=== PATIENT | male | born 1940 | race African-American/Black ===

== ENCOUNTER 2017-05-12 12:10 | Inpatient (IN) | payer OTHER ==
--- NOTE | 2017-05-12 13:37 | PDOC ---
History of Present Illness - General History Source: Patient Exam Limitations: No Limitations - History of Present Illness Initial Comments: 05/12/17 14:18 The patient is a 76 year old male,MARGI brown with a significant past medical history of renal failure s/p left sided kidney transplant, triple bypass surgery, HTN, HLD, IDDM, CHF, who presents to the emergency department with hypoglycemia. EMS reports the patient having a finger stick of 31 earlier today with a return of his blood sugar to 247 after dextrose. Per EMS patient did not eat this morning or last night, but had his usual dose of insulin. Patients finger stick was 247 in the ED. He arrives with chief complaints of SOB but patient is a poor historian and can not elaborate on how long he has had SOB. On arrival to ED, O2 sat on RA was 85%, corrected to 96% on 3L. He denies any recent fevers, chills, headache or dizziness. He denies any recent nausea, vomit, diarrhea or constipation. He denies any recent chest pain. He denies any recent dysuria, frequency, urgency or hematuria. Allergies: NKA Past surgical history: See HPI Social History: Nonsmoker. Denies EtOH use and recreational drug use. Primary Care Physician: <Vaibhav Pineda - Last Filed: 05/12/17 14:18> <Ildefonso Maddox - Last Filed: 05/12/17 18:15> - General Chief Complaint: Blood Sugar Problem Stated Complaint: Blood Sugar Problem Time Seen by Provider: 05/12/17 12:35 Past History <Vaibhav Pineda - Last Filed: 05/12/17 14:18> - Past Medical History Diabetes: Yes Disorders: Yes (bph, uti,) HTN: Yes Liver Disease: Yes Suicide Attempt (Hx): No Other medical history: encephalopathy, chronic ulcer rt.foot. - Surgical History Cardiac Surgery: Yes - Psycho/Social/Smoking Cessation Hx Suicidal Ideation: No Smoking History: Former smoker Have you smoked in the past 12 months: No If you are a former smoker, when did you quit?: 12 years Information on smoking cessation initiated: No Hx Alcohol Use: No Drug/Substance Use Hx: No Substance Use Type: None <Ildefonso Maddox - Last Filed: 05/12/17 18:15> - Past Medical History Allergies/Adverse Reactions: Allergies Allergy/AdvReac Type Severity Reaction Status Date / Time No Known Allergies Allergy Verified 03/04/15 23:02 Home Medications: Ambulatory Orders Aspirin [Aspirin EC] 81 mg PO DAILY 03/05/15 Clonidine HCl 0.1 mg PO Q12H 03/05/15 Insulin (Levemir) [Levemir Flexpen -] 12 unit SQ HS 03/05/15 Prednisone [Deltasone -] 5 mg PO DAILY 03/05/15 Tacrolimus 5 mg PO BID 03/05/15 Tamsulosin HCl [Flomax -] 0.4 mg PO HS 03/05/15 Acetaminophen [Pain Relief] 650 mg PO Q6H PRN 05/12/17 Albuterol 0.083% Nebulizer Gisele [Ventolin 0.083% Nebulizer Soln -] 1 amp NEB BID 05/12/17 Atorvastatin Ca [Lipitor] 20 mg PO HS 05/12/17 Bacitracin - [Bacitracin Topical Ointment -] 1 applic TP ASDIR 05/12/17 Carvedilol [Coreg] 25 mg PO Q12H 05/12/17 Clopidogrel Bisulfate [Plavix -] 75 mg PO DAILY 05/12/17 Collagenase Clostridium Hist. [Santyl -] 1 applic TP DAILY 05/12/17 Ferrous Sulfate 325 mg PO DAILY 05/12/17 Glucagon,Human Recombinant [Glucagon Emergency Kit] 1 mg IJ ASDIR 05/12/17 Hydralazine HCl 100 mg PO TID 05/12/17 Insulin Aspart [Novolog] 0 unit SQ AC PRN 05/12/17 Isosorbide Dinitrate [Dilatrate-Sr -] 40 mg PO TID 05/12/17 Lidocaine 1 each TP DAILY 05/12/17 Mirtazapine 15 mg PO HS 05/12/17 Mycophenolate Sodium [Mycophenolic Acid] 360 mg PO BID 05/12/17 Oxycodone HCl 5 mg PO Q6H PRN 05/12/17 Sennosides [Sen-O-Tab] 2 tab PO HS 05/12/17 Sodium Bicarbonate - 650 mg PO TID 05/12/17 Torsemide [Demadex] 60 mg PO BID 05/12/17 Trazodone HCl 50 mg PO HS 05/12/17 Review of Systems - Review of Systems Able to Perform ROS?: Yes Comments:: 05/12/17 14:18 GENERAL/CONSTITUTIONAL: No fever or chills. No weakness. HEAD, EYES, EARS, NOSE AND THROAT: No change in vision. No ear pain or discharge. No sore throat. CARDIOVASCULAR: +shortness of breath. No chest pain RESPIRATORY: No cough, wheezing, or hemoptysis. GASTROINTESTINAL: No nausea, vomiting, diarrhea or constipation. GENITOURINARY: No dysuria, frequency, or change in urination. MUSCULOSKELETAL: No joint or muscle swelling or pain. No neck or back pain. SKIN: No rash NEUROLOGIC: No headache, vertigo, loss of consciousness, or change in strength/ sensation. ENDOCRINE: No increased thirst. No abnormal weight change. HEMATOLOGIC/LYMPHATIC: No anemia, easy bleeding, or history of blood clots. ALLERGIC/IMMUNOLOGIC: No hives or skin allergy. <Vaibhav Pineda - Last Filed: 05/12/17 14:18> *Physical Exam - Vital Signs Last Vital Signs Temp Pulse Resp BP Pulse Ox 98.7 F 66 16 162/107 84 L 05/12/17 12:24 05/12/17 12:24 05/12/17 12:24 05/12/17 12:24 05/12/17 12:24 - Physical Exam Comments: 05/12/17 14:18 GENERAL: Awake, alert, in no acute distress. Disheveled. Has an 02 sat of 84 that is brought up to 96 with 3 L of oxygen. HEAD: No signs of trauma EYES: PERRLA, EOMI, sclera anicteric, conjunctiva clear ENT: Auricles normal inspection, hearing grossly normal, nares patent, oropharynx clear without exudates. Moist mucosa NECK: Normal ROM, supple, no lymphadenopathy, JVD, or masses LUNGS: Breath sounds equal, but diminished at bases bilaterally . No wheezes, and no crackles HEART: Sinus bradycardia. regular. normal S1 and S2, no murmurs, rubs or gallops ABDOMEN: +distended but soft, nontender, normoactive bowel sounds. No guarding, no rebound. No masses EXTREMITIES: Left distal calf anteriorly 5x6 cm circular blister with serosanguinous drainage. On the medial aspect of his right great toe 1 cm punched out that is malodorous but without drainage. Normal range of motion. 2+ distal pulses NEUROLOGICAL: Normal speech, cranial nerves intact, negative pronator drift, 5/ 5 strength in all 4 extremities, normal sensation to light touch in all 4 extremities, normal cerebellar exam, normal gait, normal reflexes and tone SKIN: Warm, Dry, normal turgor, no rashes or lesions noted. <Vaibhav Pineda - Last Filed: 05/12/17 14:18> - Vital Signs Last Vital Signs Temp Pulse Resp BP Pulse Ox 98.7 F 66 16 162/107 84 L 05/12/17 12:24 05/12/17 12:24 05/12/17 12:24 05/12/17 12:24 05/12/17 12:24 <Ildefonso Maddox - Last Filed: 05/12/17 18:15> ED Treatment Course - LABORATORY CBC & Chemistry Diagram: 05/12/17 13:24 05/12/17 11:33 - ADDITIONAL ORDERS Additional order review: Laboratory Results 05/12/17 05/12/17 12:24 11:33 Sodium 139 Potassium 3.8 Chloride 100 Carbon Dioxide 23 Anion Gap 16 BUN 79 H D Creatinine 2.3 H D Creat Clearance w eGFR 27.93 POC Glucometer 269.54671 Random Glucose 160 H D Calcium 9.4 Magnesium 2.4 Total Bilirubin 3.1 H D AST 45 H ALT 29 D Alkaline Phosphatase 205 H Troponin I 0.14 H D Total Protein 6.7 D Albumin 3.3 L D Lipase 48 L 05/12/17 05/12/17 13:24 12:24 RBC 5.08 MCV 78.7 L MCHC 31.6 L RDW 18.3 H D MPV 10.7 D Neutrophils % 91.7 H Lymphocytes % 2.8 L D Monocytes % 5.3 Eosinophils % 0.0 D Basophils % 0.2 POC Glucometer 269.21737 <Vaibhav Pineda - Last Filed: 05/12/17 14:18> - LABORATORY CBC & Chemistry Diagram: 05/12/17 13:24 05/12/17 11:33 - ADDITIONAL ORDERS Additional order review: Laboratory Results 05/12/17 12:24 POC Glucometer [id number] 05/12/17 12:24 POC Glucometer [id number] - RADIOLOGY Radiology Studies Ordered: Category Date Time Status CHEST X-RAY PORTABLE* [RAD] Stat Radiology 05/12/17 13:03 Taken <Ildefonso Maddox - Last Filed: 05/12/17 18:15> Medical Decision Making - Medical Decision Making 05/12/17 13:43 76-year-old male care home resident, history of CHF and multiple medical problems presents with hypoglycemia, shortness of breath and hypoxia. Exam with diminished BS b/l. Concern for PNA +/- CHF exacerbation. Hypoglycemia likely 2/ 2 poor appetite possibly from infection. -labs -concepcion cx -cxr -us -admit 05/12/17 14:48 Chest x-ray with diffuse infiltrates concerning for pneumonia versus CHF. Patient with a white count of 12.5 concerning for healthcare acquired pneumonia. Will cover with Vancomycin, Zosyn, and azithro. Patient's BNP very elevated in the 60,000 range concerning for fluid overload. Patient given 40 of IV Lasix. I spoke with Dr. Patel who is covering for Dr. Guillen and he recommends we admit the patient to the ICU. We will also call pulmonology, infectious disease, and renal. 05/12/17 14:[address] Chambers (pulm) who accepts the patient to the ICU. We are awaiting a call back from ID and renal. 05/12/17 15:[address] Mcfarlane (ID) who will see pt. <Ildefonso Maddox - Last Filed: 05/12/17 18:15> *DC/Admit/Observation/Transfer - Attestations Scribe Attestion: 05/12/17 14:19 Documentation prepared by Vaibhav Pineda, acting as medical records assistant for Ildefonso Maddox MD. <Vaibhav Pineda - Last Filed: 05/12/17 14:18> - Discharge Dispostion Admit: Yes - Attestations Physician Attestion: 05/12/17 14:54 I, Dr. Ildefonso Maddox MD, attest that this document has been prepared under my direction and personally reviewed by me in its entirety. I further attest, that it accurately reflects all work, treatment, procedures and medical decision -making performed by me. <Ildefonso Maddox - Last Filed: 08/21/17 18:15> Diagnosis at time of Disposition: Shortness of breath - Referrals
[2017-05-12 13:44] LABS: BASOPHIL 0.2 % (0-2.0); MCH 24.9 pg (25.7-33.7); MCHC 31.6 g/dl (32.0-35.9); MEAN CELL VOLUME 78.7 fl (80-96); MEAN PLT VOLUME 10.7 fl (7.5-11.1); NEUTROPHILS 91.7 % (42.8-82.8); PLATELET COUNT 83 K/MM3 (134-434); RDW 18.3 % (11.9-15.9); WHITE BLOOD COUNT 12.1 K/mm3 (4.0-10.0)
[2017-05-12 14:07] LABS: ALBUMIN 3.3 g/dl (3.4-5.0); ANION GAP 16 (8-16); BILIRUBIN,TOTAL 3.1 mg/dL (0.2-1.0); CALCIUM 9.4 mg/dL (8.5-10.1); CO2 23 mmol/L (21-32); CREATININE 2.3 mg/dL (0.7-1.3); GLUCOSE,RANDOM 160 mg/dL (74-106); SGPT/ALT 29 U/L (12-78); TOT PROT 6.7 g/dl (6.4-8.2)
[2017-05-12 14:08] LABS: INR 1.76 (0.82-1.09); PROTHROMBIN TIME (PATIENT) 19.6 SEC (9.98-11.88)
[2017-05-12] MEDS ORDERED: AZITHROMYCIN IVPB 500 MG in DEXTROSE 5%-WATER - 250 ML IVPB ONE (14:09)
[2017-05-12 14:10] LABS: ALK PHOS 205 U/L (45-117); TROPONIN I 0.14 ng/ml (0.00-0.05)
[2017-05-12] MEDS ORDERED: VANCOMYCIN 1,250 MG in DEXTROSE 5%-WATER - 250 ML IVPB ONE (14:10)
[2017-05-12] MEDS ORDERED: PIPERACILLIN/TAZOB 4.5 GM 4.5 GM in DEXTROSE 5%-WATER - 100 ML IVPB ONE (14:10)
[2017-05-12 14:12] LABS: MAGNESIUM 2.4 mg/dL (1.8-2.4); SGOT/AST 45 U/L (15-37)
[2017-05-12] MEDS ORDERED: AZITHROMYCIN IVPB 250 ML IVPB ONE (14:19)
[2017-05-12] MEDS ORDERED: PIPERACILLIN/TAZOB 4.5 GM 100 ML IVPB ONE ×2 (14:20→14:22)
[2017-05-12] MEDS ORDERED: FUROSEMIDE 40 MG/4 ML INJECTABLE VIAL IVPUSH ONE (14:43)
[2017-05-12] MEDS ORDERED: FUROSEMIDE 40 MG/4 ML INJECTABLE VIAL ONE (14:50)
[2017-05-12 14:53] LABS: URINE APPEARANCE CLEAR; URINE BILIRUBIN NEGATIVE (NEGATIVE); URINE BLOOD NEGATIVE (NEGATIVE); URINE COLOR YELLOW; URINE GLUCOSE (UA) NEGATIVE (NEGATIVE); URINE KETONE NEGATIVE (NEGATIVE); URINE LEUK ESTERASE NEGATIVE (NEGATIVE); URINE NITRITE NEGATIVE (NEGATIVE); URINE PROTEIN NEGATIVE (NEGATIVE)
--- NOTE | 2017-05-12 16:20 | CONSULT ---
Consultation: REQUESTING PROVIDER: CONSULT REQUEST: ID HISTORY OF PRESENT ILLNESS: Patient is a 76 yo M with a pmh of renal failure s/ p left sided kidney transplant and triple bypass surgery, BIBA from [place] [facility] for hypoglycemia. EMS recorded a finger stick glucose of 31. Patient had SOB upon ED arrival (O2 Sat of 84%) that started yesterday but said he feels better now. He also had urinary urgency and difficulty urinating. He currently has no complaints. He denies chest pain, cough, fever, chills night sweats, nausea and vomiting. PMH: Renal failure s/p left sided kidney transplant triple bypass HTN HLD IDDM CHF Allergies: NKDA Social Hx: non smoker, denies alcohol and drug use REVIEW OF SYSTEMS: CONSTITUTIONAL: Absent: fever, chills, diaphoresis, generalized weakness, malaise, loss of appetite, weight change HEENT: Absent: rhinorrhea, nasal congestion, throat pain, throat swelling, difficulty swallowing, mouth swelling, ear pain, eye pain, visual changes CARDIOVASCULAR: Absent: chest pain, syncope, palpitations, irregular heart rate, lightheadedness , peripheral edema RESPIRATORY: Absent: cough, shortness of breath, dyspnea with exertion, orthopnea, wheezing, stridor, hemoptysis GASTROINTESTINAL: Absent: abdominal pain, abdominal distension, nausea, vomiting, diarrhea, constipation, melena, hematochezia GENITOURINARY: Absent: dysuria, frequency, urgency, hesitancy, hematuria, flank pain, genital pain MUSCULOSKELETAL: Absent: myalgia, arthralgia, joint swelling, back pain, neck pain SKIN: Absent: rash, itching, pallor HEMATOLOGIC/IMMUNOLOGIC: Absent: easy bleeding, easy bruising, lymphadenopathy, frequent infections ENDOCRINE: Absent: unexplained weight gain, unexplained weight loss, heat intolerance, cold intolerance NEUROLOGIC: Absent: headache, focal weakness or paresthesias, dizziness, unsteady gait, seizure, mental status changes, bladder or bowel incontinence PSYCHIATRIC: Absent: anxiety, depression, suicidal or homicidal ideation, hallucinations. PHYSICAL EXAMINATION Vital Signs - 24 hr 05/12/17 15:19 Temperature 97.8 F Pulse Rate [ 55 L Left Apical] Respiratory 16 Rate Blood Pressure 152/82 [Right Arm] O2 Sat by Pulse 96 Oximetry (%) GENERAL: Awake, alert, and fully oriented, in no acute distress. HEAD: Normal with no signs of trauma. EYES: Scleral icterus EARS, NOSE, THROAT: Ears normal, nares patent, oropharynx clear without exudates. Moist mucous membranes. NECK: supple LUNGS: Breath sounds equal, clear to auscultation bilaterally. No wheezes, and no crackles. No accessory muscle use. HEART: sinus bradycardia, normal S1 and S2 without murmur, rub or gallop. ABDOMEN: soft, distended, normoactive bowel sounds, no guarding, no rebound, no masses. EXTREMITIES: 1cm ulcerated punched out lesion on right great toe without drainage, 5x6cm Left padron blister with serosanguinous drainage. ASSESSMENT/PLAN: 1) Hypoglycemia secondary to Sepsis - PNA vs CHF - HCAP vs Opportunistic (immunosuppressive therapy) -Start Antibiotics: Zosyn -Stop Vancomycin (renal failure) -Stop Zithromax (interaction with tacrolimus) -Pending urine and blood cultures Dispo: We will continue to follow the patient. Thank you for this consultative opportunity. Visit type - Emergency Visit Emergency Visit: Yes ED Registration Date: 05/12/17 Care time: The patient presented to the Emergency Department on the above date and was hospitalized for further evaluation of their emergent condition. - New Patient This patient is new to me today: Yes Date on this admission: 05/12/17 - Critical Care Critical Care patient: No
--- NOTE | 2017-05-12 17:17 | EKG ---
Test Reason : Blood Pressure : / mmHG Vent. Rate : 056 BPM Atrial Rate : 375 BPM P-R Int : 224 ms QRS Dur : 110 ms QT Int : 502 ms P-R-T Axes : 070 108 -82 degrees QTc Int : 484 ms LIKELY SINUS BRADYCARDIA WITH PREMATURE VENTRICULAR COMPLEX RIGHTWARD AXIS NONSPECIFIC T WAVE ABNORMALITY PROLONGED QT ABNORMAL ECG WHEN COMPARED WITH ECG OF 07-MAR-2015 08:54, VENTRICULAR ECTOPIES ARE SEEN Confirmed by ANILA NAGY, COLEEN ([id number]) on 05/12/2017 5:17:39 PM Referred By: Confirmed By:COLEEN HIGH MD
--- NOTE | 2017-05-12 17:46 | PN ---
Teaching Attending Note Name of Resident: Sunshine Li ATTENDING PHYSICIAN STATEMENT I saw and evaluated the patient. I reviewed the resident's note and discussed the case with the resident. I agree with the resident's findings and plan as documented. SUBJECTIVE: OBJECTIVE: ASSESSMENT AND PLAN: Bilateral pneumonia v. CHF S/P Renal transplant on immunosuppressive meds CKD DM Bilateral LE ulcers Elevated TBR/AP Passive congestion v. biliary tract disease Continue zosyn/ vanco adjusted for CKD D/C azithromycin (Tacrolimus interaction) CT chest R/O parapneumonic effusion
[2017-05-12] MEDS ORDERED: PIPERACILLIN/TAZOB 2.25 GM 2.25 GM in DEXTROSE 5%-WATER - 50 ML IVPB SCH (18:00)
[2017-05-12 19:07] VITALS: BMI 22.6
[2017-05-12] MEDS ORDERED: oxyCODONE HCL 5 MG TABLET PO PRN (20:34)
[2017-05-12] MEDS ORDERED: ALBUTEROL SO4 2.5/IPRATROPIUM 0.5 INH SOL 3 ML VIAL.NEB. NEB PRN (20:34)
[2017-05-12] MEDS ORDERED: ACETAMINOPHEN 325 MG TABLET (FP) PO PRN (20:34)
--- NOTE | 2017-05-12 21:48 | CONSULT ---
Consult Consult Specialty:: Pulm/CCM Reason for Consultation:: pulmonary edema, ABNER - History of Present Illness Chief Complaint: weakness History of Present Illness: Mr Drew is a 76 year old man with pmhx significant for ESRD s/p left sided kidney transplant (unk baseline Cr,on MMF, Tacro and Pred) , triple bypass surgery, HTN, HLD, IDDM, CHF s/p AICD who receives most of his care at [facility], who today presentes to the emergency department with hypoglycemia. [facility] where he resides apparently called EMS for finger stick of 31 with a return of his blood sugar to 247 after dextrose. Per EMS patient did not eat this morning or last night, but had his usual dose of insulin. It is unclear why he was transported to ED as there was no other acute complaint. Patients finger stick was 247 in the ED. In ED pt was awake, alert, oriented (though poor historian, and has difficulty articulating his medical issues). On exam pt was afebrile, mildly tachypneic, Spo2 88, HR 66, RR 22. He was not distressed. Denies LOC, Fever, Chills, chest pain, GONSALVES, dizziness, falls, N/V/D, dysuria, increased abd girth or medication non compliance. Labs were notable for Wbc 12, Bun/Cr 79/2.3, Hco3 23, Tbili 3.1, AST 45, Alkphos 205. Trop was 0.14. Cxr with pulm edema vs infitrate R > L. Abx and diuretic given. On 2L nc. Dr Patel admited to ICU. - History Source History Provided By: Patient, Medical Record Limitations to Obtaining History: Poor Historian - Past Medical History Cardio/Vascular: Yes: CAD, HTN Renal/: Yes: Renal Failure (S/P renal transplant), Hemodialysis Endocrine: Yes: Diabetes Mellitus - Past Surgical History Past Surgical History: Yes: AV Fistula/Graft (Left), CABG, Kidney Transplant ( Left) - Alcohol/Substance Use Hx Alcohol Use: No History of Substance Use: reports: Marijuana Date of Last Use: 02/20/83 - Smoking History Smoking history: Former smoker Have you smoked in the past 12 months: No If you are a former smoker, when did you quit?: 12 years - Social History Usual Living Arrangement: Skilled Nursing ADL: Independent Occupation: Retired- construction supervisor History of Recent Travel: No Home Medications - Allergies Allergies/Adverse Reactions: Allergies Allergy/AdvReac Type Severity Reaction Status Date / Time No Known Allergies Allergy Verified 03/04/15 23:02 - Home Medications Home Medications: Ambulatory Orders Aspirin [Aspirin EC] 81 mg PO DAILY 03/05/15 Clonidine HCl 0.1 mg PO Q12H 03/05/15 Insulin (Levemir) [Levemir Flexpen -] 12 unit SQ HS 03/05/15 Prednisone [Deltasone -] 5 mg PO DAILY 03/05/15 Tacrolimus 5 mg PO BID 03/05/15 Tamsulosin HCl [Flomax -] 0.4 mg PO HS 03/05/15 Acetaminophen [Pain Relief] 650 mg PO Q6H PRN 05/12/17 Albuterol 0.083% Nebulizer Gisele [Ventolin 0.083% Nebulizer Soln -] 1 amp NEB BID 05/12/17 Atorvastatin Ca [Lipitor] 20 mg PO HS 05/12/17 Bacitracin - [Bacitracin Topical Ointment -] 1 applic TP ASDIR 05/12/17 Carvedilol [Coreg] 25 mg PO Q12H 05/12/17 Clopidogrel Bisulfate [Plavix -] 75 mg PO DAILY 05/12/17 Collagenase Clostridium Hist. [Santyl -] 1 applic TP DAILY 05/12/17 Ferrous Sulfate 325 mg PO DAILY 05/12/17 Glucagon,Human Recombinant [Glucagon Emergency Kit] 1 mg IJ ASDIR 05/12/17 Hydralazine HCl 100 mg PO TID 05/12/17 Insulin Aspart [Novolog] 0 unit SQ AC PRN 05/12/17 Isosorbide Dinitrate [Dilatrate-Sr -] 40 mg PO TID 05/12/17 Lidocaine 1 each TP DAILY 05/12/17 Mirtazapine 15 mg PO HS 05/12/17 Mycophenolate Sodium [Mycophenolic Acid] 360 mg PO BID 05/12/17 Oxycodone HCl 5 mg PO Q6H PRN 05/12/17 Sennosides [Sen-O-Tab] 2 tab PO HS 05/12/17 Sodium Bicarbonate - 650 mg PO TID 05/12/17 Torsemide [Demadex] 60 mg PO BID 05/12/17 Trazodone HCl 50 mg PO HS 05/12/17 Family Disease History - Family Disease History Family History: Denies Review of Systems Findings/Remarks: > Very limited hx - Review of Systems Constitutional: reports: Weakness Eyes: reports: No Symptoms HENT: reports: No Symptoms Neck: reports: No Symptoms Cardiovascular: reports: No Symptoms. denies: Chest Pain, Edema Respiratory: reports: SOB on Exertion Gastrointestinal: reports: Constipation. denies: Abdominal Pain, Bloating Genitourinary: reports: No Symptoms Breasts: reports: No Symptoms Reported Musculoskeletal: reports: No Symptoms Integumentary: reports: Blister (L padron) Endocrine: reports: No Symptoms Hematology/Lymphatic: reports: No Symptoms Psychiatric: reports: No Symptoms Pain Intensity: 0 Physical Exam Vital Signs: Vital Signs Temperature 97.8 F 05/12/17 20:15 Pulse Rate 56 L 05/12/17 20:15 Respiratory Rate 05/12/17 20:15 Blood Pressure 147/78 05/12/17 20:15 O2 Sat by Pulse Oximetry (%) 99 05/12/17 20:15 Constitutional: Yes: Well Nourished, No Distress, Calm Eyes: Yes: Conjunctiva Clear, EOM Intact HENT: Yes: Atraumatic, Normocephalic Neck: Yes: Trachea Midline Cardiovascular: Yes: Pulse Irregular, JVD, Murmur Respiratory: Yes: On Nasal O2, Rales. No: Accessory Muscle Use, Cough Gastrointestinal: Yes: Normal Bowel Sounds, Soft, Distention, Other (Kidney tx RLQ). No: Palpable Mass, Pulsatile Mass, Tenderness ...Rectal Exam: Yes: Deferred Renal/: Yes: Davila Present, Oliguria Breast(s): Yes: WNL Extremities: Yes: Delayed Capillary Refill Edema: No Peripheral Pulses WNL: Yes (LUE AVF + thrill) Integumentary: Yes: Skin Tear, Venous Stasis Changes, Other (R great toe ulcer) Imaging - Results X-ray: Report Reviewed, Image Reviewed EKG: Report Reviewed (sinus with PVC, R axis deviation, non specific T wave changes), Image Reviewed Problem List - Problems (1) Shortness of breath Code(s): R06.02 - SHORTNESS OF BREATH (2) Systolic CHF Code(s): I50.20 - UNSPECIFIED SYSTOLIC (CONGESTIVE) HEART FAILURE (3) Diabetes mellitus Code(s): E11.9 - TYPE 2 DIABETES MELLITUS WITHOUT COMPLICATIONS (4) HTN (hypertension) Code(s): I10 - ESSENTIAL (PRIMARY) HYPERTENSION (5) Hyperlipidemia Code(s): E78.5 - HYPERLIPIDEMIA, UNSPECIFIED (6) Renal failure, chronic Code(s): N18.9 - CHRONIC KIDNEY DISEASE, UNSPECIFIED (7) Hepatic congestion Code(s): K76.1 - CHRONIC PASSIVE CONGESTION OF LIVER Assessment/Plan A/ 76 y/o man with ESRD s/p renal transplant, CHF s/p AICD, HTN, IDDM, HL p/w weakness and hypoglycemia found to have pulm edema vs PNA, acute on (likely) chronic CKD, with elevate bili c/f congestive hepatopathy, elevate troponin. P/ Pulm: bilateral R > L infiltrates likely pulm edema, also c/f HAP -gentle diuresis for goal out 1L -agree with HAP coverage, if worsens would have low threshold to broaden given immunocompromised state -Fio2 as needed -daily CXR CV: CHF now with signs of poor forward flow - diuresis, may need inotrope -increase lasix dose -check TTE -check trop x 3, - BNP is not useful due to renal failure -daily EKG BANER: unclear baseline Cr but elevate BUN suggestive this is acute, CR 1.5 ~ 2 yrs ago, suspect due to heart failure given also appears to have congestive hepatopathy -lasix for goal net out -no indication for renal replacement -transplant renal US with doppler -check tracro level in am (is send out) -need input of transplant nephrology or transfer to [facility] ID: PNA--> HAP -Vanco by level -Pip/Hai - add 2nd GN coverage if decomps -sput cxl if possible GI: elevate Tbili suggestive of congestive hepatopathy -Abd US -trend -GI consult if doesnt improve with diuresis Prophy: SQH, PPI Bryan Olguin ACNP [id number]
[2017-05-12] MEDS ORDERED: traZODone HCL 50 MG TABLET (FP) PO SCH (22:00)
[2017-05-12] MEDS ORDERED: ATORVASTATIN CA 20 MG TABLET (FP) PO SCH (22:00)
[2017-05-12] MEDS ORDERED: INSULIN DETEMIR 100 UNITS/ML MDV SQ SCH (22:00)
[2017-05-12] MEDS ORDERED: DOCUSATE SODIUM 100 MG CAPSULE (FP) PO SCH (22:00)
[2017-05-12] MEDS ORDERED: SENNOSIDES 8.6MG TABLET (FP) PO SCH (22:00)
[2017-05-12] MEDS ORDERED: MIRTAZAPINE 15 MG TABLET (FP) PO SCH (22:00)
[2017-05-12] MEDS: CARVEDILOL 12.5 MG TABLET (FP) PO SCH (22:07)
[2017-05-12] MEDS: cloNIDine HCL 0.1 MG TABLET PO SCH (22:07)
[2017-05-12] MEDS: hydrALAZINE HCL 50 MG TABLET (FP) PO SCH (22:07)
[2017-05-12] MEDS: SODIUM BICARBONATE 650 MG TABLET PO SCH (22:07)
[2017-05-12] MEDS: INSULIN SLIDING SCALE (NOVOLOG) 1 VIAL SQ SCH (22:16)
[2017-05-12] MEDS ORDERED: INSULIN (NOVOLOG) ASPART 100 UNITS/ML 10ML VIAL ONE (22:21)
[2017-05-13] MEDS: PIPERACILLIN/TAZOB 2.25 GM 50 ML IVPB SCH ×3 (02:58→17:50)
[2017-05-13] MEDS: INSULIN SLIDING SCALE (NOVOLOG) 1 VIAL SQ SCH ×4 (06:12→22:02)
[2017-05-13] MEDS: hydrALAZINE HCL 50 MG TABLET (FP) PO SCH ×3 (06:12→22:00)
[2017-05-13 06:54] LABS: MCH 25.3 pg (25.7-33.7); MCHC 32.3 g/dl (32.0-35.9); MEAN CELL VOLUME 78.2 fl (80-96); MEAN PLT VOLUME 10.6 fl (7.5-11.1); PLATELET COUNT 91 K/MM3 (134-434); RDW 17.9 % (11.9-15.9); WHITE BLOOD COUNT 9.2 K/mm3 (4.0-10.0)
[2017-05-13 07:21] LABS: CALCIUM 9.2 mg/dL (8.5-10.1)
[2017-05-13 07:28] LABS: ALBUMIN 3.3 g/dl (3.4-5.0); ALK PHOS 207 U/L (45-117); ANION GAP 12 (8-16); BILIRUBIN,TOTAL 2.1 mg/dL (0.2-1.0); CO2 29 mmol/L (21-32); CREATININE 2.2 mg/dL (0.7-1.3); GLUCOSE,RANDOM 96 mg/dL (74-106); SGOT/AST 30 U/L (15-37); SGPT/ALT 27 U/L (12-78); TOT PROT 6.5 g/dl (6.4-8.2)
[2017-05-13] MEDS ORDERED: TAMSULOSIN HCL 0.4 MG CAP.ER.24H (FP) PO SCH (08:30)
[2017-05-13] MEDS: cloNIDine HCL 0.1 MG TABLET PO SCH ×2 (09:20→22:00)
[2017-05-13] MEDS: CARVEDILOL 12.5 MG TABLET (FP) PO SCH ×2 (09:20→22:02)
[2017-05-13] MEDS: SODIUM BICARBONATE 650 MG TABLET PO SCH (09:20)
[2017-05-13] MEDS ORDERED: PT OWN MED DRAWER 7, Y5N ONE ×3 (09:39→21:51)
[2017-05-13] MEDS: ISOSORBIDE DINITRATE 40 MG PO SCH ×2 (09:39→17:50)
[2017-05-13] MEDS ORDERED: CLOPIDOGREL BISULFATE 75 MG TABLET (FP) PO SCH (10:00)
[2017-05-13] MEDS ORDERED: TORSEMIDE 20 MG TABLET (FP) PO SCH (10:00)
[2017-05-13] MEDS ORDERED: predniSONE 5 MG TABLET (UD) PO SCH (10:00)
[2017-05-13] MEDS ORDERED: COLLAGENASE CLOSTRIDIUM HIST. 30 GRAMS TUBE TP SCH (10:00)
[2017-05-13] MEDS ORDERED: MYCOPHENOLATE SODIUM 360 MG TABLET.DR PO SCH (10:00)
[2017-05-13] MEDS ORDERED: ASPIRIN 81 MG CHEWABLE TABLETS PO SCH (10:00)
--- NOTE | 2017-05-13 10:41 | PN ---
Physical Exam: SUBJECTIVE: Patient seen and examined. Very lethargic. Not offering any complaints. OBJECTIVE: Vital Signs Period Temp Pulse Resp BP Sys/Gonsalez Pulse Ox Last 24 Hr 97.8 F-98.6 F 54-60 16-23 133-159/67-88 96-99 GENERAL: Awake, alert, and fully oriented, in no acute distress. HEAD: Normal with no signs of trauma. EYES: Scleral icterus EARS, NOSE, THROAT: Ears normal, nares patent, oropharynx clear without exudates. Moist mucous membranes. NECK: supple LUNGS: Breath sounds equal, clear to auscultation bilaterally. No wheezes, and no crackles. No accessory muscle use. HEART: sinus bradycardia, normal S1 and S2 without murmur, rub or gallop. ABDOMEN: soft, distended, normoactive bowel sounds, no guarding, no rebound, no masses. EXTREMITIES: 1cm ulcerated punched out lesion on right great toe without drainage, 5x6cm Left padron blister without drainage Laboratory Results - last 24 hr 05/12/17 05/12/17 05/12/17 15:55 20:10 22:05 WBC RBC Hgb Hct MCV MCH MCHC RDW Plt Count MPV Sodium Potassium Chloride Carbon Dioxide Anion Gap BUN Creatinine Creat Clearance w eGFR POC Glucometer [phone] Random Glucose Lactic Acid Calcium Total Bilirubin AST ALT Alkaline Phosphatase Total Protein Albumin Random Vancomycin 05/13/17 05/13/17 05/13/17 05:20 05:20 05:20 WBC 9.2 RBC 4.99 Hgb 12.6 Hct 39.0 MCV 78.2 L MCH 25.3 L MCHC 32.3 RDW 17.9 H Plt Count 91 L MPV 10.6 Sodium 140 Potassium 3.7 Chloride 99 Carbon Dioxide 29 D Anion Gap 12 BUN 84 H Creatinine 2.2 H Creat Clearance w eGFR 29.41 POC Glucometer Random Glucose 96 D Lactic Acid Calcium 9.2 Total Bilirubin 2.1 H D AST 30 D ALT 27 Alkaline Phosphatase 207 H Total Protein 6.5 Albumin 3.3 L Random Vancomycin 15.412 05/13/17 05/13/17 05:20 05:53 WBC RBC Hgb Hct MCV MCH MCHC RDW Plt Count MPV Sodium Potassium Chloride Carbon Dioxide Anion Gap BUN Creatinine Creat Clearance w eGFR POC Glucometer [phone] Random Glucose Lactic Acid 1.7 Calcium Total Bilirubin AST ALT Alkaline Phosphatase Total Protein Albumin Random Vancomycin Active Medications Generic Name Dose Route Start Last Admin Trade Name Freq PRN Reason Stop Dose Admin Acetaminophen 650 mg 05/12/17 20:34 Tylenol - PO Q6H PRN FEVER OR PAIN Albuterol/Ipratropium 1 amp 05/12/17 20:34 Duoneb - NEB Q6H PRN SHORTNESS OF BREATH Aspirin 81 mg 05/13/17 10:00 05/13/17 09:32 Asa - PO 81 mg DAILY [facility] Administration Atorvastatin Calcium 20 mg 05/12/17 22:00 05/12/17 22:07 Lipitor - PO 20 mg HS [facility] Administration Carvedilol 12.5 mg 05/12/17 22:00 05/13/17 09:20 Coreg - PO 12.5 mg BID [facility] Administration Clonidine 0.1 mg 05/12/17 22:00 05/13/17 09:20 Catapres - PO 0.1 mg BID [facility] Administration Clopidogrel Bisulfate 75 mg 05/13/17 10:00 05/13/17 09:31 Plavix - PO 75 mg DAILY [facility] Administration Collagenase 1 applic 05/13/17 10:00 05/13/17 09:31 Santyl - TP 1 applic DAILY [facility] Administration Docusate Sodium 300 mg 05/12/17 22:00 05/12/17 22:07 Colace - PO 300 mg HS [facility] Administration Hydralazine HCl 100 mg 05/12/17 22:00 05/13/17 06:12 Apresoline - PO 100 mg TID [facility] Administration Piperacillin Sod/Tazobactam Sod 50 mls @ 100 mls/hr 05/12/17 18:37 05/13/17 09: 21 Zosyn 2.25gm Ivpb (Pre-Docked) IVPB 100 mls/hr Q8H-IV [facility] Administration Protocol Insulin Aspart 1 vial 05/12/17 22:00 05/13/17 06:12 Novolog Vial Sliding Scale - SQ Not Given ACHS [facility] Protocol Insulin Detemir 15 units 05/12/17 22:00 05/12/17 22:16 Levemir Vial SQ Not Given HS [facility] Isosorbide Dinitrate 40 mg 05/13/17 10:00 05/13/17 09:39 Isoditrate Er PO 40 mg BIDISORDIL [facility] Administration Mirtazapine 15 mg 05/12/17 22:00 05/12/17 22:07 Remeron - PO 15 mg HS [facility] Administration Mycophenolate Sodium 360 mg 05/13/17 10:00 05/13/17 09:40 Mycophenolic Acid PO 360 mg DAILY [facility] Administration Oxycodone HCl 5 mg 05/12/17 20:34 Roxicodone - PO Q6H PRN PAIN Prednisone 5 mg 05/13/17 10:00 05/13/17 09:40 Deltasone - PO 5 mg DAILY [facility] Administration Senna 2 tab 05/12/17 22:00 05/12/17 22:07 Senna - PO 2 tab HS [facility] Administration Sodium Bicarbonate 650 mg 05/12/17 22:00 05/13/17 09:20 Sodium Bicarbonate - PO 650 mg BID [facility] Administration Tamsulosin HCl 0.4 mg 05/13/17 08:30 05/13/17 09:20 Flomax - PO 0.4 mg DAILY@0830 [facility] Administration Torsemide 40 mg 05/13/17 10:00 05/13/17 09:32 Demadex - PO 40 mg DAILY [facility] Administration Trazodone HCl 50 mg 05/12/17 22:00 05/12/17 22:07 Desyrel - PO 50 mg HS [facility] Administration ASSESSMENT/PLAN: B/L PNA vs CHF - HCAP vs Opportunistic (immunosuppressive therapy) -WBC improved -Continue Antibiotics: Zosyn -Redose Vancomycin (vanc level 15) -Stop Zithromax (interaction with tacrolimus) -Pending cultures -Renal consult for tacrolimus levels Visit type - Emergency Visit Emergency Visit: Yes ED Registration Date: 05/12/17 Care time: The patient presented to the Emergency Department on the above date and was hospitalized for further evaluation of their emergent condition. - New Patient This patient is new to me today: No - Critical Care Critical Care patient: No
--- NOTE | 2017-05-13 11:19 | PN ---
Teaching Attending Note Name of Resident: Sunshine Li ATTENDING PHYSICIAN STATEMENT I saw and evaluated the patient. I reviewed the resident's note and discussed the case with the resident. I agree with the resident's findings and plan as documented. SUBJECTIVE: Awake but lethargic Offers no complaints Afebrile WBC improved Cultures pending Vanco level 15 OBJECTIVE: Lethargic Cor S1S2 Few crepitations, bases Abdomen soft, slightly distended non tender trace edema + LE ulcers ASSESSMENT AND PLAN: Bilateral pneumonia v. CHF S/P renal transplant on immunosuppresive therapy CKD Cr improved DM LE ulcers ? Passive hepatic congestion Await c/s Continue zosyn Redose Vancomycin Renal consult ? tacrolimus level
--- NOTE | 2017-05-13 13:02 | PN ---
Teaching Attending Note Name of Resident: Chris Keys ATTENDING PHYSICIAN STATEMENT I saw and evaluated the patient. I reviewed the resident's note and discussed the case with the resident. I agree with the resident's findings and plan as documented. SUBJECTIVE: Pt seen and examined in the ICU. Somnolent but arousable. c/o leg/toe cramping. Denies shortness of breath or chest pain. No fevers recorded. OBJECTIVE: Last Vital Signs Temp Pulse Resp BP Pulse Ox 98.6 F 61 20 157/80 97 05/13/17 10:00 05/13/17 12:00 05/13/17 12:00 05/13/17 12:00 05/13/17 08:29 Intake & Output 05/10/17 05/11/17 05/12/17 05/13/17 23:59 23:59 23:59 23:59 Intake Total 50 Output Total 300 Balance -250 Weight 140 lb 149 lb 1 oz Gen: somnolent but aroussable Neck: +JVD Heart: RRR Lung: bibasilar rales R>L Abd: soft, nontender Ext: no edema CBC, BMP 05/13/17 05:20 05/13/17 05:20 Active Medications Acetaminophen (Tylenol -) 650 mg PO Q6H PRN PRN Reason: FEVER OR PAIN Albuterol/Ipratropium (Duoneb -) 1 amp NEB Q6H PRN PRN Reason: SHORTNESS OF BREATH Aspirin (Asa -) [address] [facility] Last Admin: 05/13/17 09:32 Dose: 81 mg Atorvastatin Calcium (Lipitor -) 20 mg PO [facility] Last Admin: 05/12/17 22:07 Dose: 20 mg Carvedilol (Coreg -) 12.[address] [facility] Last Admin: 05/13/17 09:20 Dose: 12.5 mg Clonidine (Catapres -) 0.[address] [facility] Last Admin: 05/13/17 09:20 Dose: 0.1 mg Clopidogrel Bisulfate (Plavix -) [address] [facility] Last Admin: 05/13/17 09:31 Dose: 75 mg Collagenase (Santyl -) [address] [facility] Last Admin: 05/13/17 09:31 Dose: 1 applic Docusate Sodium (Colace -) 300 mg PO [facility] Last Admin: 05/12/17 22:07 Dose: 300 mg Hydralazine HCl (Apresoline -) [address] [facility] Last Admin: 05/13/17 06:12 Dose: 100 mg Piperacillin Sod/Tazobactam Sod (Zosyn 2.25gm Ivpb (Pre-Docked)) 50 mls @ 100 mls/hr IVPB Q8H-IV [facility] PRN Reason: Protocol Last Admin: 05/13/17 09:21 Dose: 100 mls/hr Insulin Aspart (Novolog Vial Sliding Scale -) [address] [facility] PRN Reason: Protocol Last Admin: 05/13/17 11:30 Dose: Not Given Insulin Detemir (Levemir Vial) [address] [facility] Last Admin: 05/12/17 22:16 Dose: Not Given Isosorbide Dinitrate (Isoditrate Er) [address] [facility] Last Admin: 05/13/17 09:39 Dose: 40 mg Mirtazapine (Remeron -) [address] [facility] Last Admin: 05/12/17 22:07 Dose: 15 mg Mycophenolate Sodium (Mycophenolic Acid) [address] [facility] Last Admin: 05/13/17 09:40 Dose: 360 mg Oxycodone HCl (Roxicodone -) 5 mg PO Q6H PRN PRN Reason: PAIN Prednisone (Deltasone -) [address] [facility] Last Admin: 05/13/17 09:40 Dose: 5 mg Senna (Senna -) [address] [facility] Last Admin: 05/12/17 22:07 Dose: 2 tab Sodium Bicarbonate (Sodium Bicarbonate -) [address] [facility] Last Admin: 05/13/17 09:20 Dose: 650 mg Tamsulosin HCl (Flomax -) 0.4 mg PO DAILY@0830 [facility] Last Admin: 05/13/17 09:20 Dose: 0.4 mg Torsemide (Demadex -) [address] [facility] Last Admin: 05/13/17 09:32 Dose: 40 mg Trazodone HCl (Desyrel -) [address] [facility] Last Admin: 05/12/17 22:07 Dose: 50 mg ASSESSMENT AND PLAN: Acute Hypoxic Respiratory Failure Acute on Chronic Systolic and Diastolic Heart Failure Pulmonary HTN ESRD s/p renal transplant +Troponins likely from above r/o Pneumonia - IV lasix - monitor urine output, creatinine - trend troponins - echocardiogram - on empiric antibiotics - f/u cultures - O2 to keep SpO2 >90% - check ABG - monitor CXR with diuresis - aspiration precautions - DVT/GI prophylaxis critical care time spent in reviewing chart, evaluating patient and formulating plan 35 min
--- NOTE | 2017-05-13 14:26 | CON.CARD ---
Consult Consult Specialty:: Cardiology Reason for Consultation:: Dyspnea - History of Present Illness History of Present Illness: 76 M with ESRD sp Rtxp, ischemic CM sp AICD, multiple heart failure admissions ( last 03/2017 at [facility]) Last Echocardiogram 01/2017 EF 25% with severe RV dysfunction. Transferred from the custodial yesterday with dyspnea, hypoxia and hypoglycemia. CXR showed pulmonary vascular congestion and possibly PNA. Pt recived IV diuretic and emperic Abx. halfway meds include: Torsemide 60mg BID; Hydralazine; Imdur; Coreg 25mg BID and Clonidine He is currently comfortable. - History Source History Provided By: Patient, Medical Record - Past Medical History Cardio/Vascular: Yes: CAD, CHF, HTN Renal/: Yes: Renal Failure (S/P renal transplant), Hemodialysis Endocrine: Yes: Diabetes Mellitus - Past Surgical History Past Surgical History: Yes: AV Fistula/Graft (Left), CABG, Kidney Transplant ( Left) - Alcohol/Substance Use Hx Alcohol Use: No History of Substance Use: reports: Marijuana Date of Last Use: 02/20/83 - Smoking History Smoking history: Former smoker Have you smoked in the past 12 months: No If you are a former smoker, when did you quit?: 12 years - Social History Usual Living Arrangement: Jail ADL: Independent Occupation: Retired- construction driller History of Recent Travel: No Home Medications - Allergies Allergies/Adverse Reactions: Allergies Allergy/AdvReac Type Severity Reaction Status Date / Time No Known Allergies Allergy Verified 03/04/15 23:02 - Home Medications Home Medications: Ambulatory Orders Aspirin [Aspirin EC] 81 mg PO DAILY 03/05/15 Clonidine HCl 0.1 mg PO Q12H 03/05/15 Insulin (Levemir) [Levemir Flexpen -] 12 unit SQ HS 03/05/15 Prednisone [Deltasone -] 5 mg PO DAILY 03/05/15 Tacrolimus 5 mg PO BID 03/05/15 Tamsulosin HCl [Flomax -] 0.4 mg PO HS 03/05/15 Acetaminophen [Pain Relief] 650 mg PO Q6H PRN 05/12/17 Albuterol 0.083% Nebulizer Gisele [Ventolin 0.083% Nebulizer Soln -] 1 amp NEB BID 05/12/17 Atorvastatin Ca [Lipitor] 20 mg PO HS 05/12/17 Bacitracin - [Bacitracin Topical Ointment -] 1 applic TP [facility] 05/12/17 Carvedilol [Coreg] 25 mg PO Q12H 05/12/17 Clopidogrel Bisulfate [Plavix -] 75 mg PO DAILY 05/12/17 Collagenase Clostridium Hist. [Santyl -] 1 applic TP DAILY 05/12/17 Ferrous Sulfate 325 mg PO DAILY 05/12/17 Glucagon,Human Recombinant [Glucagon Emergency Kit] 1 mg IJ ASDIR 05/12/17 Hydralazine HCl 100 mg PO TID 05/12/17 Insulin Aspart [Novolog] 0 unit SQ AC PRN 05/12/17 Isosorbide Dinitrate [Dilatrate-Sr -] 40 mg PO TID 05/12/17 Lidocaine 1 each TP DAILY 05/12/17 Mirtazapine 15 mg PO HS 05/12/17 Mycophenolate Sodium [Mycophenolic Acid] 360 mg PO BID 05/12/17 Oxycodone HCl 5 mg PO Q6H PRN 05/12/17 Sennosides [Sen-O-Tab] 2 tab PO HS 05/12/17 Sodium Bicarbonate - 650 mg PO TID 05/12/17 Torsemide [Demadex] 60 mg PO BID 05/12/17 Trazodone HCl 50 mg PO HS 05/12/17 Review of Systems - Review of Systems Constitutional: reports: Lethargy, Loss of Appetite Eyes: reports: No Symptoms HENT: reports: No Symptoms Neck: reports: No Symptoms Cardiovascular: reports: Shortness of Breath Respiratory: reports: Cough, SOB Gastrointestinal: reports: No Symptoms Genitourinary: reports: No Symptoms Vital Signs: Vital Signs Temperature 98.6 F 05/13/17 10:00 Pulse Rate 61 05/13/17 12:00 Respiratory Rate 20 05/13/17 12:00 Blood Pressure 157/80 05/13/17 12:00 O2 Sat by Pulse Oximetry (%) 97 05/13/17 08:29 Constitutional: Yes: Calm, Thin HENT: Yes: WNL Neck: Yes: Supple, Trachea Midline Respiratory: Yes: Rales Gastrointestinal: Yes: Normal Bowel Sounds, Soft Cardiovascular: Yes: Regular Rate and Rhythm JVD: Yes Carotid Bruit: No Heart Sounds: Yes: S2 Murmur: No: Systolic Murmur, Diastolic Murmur, Grade 1, Grade 2, Grade 3, Grade 4, Grade 5, Grade 6 Edema: No - Other Data Labs, Other Data: CBC, BMP 05/13/17 05:20 05/13/17 05:20 INR, PTT INR 1.76 (0.82-1.09) H 05/12/17 13:24 Ejection Fraction %: LVEF < 40 % Imaging - Results Chest X-ray: Report Reviewed (CXR from 05/13 shows some improvement in pulmonary venous congestion.) Problem List - Problems (1) Shortness of breath Code(s): R06.02 - SHORTNESS OF BREATH (2) Systolic CHF Code(s): I50.20 - UNSPECIFIED SYSTOLIC (CONGESTIVE) HEART FAILURE (3) HTN (hypertension) Code(s): I10 - ESSENTIAL (PRIMARY) HYPERTENSION Assessment/Plan 76 yo with severe ischemic CM and EF 25%, severe RV dysfunction (prophylactic AICD). Recurrent heart failure admissions. 1. Acute heart failure with reduced EF. 2. CKD 3. possible infection. 4. Mildly elevated TP Suggest: TP elevation likely due to demand mediated ischemia and will be managed medically. Serial TP levels Continue to use diuretics as ordered. Clinically seems improved in the last 24 hours. Continue to treat HTN. WIll raise Coreg dose once adequately diuresed.
[2017-05-13] MEDS ORDERED: FUROSEMIDE 40 MG/4 ML INJECTABLE VIAL IVPUSH ONE (14:38)
--- NOTE | 2017-05-13 14:58 | PN ---
Progress Note, Physician History of Present Illness: no events overnight hemodynamically stable complains of occasional muscle cramps - Current Medication List Current Medications: Active Medications Acetaminophen (Tylenol -) 650 mg PO Q6H PRN PRN Reason: FEVER OR PAIN Albuterol/Ipratropium (Duoneb -) 1 amp NEB Q6H PRN PRN Reason: SHORTNESS OF BREATH Aspirin (Asa -) 81 mg PO DAILY [facility] Last Admin: 05/13/17 09:32 Dose: 81 mg Atorvastatin Calcium (Lipitor -) 20 mg PO HS [facility] Last Admin: 05/12/17 22:07 Dose: 20 mg Carvedilol (Coreg -) 12.5 mg PO BID [facility] Last Admin: 05/13/17 09:20 Dose: 12.5 mg Clonidine (Catapres -) 0.1 mg PO BID [facility] Last Admin: 05/13/17 09:20 Dose: 0.1 mg Clopidogrel Bisulfate (Plavix -) 75 mg PO DAILY [facility] Last Admin: 05/13/17 09:31 Dose: 75 mg Collagenase (Santyl -) 1 applic TP DAILY [facility] Last Admin: 05/13/17 09:31 Dose: 1 applic Docusate Sodium (Colace -) 300 mg PO [facility] Last Admin: 05/12/17 22:07 Dose: 300 mg Hydralazine HCl (Apresoline -) 100 mg PO TID [facility] Last Admin: 05/13/17 13:38 Dose: 100 mg Piperacillin Sod/Tazobactam Sod (Zosyn 2.25gm Ivpb (Pre-Docked)) 50 mls @ 100 mls/hr IVPB Q8H-IV [facility] PRN Reason: Protocol Last Admin: 05/13/17 09:21 Dose: 100 mls/hr Insulin Aspart (Novolog Vial Sliding Scale -) 1 vial SQ ACHS [facility] PRN Reason: Protocol Last Admin: 05/13/17 11:30 Dose: Not Given Insulin Detemir (Levemir Vial) 15 units SQ [facility] Last Admin: 05/12/17 22:16 Dose: Not Given Isosorbide Dinitrate (Isoditrate Er) 40 mg PO BIDISORDIL [facility] Last Admin: 05/13/17 09:39 Dose: 40 mg Mirtazapine (Remeron -) 15 mg PO HS [facility] Last Admin: 05/12/17 22:07 Dose: 15 mg Mycophenolate Sodium (Mycophenolic Acid) 360 mg PO DAILY [facility] Last Admin: 05/13/17 09:40 Dose: 360 mg Oxycodone HCl (Roxicodone -) 5 mg PO Q6H PRN PRN Reason: PAIN Prednisone (Deltasone -) 5 mg PO DAILY [facility] Last Admin: 05/13/17 09:40 Dose: 5 mg Senna (Senna -) 2 tab PO HS [facility] Last Admin: 05/12/17 22:07 Dose: 2 tab Sodium Bicarbonate (Sodium Bicarbonate -) 650 mg PO BID [facility] Last Admin: 05/13/17 09:20 Dose: 650 mg Tamsulosin HCl (Flomax -) 0.4 mg PO DAILY@0830 [facility] Last Admin: 05/13/17 09:20 Dose: 0.4 mg Torsemide (Demadex -) 40 mg PO DAILY [facility] Last Admin: 05/13/17 09:32 Dose: 40 mg Trazodone HCl (Desyrel -) 50 mg PO HS [facility] Last Admin: 05/12/17 22:07 Dose: 50 mg - Objective Vital Signs: Vital Signs Temperature 98.6 F 05/13/17 10:00 Pulse Rate 61 05/13/17 12:00 Respiratory Rate 20 05/13/17 12:00 Blood Pressure 157/80 05/13/17 12:00 O2 Sat by Pulse Oximetry (%) 97 05/13/17 08:29 Constitutional: Yes: No Distress, Other (somnolent but arousable) HENT: Yes: Atraumatic, Normocephalic Neck: Yes: Supple Cardiovascular: Yes: JVD Respiratory: Yes: Rales (bilateral) Gastrointestinal: Yes: Soft. No: Tenderness Edema: No Wound/Incision: Yes: Other (right great toe ulcer draining serous fluid with fibrinous exudate) Labs: CBC, BMP 05/13/17 05:20 05/13/17 05:20 INR, PTT INR 1.76 (0.82-1.09) H 05/12/17 13:24 - ....Imaging Chest X-ray: Report Reviewed, Image Reviewed Ultrasound: Report Reviewed Assessment/Plan 76M with multiple medical problems presents with acute hypoxic respiratory failure acute hypoxic respiratory failure: Improved now on nasal cannula saturating well also could be secondary to acute CHF exacerbation as well continue diuresis with lasix and torsemide continue prednisone f/u ABG to rule out hypercapnea as a cause to somnolence. per son patient has somnolence all the time due to his insmonia at night acute on chronic diastolic heart failure: IV lasix torsemide daily CXR continue isosorbide dinitrate f/u echo continue plavix continue coreg Troponinemia: will continue to trend. likely demand vs heart failure vs respiratory failure continue aspirin and plavix DM: continue long acting insulin sliding scale insulin BGM ACHS ESRD s/p renal transplant: ultrasound duplex show transplanted kidney has functioning blood flow continue mycophenelate supervisor irrigation to contact patient's transplant supervisor irrigation for recommendations will send tacrolimus level and likely restart tacrolimus today. will defer to nephrology continue prednisone ABNER on CKD: unknown baseline creatinine nephrology to speak to transplant supervisor irrigation continue to trend creatinine toe ulcer: santyl per primary team HLD: continue statin BPH: continue flomax Depression: continue trazadone FEN: no IVF no electrolyte issues Renal/diabetic/low sodium diet PPx: SCDs/HSQ no GI PPx PT consult Transfer to telemetry
[2017-05-13 15:03] LABS: ARTERIAL BLD GAS O2 SATURATION 93.6 % (90-98.9); ARTERIAL BLOOD GAS BASE EXCESS 2.7 meq/l (-2-2); ARTERIAL BLOOD GAS HCO3 26.4 meq/L (22-26); ARTERIAL BLOOD GAS pH 7.45 (7.35-7.45)
[2017-05-13 15:05] LABS: ALLENS TEST POSITIVE; ART PUNCT SITE RIGHT RADIAL; LPM/O2% 3L; PT. ON O2? YES; TYPE OF O2 NASAL O2
[2017-05-13 15:06] LABS: ARTERIAL BLOOD GAS PO2 67.6 mmHg (70-100)
--- NOTE | 2017-05-13 16:24 | CONSULT ---
Consult Consult Specialty:: Nephrology Reason for Consultation:: kidney transplant - History of Present Illness Chief Complaint: sent in for hypoglycemia History of Present Illness: Pt is a 76 year old male with pmhx of kidney transplant 3 years ago, CHF, DM, HTN, CABG, and cholesterol who was sent in from the [place] for hypoglycemia. He had decreased PO intake and took his regular dose of insulin. He was also found to have SOB and was found to be hypoxic. He was admitted to the ICU and given diuretics for acute CHF. He is a very poor historian. He denies fevers or chills. He does not know his baseline creatinine. He denies dysuria or hematuria. - History Source History Provided By: Patient, Medical Record - Past Medical History Cardio/Vascular: Yes: CAD, CHF, HTN Renal/: Yes: Renal Failure (S/P renal transplant), Other (kidney transplant) Endocrine: Yes: Diabetes Mellitus - Past Surgical History Past Surgical History: Yes: AV Fistula/Graft (Left), CABG, Kidney Transplant ( Left) - Alcohol/Substance Use Hx Alcohol Use: No History of Substance Use: reports: Marijuana Date of Last Use: 02/20/83 - Smoking History Smoking history: Former smoker Have you smoked in the past 12 months: No If you are a former smoker, when did you quit?: 12 years - Social History Usual Living Arrangement: Jail ADL: Independent Occupation: Retired- construction project coordinator History of Recent Travel: No Home Medications - Allergies Allergies/Adverse Reactions: Allergies Allergy/AdvReac Type Severity Reaction Status Date / Time No Known Allergies Allergy Verified 03/04/15 23:02 - Home Medications Home Medications: Ambulatory Orders Aspirin [Aspirin EC] 81 mg PO DAILY 03/05/15 Clonidine HCl 0.1 mg PO Q12H 03/05/15 Insulin (Levemir) [Levemir Flexpen -] 12 unit SQ HS 03/05/15 Prednisone [Deltasone -] 5 mg PO DAILY 03/05/15 Tacrolimus 5 mg PO BID 03/05/15 Tamsulosin HCl [Flomax -] 0.4 mg PO HS 03/05/15 Acetaminophen [Pain Relief] 650 mg PO Q6H PRN 05/12/17 Albuterol 0.083% Nebulizer Gisele [Ventolin 0.083% Nebulizer Soln -] 1 amp NEB BID 05/12/17 Atorvastatin Ca [Lipitor] 20 mg PO HS 05/12/17 Bacitracin - [Bacitracin Topical Ointment -] 1 applic TP ASDIR 05/12/17 Carvedilol [Coreg] 25 mg PO Q12H 05/12/17 Clopidogrel Bisulfate [Plavix -] 75 mg PO DAILY 05/12/17 Collagenase Clostridium Hist. [Santyl -] 1 applic TP DAILY 05/12/17 Ferrous Sulfate 325 mg PO DAILY 05/12/17 Glucagon,Human Recombinant [Glucagon Emergency Kit] 1 mg IJ ASDIR 05/12/17 Hydralazine HCl 100 mg PO TID 05/12/17 Insulin Aspart [Novolog] 0 unit SQ AC PRN 05/12/17 Isosorbide Dinitrate [Dilatrate-Sr -] 40 mg PO TID 05/12/17 Lidocaine 1 each TP DAILY 05/12/17 Mirtazapine 15 mg PO HS 05/12/17 Mycophenolate Sodium [Mycophenolic Acid] 360 mg PO BID 05/12/17 Oxycodone HCl 5 mg PO Q6H PRN 05/12/17 Sennosides [Sen-O-Tab] 2 tab PO HS 05/12/17 Sodium Bicarbonate - 650 mg PO TID 05/12/17 Torsemide [Demadex] 60 mg PO BID 05/12/17 Trazodone HCl 50 mg PO HS 05/12/17 Family Disease History - Family Disease History Family History: Unable to Obtain Review of Systems - Review of Systems Constitutional: reports: No Symptoms Eyes: reports: No Symptoms HENT: reports: No Symptoms Neck: reports: No Symptoms Cardiovascular: reports: Shortness of Breath Respiratory: reports: SOB on Exertion Gastrointestinal: reports: No Symptoms Genitourinary: reports: No Symptoms Musculoskeletal: reports: No Symptoms Neurological: reports: No Symptoms Endocrine: reports: No Symptoms Physical Exam Vital Signs: Vital Signs Temperature 98.6 F 05/13/17 14:00 Pulse Rate 60 05/13/17 14:00 Respiratory Rate 20 05/13/17 14:00 Blood Pressure 153/78 05/13/17 14:00 O2 Sat by Pulse Oximetry (%) 97 05/13/17 08:29 Constitutional: Yes: Calm HENT: Yes: Atraumatic Neck: Yes: Supple Cardiovascular: Yes: S1, S2 Respiratory: Yes: On Nasal O2, Rhonchi Gastrointestinal: Yes: Soft Renal/: Yes: Other (graft is soft) Musculoskeletal: Yes: WNL Edema: No Neurological: Yes: Oriented Psychiatric: Yes: Oriented Labs: CBC, BMP 05/13/17 05:20 05/13/17 05:20 Laboratory Tests 03/05/15 03/05/15 03/05/15 01:20 08:20 16:00 WBC Hgb Sodium Potassium Carbon Dioxide Anion Gap BUN Creatinine 1.7 H 1.8 H 1.7 H Urine Color Urine Appearance Urine pH Ur Specific [place] Urine Protein Urine Glucose (UA) Urine Ketones Urine Blood Urine Nitrite Urine Bilirubin Urine Urobilinogen Ur Leukocyte Esterase Random Vancomycin Tacrolimus 03/06/15 03/07/15 03/08/15 06:30 06:30 06:00 WBC Hgb Sodium Potassium Carbon Dioxide Anion Gap BUN Creatinine 1.3 D 1.6 H D 1.2 D Urine Color Urine Appearance Urine pH Ur Specific [place] Urine Protein Urine Glucose (UA) Urine Ketones Urine Blood Urine Nitrite Urine Bilirubin Urine Urobilinogen Ur Leukocyte Esterase Random Vancomycin Tacrolimus 05/12/17 05/12/17 05/12/17 11:33 13:24 13:46 WBC 12.1 H D Hgb Sodium Potassium Carbon Dioxide Anion Gap BUN Creatinine 2.3 H D Urine Color Yellow Urine Appearance Clear Urine pH 5.0 Ur Specific [place] 1.010 Urine Protein Negative Urine Glucose (UA) Negative Urine Ketones Negative Urine Blood Negative Urine Nitrite Negative Urine Bilirubin Negative Urine Urobilinogen 2.0 Ur Leukocyte Esterase Negative Random Vancomycin Tacrolimus 05/13/17 05/13/17 05/13/17 05:20 05:20 05:20 WBC 9.2 Hgb 12.6 Sodium 140 Potassium 3.7 Carbon Dioxide 29 D Anion Gap 12 BUN 84 H Creatinine 2.2 H Urine Color Urine Appearance Urine pH Ur Specific [place] Urine Protein Urine Glucose (UA) Urine Ketones Urine Blood Urine Nitrite Urine Bilirubin Urine Urobilinogen Ur Leukocyte Esterase Random Vancomycin 15.412 Tacrolimus 05/13/17 15:45 WBC Hgb Sodium Potassium Carbon Dioxide Anion Gap BUN Creatinine Urine Color Urine Appearance Urine pH Ur Specific [place] Urine Protein Urine Glucose (UA) Urine Ketones Urine Blood Urine Nitrite Urine Bilirubin Urine Urobilinogen Ur Leukocyte Esterase Random Vancomycin Tacrolimus Pending Imaging - Results Chest X-ray: Report Reviewed Problem List - Problems (1) Systolic CHF Code(s): I50.20 - UNSPECIFIED SYSTOLIC (CONGESTIVE) HEART FAILURE (2) Diabetes mellitus Code(s): E11.9 - TYPE 2 DIABETES MELLITUS WITHOUT COMPLICATIONS (3) Kidney transplant recipient Code(s): Z94.0 - KIDNEY TRANSPLANT STATUS Assessment/Plan Current Medications Generic Name Dose Route Start Last Admin Trade Name Freq PRN Reason Stop Dose Admin Acetaminophen 650 mg 05/12/17 20:34 Tylenol - PO Q6H PRN FEVER OR PAIN Albuterol/Ipratropium 1 amp 05/12/17 20:34 Duoneb - NEB Q6H PRN SHORTNESS OF BREATH Aspirin 81 mg 05/13/17 10:00 05/13/17 09:32 Asa - PO 81 mg DAILY [facility] Administration Atorvastatin Calcium 20 mg 05/12/17 22:00 05/12/17 22:07 Lipitor - PO 20 mg HS [facility] Administration Carvedilol 12.5 mg 05/12/17 22:00 05/13/17 09:20 Coreg - PO 12.5 mg BID [facility] Administration Clonidine 0.1 mg 05/12/17 22:00 05/13/17 09:20 Catapres - PO 0.1 mg BID [facility] Administration Clopidogrel Bisulfate 75 mg 05/13/17 10:00 05/13/17 09:31 Plavix - PO 75 mg DAILY [facility] Administration Collagenase 1 applic 05/13/17 10:00 05/13/17 09:31 Santyl - TP 1 applic DAILY [facility] Administration Docusate Sodium 300 mg 05/12/17 22:00 05/12/17 22:07 Colace - PO 300 mg HS [facility] Administration Hydralazine HCl 100 mg 05/12/17 22:00 05/13/17 13:38 Apresoline - PO 100 mg TID [facility] Administration Piperacillin Sod/Tazobactam Sod 50 mls @ 100 mls/hr 05/12/17 18:37 05/13/17 09: 21 Zosyn 2.25gm Ivpb (Pre-Docked) IVPB 100 mls/hr Q8H-IV [facility] Administration Protocol Insulin Aspart 1 vial 05/12/17 22:00 05/13/17 11:30 Novolog Vial Sliding Scale - SQ Not Given ACHS [facility] Protocol Insulin Detemir 15 units 05/12/17 22:00 05/12/17 22:16 Levemir Vial SQ Not Given HS [facility] Isosorbide Dinitrate 40 mg 05/13/17 10:00 05/13/17 09:39 Isoditrate Er PO 40 mg BIDISORDIL [facility] Administration Mirtazapine 15 mg 05/12/17 22:00 05/12/17 22:07 Remeron - PO 15 mg HS [facility] Administration Mycophenolate Sodium 360 mg 05/13/17 10:00 05/13/17 09:40 Mycophenolic Acid PO 360 mg DAILY [facility] Administration Oxycodone HCl 5 mg 05/12/17 20:34 Roxicodone - PO Q6H PRN PAIN Prednisone 5 mg 05/13/17 10:00 05/13/17 09:40 Deltasone - PO 5 mg DAILY [facility] Administration Senna 2 tab 05/12/17 22:00 05/12/17 22:07 Senna - PO 2 tab HS [facility] Administration Sodium Bicarbonate 650 mg 05/12/17 22:00 05/13/17 09:20 Sodium Bicarbonate - PO 650 mg BID [facility] Administration Tamsulosin HCl 0.4 mg 05/13/17 08:30 05/13/17 09:20 Flomax - PO 0.4 mg DAILY@0830 [facility] Administration Torsemide 40 mg 05/13/17 10:00 05/13/17 09:32 Demadex - PO 40 mg DAILY [facility] Administration Trazodone HCl 50 mg 05/12/17 22:00 05/12/17 22:07 Desyrel - PO 50 mg HS [facility] Administration Impression 1. kidney transplant 2. CKD with baseline fixed income manager of 2.1 3. CHF 4. DM 5. HTN 6. chol 7. CAD 8. non compliance 9. Plan - called transplant center and discussed care with team - medication doses are noted below, discussed with ICU team - baseline fixed income manager 2.1 - tacrolimus 1 mg bid, mycofenylate 360 BID, predisone 5 mg - cont diuretics - repeat labs in am - will follow Dr Gibbs
[2017-05-13 17:10] LABS: TROPONIN I 0.1 ng/ml (0.00-0.05)
--- NOTE | 2017-05-13 17:16 | HP ---
Admitting History and Physical - Primary Care Physician PCP: Rivka Patel - Admission Chief Complaint: AMS/RESP DISTRESS/SEPSIS History of Present Illness: The patient is a 76 year old male,MARGI brown with a significant past medical history of renal failure s/p left sided kidney transplant, triple bypass surgery, HTN, HLD, IDDM, CHF, who presents to the emergency department with hypoglycemia. EMS reports the patient having a finger stick of 31 earlier today with a return of his blood sugar to 247 after dextrose. Per EMS patient did not eat this morning or last night, but had his usual dose of insulin. Patients finger stick was 247 in the ED. He arrives with chief complaints of SOB but patient is a poor historian and can not elaborate on how long he has had SOB. On arrival to ED, O2 sat on RA was 85%, corrected to 96% on 3L. He denies any recent fevers, chills, headache or dizziness. He denies any recent nausea, vomit, diarrhea or constipation. He denies any recent chest pain. He denies any recent dysuria, frequency, urgency or hematuria. History Source: Medical Record, Transfer Record Limitations to Obtaining History: Clinical Condition, Poor Historian, Uncooperative - Past Medical History Cardiovascular: Yes: CAD, CHF, HTN Renal/: Yes: Renal Failure (S/P renal transplant), Other (kidney transplant) Endocrine: Yes: Diabetes Mellitus - Past Surgical History Past Surgical History: Yes: AV Fistula/Graft (Left), CABG, Kidney Transplant ( Left) - Smoking History Smoking history: Former smoker Have you smoked in the past 12 months: No If you are a former smoker, when did you quit?: 12 years - Alcohol/Substance Use Hx Alcohol Use: No History of Substance Use: reports: Marijuana Date of Last Use: 02/20/83 - Social History ADL: Independent Occupation: Retired- construction helper History of Recent Travel: No Home Medications - Allergies Allergies/Adverse Reactions: Allergies Allergy/AdvReac Type Severity Reaction Status Date / Time No Known Allergies Allergy Verified 03/04/15 23:02 - Home Medications Home Medications: Ambulatory Orders Aspirin [Aspirin EC] 81 mg PO DAILY 03/05/15 Clonidine HCl 0.1 mg PO Q12H 03/05/15 Insulin (Levemir) [Levemir Flexpen -] 12 unit SQ HS 03/05/15 Prednisone [Deltasone -] 5 mg PO DAILY 03/05/15 Tacrolimus 5 mg PO BID 03/05/15 Tamsulosin HCl [Flomax -] 0.4 mg PO HS 03/05/15 Acetaminophen [Pain Relief] 650 mg PO Q6H PRN 05/12/17 Albuterol 0.083% Nebulizer Gisele [Ventolin 0.083% Nebulizer Soln -] 1 amp NEB BID 05/12/17 Atorvastatin Ca [Lipitor] 20 mg PO HS 05/12/17 Bacitracin - [Bacitracin Topical Ointment -] 1 applic TP ASDIR 05/12/17 Carvedilol [Coreg] 25 mg PO Q12H 05/12/17 Clopidogrel Bisulfate [Plavix -] 75 mg PO DAILY 05/12/17 Collagenase Clostridium Hist. [Santyl -] 1 applic TP DAILY 05/12/17 Ferrous Sulfate 325 mg PO DAILY 05/12/17 Glucagon,Human Recombinant [Glucagon Emergency Kit] 1 mg IJ ASDIR 05/12/17 Hydralazine HCl 100 mg PO TID 05/12/17 Insulin Aspart [Novolog] 0 unit SQ AC PRN 05/12/17 Isosorbide Dinitrate [Dilatrate-Sr -] 40 mg PO TID 05/12/17 Lidocaine 1 each TP DAILY 05/12/17 Mirtazapine 15 mg PO HS 05/12/17 Mycophenolate Sodium [Mycophenolic Acid] 360 mg PO BID 05/12/17 Oxycodone HCl 5 mg PO Q6H PRN 05/12/17 Sennosides [Sen-O-Tab] 2 tab PO HS 05/12/17 Sodium Bicarbonate - 650 mg PO TID 05/12/17 Torsemide [Demadex] 60 mg PO BID 05/12/17 Trazodone HCl 50 mg PO HS 05/12/17 Review of Systems - Review of Systems Constitutional: reports: Lethargy, Loss of Appetite, Weakness Eyes: reports: No Symptoms HENT: reports: No Symptoms Neck: reports: No Symptoms Cardiovascular: reports: No Symptoms Respiratory: reports: Cough, SOB Gastrointestinal: reports: No Symptoms Genitourinary: reports: Other Musculoskeletal: reports: Muscle Weakness Integumentary: reports: No Symptoms Neurological: reports: Confusion, Pre-Existing Deficit Endocrine: reports: No Symptoms, Increased Thirst Hematology/Lymphatic: reports: No Symptoms Physical Examination Vital Signs: Vital Signs Temperature 98.6 F 05/13/17 14:00 Pulse Rate 60 05/13/17 14:00 Respiratory Rate 20 05/13/17 14:00 Blood Pressure 153/78 05/13/17 14:00 O2 Sat by Pulse Oximetry (%) 97 05/13/17 08:29 Findings/Remarks: uncooperative with history, able to read ER note Constitutional: Yes: Moderate Distress Eyes: Yes: WNL HENT: Yes: WNL Neck: Yes: WNL Cardiovascular: Yes: WNL Respiratory: Yes: CTA Bilaterally, On Nasal O2 Gastrointestinal: Yes: WNL Renal/: Yes: Other Extremities: Yes: WNL Edema: No Peripheral Pulses WNL: Yes Integumentary: Yes: Other Wound/Incision: Yes: Clean/Dry Neurological: Yes: Pre-Existing Deficit ...Motor Strength: LLE, RLE Psychiatric: Yes: Agitated Labs: CBC, BMP 05/13/17 05:20 05/13/17 05:20 Imaging - Results Chest X-ray: Report Reviewed Problem List - Problems (1) Hepatic congestion Code(s): K76.1 - CHRONIC PASSIVE CONGESTION OF LIVER (2) Kidney transplant recipient Code(s): Z94.0 - KIDNEY TRANSPLANT STATUS (3) Shortness of breath Code(s): R06.02 - SHORTNESS OF BREATH (4) Systolic CHF Code(s): I50.20 - UNSPECIFIED SYSTOLIC (CONGESTIVE) HEART FAILURE (5) Diabetes mellitus Code(s): E11.9 - TYPE 2 DIABETES MELLITUS WITHOUT COMPLICATIONS (6) HTN (hypertension) Code(s): I10 - ESSENTIAL (PRIMARY) HYPERTENSION (7) Hyperlipidemia Code(s): E78.5 - HYPERLIPIDEMIA, UNSPECIFIED (8) Renal failure, chronic Code(s): N18.9 - CHRONIC KIDNEY DISEASE, UNSPECIFIED (9) Metabolic encephalopathy Code(s): G93.41 - METABOLIC ENCEPHALOPATHY (10) Sepsis Code(s): A41.9 - SEPSIS, UNSPECIFIED ORGANISM Assessment/Plan iv abx neuro eval cultures pending renal tx f/u nephrology icu for bp monitoring id consult check lactic acid level
[2017-05-13] MEDS ORDERED: ALBUTEROL SO4 2.5/IPRATROPIUM 0.5 INH SOL 3 ML VIAL.NEB. NEB PRN (19:24)
[2017-05-13] MEDS ORDERED: BACITRACIN 15 GM TUBE TOPICAL OINTMENT TP SCH (22:00)
[2017-05-13] MEDS: DOCUSATE SODIUM 100 MG CAPSULE (FP) PO SCH (22:00)
[2017-05-13] MEDS: ATORVASTATIN CA 20 MG TABLET (FP) PO SCH (22:01)
[2017-05-13] MEDS: MYCOPHENOLATE SODIUM 360 MG TABLET.DR PO SCH (22:01)
[2017-05-13] MEDS: traZODone HCL 50 MG TABLET (FP) PO SCH (22:01)
[2017-05-13] MEDS: SENNOSIDES 8.6MG TABLET (FP) PO SCH (22:02)
[2017-05-13] MEDS: MIRTAZAPINE 15 MG TABLET (FP) PO SCH (22:02)
[2017-05-13] MEDS: INSULIN DETEMIR 100 UNITS/ML MDV SQ SCH (22:03)
[2017-05-14 07:28] LABS: ACTIVATED PTT 31.9 SECONDS (26.9-34.4); INR 1.36 (0.82-1.09); MCH 24.2 pg (25.7-33.7); MCHC 31.3 g/dl (32.0-35.9); MEAN CELL VOLUME 77.3 fl (80-96); MEAN PLT VOLUME 10.7 fl (7.5-11.1); PLATELET COUNT 83 K/MM3 (134-434); PROTHROMBIN TIME (PATIENT) 15.1 SEC (9.98-11.88); WHITE BLOOD COUNT 8.3 K/mm3 (4.0-10.0)
[2017-05-14 07:29] LABS: TROPONIN I 0.09 ng/ml (0.00-0.05)
[2017-05-14 07:38] LABS: ALBUMIN 3.3 g/dl (3.4-5.0); ALK PHOS 201 U/L (45-117); ANION GAP 11 (8-16); BILIRUBIN,TOTAL 1.7 mg/dL (0.2-1.0); CALCIUM 9.4 mg/dL (8.5-10.1); CO2 26 mmol/L (21-32); CREATININE 2.2 mg/dL (0.7-1.3); GLUCOSE,RANDOM 71 mg/dL (74-106); MAGNESIUM 2.4 mg/dL (1.8-2.4); PHOSPHOROUS 3.9 mg/dL (2.5-4.9); SGOT/AST 26 U/L (15-37); SGPT/ALT 25 U/L (12-78); TOT PROT 6.8 g/dl (6.4-8.2)
[2017-05-14] MEDS ORDERED: PT OWN MED DRAWER 7, Y5N ONE ×4 (08:36→21:19)
[2017-05-14] MEDS: TAMSULOSIN HCL 0.4 MG CAP.ER.24H (FP) PO SCH (09:03)
[2017-05-14] MEDS: PIPERACILLIN/TAZOB 2.25 GM 50 ML IVPB SCH ×2 (09:04→17:08)
[2017-05-14] MEDS: ASPIRIN 81 MG CHEWABLE TABLETS PO SCH (09:05)
[2017-05-14] MEDS: cloNIDine HCL 0.1 MG TABLET PO SCH ×2 (09:05→21:36)
[2017-05-14] MEDS: CARVEDILOL 12.5 MG TABLET (FP) PO SCH ×2 (09:06→21:35)
[2017-05-14] MEDS: TORSEMIDE 20 MG TABLET (FP) PO SCH (09:18)
[2017-05-14] MEDS: CLOPIDOGREL BISULFATE 75 MG TABLET (FP) PO SCH (09:18)
[2017-05-14] MEDS: COLLAGENASE CLOSTRIDIUM HIST. 30 GRAMS TUBE TP SCH (11:03)
[2017-05-14] MEDS: oxyCODONE HCL 5 MG TABLET PO PRN ×2 (11:22→20:05)
[2017-05-14] MEDS: ACETAMINOPHEN 325 MG TABLET (FP) PO PRN ×2 (11:23→20:06)
[2017-05-14] MEDS: predniSONE 5 MG TABLET (UD) PO SCH (11:27)
[2017-05-14] MEDS: ISOSORBIDE DINITRATE 40 MG PO SCH (11:27)
--- NOTE | 2017-05-14 11:30 | PN ---
Progress Note (short form) - Note Progress Note: PULMONARY/CCM Pt seen and examined in the ICU. Denies shortness of breath or chest pain. One set of blood cultures growing gram positive cocci in cluster. No fevers recorded. Last Vital Signs Temp Pulse Resp BP Pulse Ox 98.2 F 54 L 18 145/84 100 05/13/17 23:53 05/14/17 09:45 05/14/17 09:45 05/14/17 09:45 05/14/17 09:00 Intake & Output 05/11/17 05/12/17 05/13/17 05/14/17 23:59 23:59 23:59 23:59 Intake Total 600 Output Total 1600 Balance -1000 Weight 140 lb 149 lb 1 oz Gen: less tachypneic Heart: RRR Lung: bibasilar rales Abd: soft, nontender Ext: no edema CBC, BMP 05/14/17 06:00 05/14/17 05:00 Active Medications Acetaminophen (Tylenol -) 650 mg PO Q6H PRN PRN Reason: FEVER OR PAIN Last Admin: 05/14/17 11:23 Dose: 650 mg Albuterol/Ipratropium (Duoneb -) 1 amp NEB Q6H PRN PRN Reason: SHORTNESS OF BREATH Aspirin (Asa -) 81 mg PO DAILY [facility] Last Admin: 05/14/17 09:05 Dose: 81 mg Atorvastatin Calcium (Lipitor -) 20 mg PO HS [facility] Last Admin: 05/13/17 22:01 Dose: 20 mg Bacitracin/Polymyxin B Sulfate (Polysporin Ointment -) 1 applic TP DAILY [facility] Carvedilol (Coreg -) 12.5 mg PO BID [facility] Last Admin: 05/14/17 09:06 Dose: 12.5 mg Clonidine (Catapres -) 0.1 mg PO BID [facility] Last Admin: 05/14/17 09:05 Dose: 0.1 mg Clopidogrel Bisulfate (Plavix -) 75 mg PO DAILY [facility] Last Admin: 05/14/17 09:18 Dose: 75 mg Collagenase (Santyl -) 1 applic TP DAILY [facility] Last Admin: 05/14/17 11:03 Dose: 1 applic Docusate Sodium (Colace -) 300 mg PO [facility] Last Admin: 05/13/17 22:00 Dose: 300 mg Hydralazine HCl (Apresoline -) 100 mg PO TID [facility] Last Admin: 05/13/17 22:00 Dose: 100 mg Piperacillin Sod/Tazobactam Sod (Zosyn 2.25gm Ivpb (Pre-Docked)) 50 mls @ 100 mls/hr IVPB Q8H-IV [facility] PRN Reason: Protocol Last Admin: 05/14/17 09:04 Dose: 100 mls/hr Insulin Aspart (Novolog Vial Sliding Scale -) 1 vial SQ ACHS [facility] PRN Reason: Protocol Last Admin: 05/13/17 22:02 Dose: 6 units Insulin Detemir (Levemir Vial) 15 units SQ [facility] Last Admin: 05/13/17 22:03 Dose: 15 units Isosorbide Dinitrate (Isoditrate Er) 40 mg PO BIDISORDIL [facility] Last Admin: 05/14/17 11:27 Dose: 40 mg Mirtazapine (Remeron -) 15 mg PO HS [facility] Last Admin: 05/13/17 22:02 Dose: 15 mg Mycophenolate Sodium (Mycophenolic Acid) 360 mg PO BID [facility] Last Admin: 05/13/17 22:01 Dose: 360 mg Non-Formulary Medication (Patient's Own Med) 1 each PO BID [facility] Oxycodone HCl (Roxicodone -) 5 mg PO Q6H PRN PRN Reason: PAIN Last Admin: 05/14/17 11:22 Dose: 5 mg Prednisone (Deltasone -) 5 mg PO DAILY [facility] Last Admin: 05/14/17 11:27 Dose: 5 mg Senna (Senna -) 2 tab PO [facility] Last Admin: 05/13/17 22:02 Dose: 2 tab Tamsulosin HCl (Flomax -) 0.4 mg PO DAILY@0830 [facility] Last Admin: 05/14/17 09:03 Dose: 0.4 mg Torsemide (Demadex -) 40 mg PO DAILY [facility] Last Admin: 05/14/17 09:18 Dose: 40 mg Trazodone HCl (Desyrel -) 50 mg PO [facility] Last Admin: 05/13/17 22:01 Dose: 50 mg A/P Acute Hypoxic Respiratory Failure improved Acute on Chronic Systolic and Diastolic Heart Failure Pulmonary HTN ESRD s/p renal transplant +Troponins likely from above r/o Pneumonia - continue torsemide - monitor urine output, creatinine - echocardiogram - continue antibiotics - f/u cultures - O2 to keep SpO2 >90% - monitor CXR with diuresis - aspiration precautions - DVT/GI prophylaxis
[2017-05-14] MEDS: INSULIN SLIDING SCALE (NOVOLOG) 1 VIAL SQ SCH ×3 (11:39→21:37)
--- NOTE | 2017-05-14 12:57 | PN ---
Progress Note, Physician History of Present Illness: Pt seen and examined at bedside. He is awake and appears comfortable. He feels his breathing is improved. - Current Medication List Current Medications: Active Medications Acetaminophen (Tylenol -) 650 mg PO Q6H PRN PRN Reason: FEVER OR PAIN Last Admin: 05/14/17 11:23 Dose: 650 mg Albuterol/Ipratropium (Duoneb -) 1 amp NEB Q6H PRN PRN Reason: SHORTNESS OF BREATH Aspirin (Asa -) 81 mg PO DAILY [facility] Last Admin: 05/14/17 09:05 Dose: 81 mg Atorvastatin Calcium (Lipitor -) 20 mg PO HS [facility] Last Admin: 05/13/17 22:01 Dose: 20 mg Bacitracin/Polymyxin B Sulfate (Polysporin Ointment -) 1 applic TP DAILY [facility] Carvedilol (Coreg -) 12.5 mg PO BID [facility] Last Admin: 05/14/17 09:06 Dose: 12.5 mg Clonidine (Catapres -) 0.1 mg PO BID [facility] Last Admin: 05/14/17 09:05 Dose: 0.1 mg Clopidogrel Bisulfate (Plavix -) 75 mg PO DAILY [facility] Last Admin: 05/14/17 09:18 Dose: 75 mg Collagenase (Santyl -) 1 applic TP DAILY [facility] Last Admin: 05/14/17 11:03 Dose: 1 applic Docusate Sodium (Colace -) 300 mg PO HS [facility] Last Admin: 05/13/17 22:00 Dose: 300 mg Hydralazine HCl (Apresoline -) 100 mg PO TID [facility] Last Admin: 05/13/17 22:00 Dose: 100 mg Piperacillin Sod/Tazobactam Sod (Zosyn 2.25gm Ivpb (Pre-Docked)) 50 mls @ 100 mls/hr IVPB Q8H-IV [facility] PRN Reason: Protocol Last Admin: 05/14/17 09:04 Dose: 100 mls/hr Insulin Aspart (Novolog Vial Sliding Scale -) 1 vial SQ ACHS [facility] PRN Reason: Protocol Last Admin: 05/14/17 11:39 Dose: Not Given Insulin Detemir (Levemir Vial) 15 units SQ HS [facility] Last Admin: 05/13/17 22:03 Dose: 15 units Isosorbide Dinitrate (Isoditrate Er) 40 mg PO BIDISORDIL [facility] Last Admin: 05/14/17 11:27 Dose: 40 mg Mirtazapine (Remeron -) 15 mg PO HS [facility] Last Admin: 05/13/17 22:02 Dose: 15 mg Mycophenolate Sodium (Mycophenolic Acid) 360 mg PO BID [facility] Last Admin: 05/13/17 22:01 Dose: 360 mg Non-Formulary Medication (Patient's Own Med) 1 each PO BID [facility] Oxycodone HCl (Roxicodone -) 5 mg PO Q6H PRN PRN Reason: PAIN Last Admin: 05/14/17 11:22 Dose: 5 mg Prednisone (Deltasone -) 5 mg PO DAILY [facility] Last Admin: 05/14/17 11:27 Dose: 5 mg Senna (Senna -) 2 tab PO [facility] Last Admin: 05/13/17 22:02 Dose: 2 tab Tamsulosin HCl (Flomax -) 0.4 mg PO DAILY@0830 [facility] Last Admin: 05/14/17 09:03 Dose: 0.4 mg Torsemide (Demadex -) 40 mg PO DAILY [facility] Last Admin: 05/14/17 09:18 Dose: 40 mg Trazodone HCl (Desyrel -) 50 mg PO [facility] Last Admin: 05/13/17 22:01 Dose: 50 mg - Objective Vital Signs: Vital Signs Temperature 98.2 F 05/13/17 23:53 Pulse Rate 54 L 05/14/17 09:45 Respiratory Rate 18 05/14/17 09:45 Blood Pressure 145/84 05/14/17 09:45 O2 Sat by Pulse Oximetry (%) 100 05/14/17 09:00 Constitutional: Yes: Calm Eyes: Yes: Conjunctiva Clear HENT: Yes: Atraumatic Neck: Yes: Supple Cardiovascular: Yes: S1, S2 Respiratory: Yes: On Nasal O2 Gastrointestinal: Yes: Soft Genitourinary: Yes: Other (graft soft) Edema: No Neurological: Yes: Oriented Psychiatric: Yes: Oriented Labs: CBC, BMP 05/14/17 06:00 05/14/17 05:00 INR, PTT INR 1.36 (0.82-1.09) H 05/14/17 06:00 Problem List - Problems (1) Systolic CHF Code(s): I50.20 - UNSPECIFIED SYSTOLIC (CONGESTIVE) HEART FAILURE (2) Diabetes mellitus Code(s): E11.9 - TYPE 2 DIABETES MELLITUS WITHOUT COMPLICATIONS (3) Kidney transplant recipient Code(s): Z94.0 - KIDNEY TRANSPLANT STATUS Assessment/Plan Current Medications Generic Name Dose Route Start Last Admin Trade Name Freq PRN Reason Stop Dose Admin Acetaminophen 650 mg 05/13/17 19:24 05/14/17 11:23 Tylenol - PO 650 mg Q6H PRN Administration FEVER OR PAIN Albuterol/Ipratropium 1 amp 05/13/17 19:24 Duoneb - NEB Q6H PRN SHORTNESS OF BREATH Aspirin 81 mg 05/14/17 10:00 05/14/17 09:05 Asa - PO 81 mg DAILY [facility] Administration Atorvastatin Calcium 20 mg 05/13/17 22:00 05/13/17 22:01 Lipitor - PO 20 mg HS [facility] Administration Bacitracin/Polymyxin B Sulfate 1 applic 05/14/17 12:00 Polysporin Ointment - TP DAILY [facility] Carvedilol 12.5 mg 05/13/17 22:00 05/14/17 09:06 Coreg - PO 12.5 mg BID [facility] Administration Clonidine 0.1 mg 05/13/17 22:00 05/14/17 09:05 Catapres - PO 0.1 mg BID [facility] Administration Clopidogrel Bisulfate 75 mg 05/14/17 10:00 05/14/17 09:18 Plavix - PO 75 mg DAILY [facility] Administration Collagenase 1 applic 05/14/17 10:00 05/14/17 11:03 Santyl - TP 1 applic DAILY [facility] Administration Docusate Sodium 300 mg 05/13/17 22:00 05/13/17 22:00 Colace - PO 300 mg HS [facility] Administration Hydralazine HCl 100 mg 05/13/17 22:00 05/13/17 22:00 Apresoline - PO 100 mg TID [facility] Administration Piperacillin Sod/Tazobactam Sod 50 mls @ 100 mls/hr 05/14/17 02:00 05/14/17 09: 04 Zosyn 2.25gm Ivpb (Pre-Docked) IVPB 100 mls/hr Q8H-IV [facility] Administration Protocol Insulin Aspart 1 vial 05/13/17 22:00 05/14/17 11:39 Novolog Vial Sliding Scale - SQ Not Given ACHS [facility] Protocol Insulin Detemir 15 units 08/22/17 22:00 05/13/17 22:03 Levemir Vial SQ 15 units HS [facility] Administration Isosorbide Dinitrate 40 mg 05/14/17 10:00 05/14/17 11:27 Isoditrate Er PO 40 mg BIDISORDIL [facility] Administration Mirtazapine 15 mg 05/13/17 22:00 05/13/17 22:02 Remeron - PO 15 mg HS [facility] Administration Mycophenolate Sodium 360 mg 05/13/17 22:00 05/13/17 22:01 Mycophenolic Acid PO 360 mg BID [facility] Administration Non-Formulary Medication 1 each 05/13/17 22:00 Patient's Own Med PO BID [facility] Oxycodone HCl 5 mg 05/13/17 19:24 05/14/17 11:22 Roxicodone - PO 5 mg Q6H PRN Administration PAIN Prednisone 5 mg 05/14/17 10:00 05/14/17 11:27 Deltasone - PO 5 mg DAILY [facility] Administration Senna 2 tab 05/13/17 22:00 05/13/17 22:02 Senna - PO 2 tab HS [facility] Administration Tamsulosin HCl 0.4 mg 05/14/17 08:30 05/14/17 09:03 Flomax - PO 0.4 mg DAILY@0830 [facility] Administration Torsemide 40 mg 05/14/17 10:00 05/14/17 09:18 Demadex - PO 40 mg DAILY [facility] Administration Trazodone HCl 50 mg 05/13/17 22:00 05/13/17 22:01 Desyrel - PO 50 mg HS [facility] Administration Impression 1. kidney transplant 2. CKD with baseline narcotics detective of 2.1 3. CHF 4. DM 5. HTN 6. chol 7. CAD 8. non compliance Plan - renal function is stable - cont current meds - spoke to pharmacy yesterday and pt is getting tacrolimus 1 mg PO BID - level may be low as he missed a dose - cont diuretics - will follow - baseline narcotics detective 2.1 - tacrolimus 1 mg bid, mycofenylate 360 BID, predisone [address] Gibbs
[2017-05-14] MEDS: hydrALAZINE HCL 50 MG TABLET (FP) PO SCH ×2 (13:16→21:36)
[2017-05-14] MEDS: MYCOPHENOLATE SODIUM 360 MG TABLET.DR PO SCH ×2 (13:16→21:35)
[2017-05-14] MEDS: BACITRACIN/POLYMYXIN B SULFATE 15 GM TUBE TP SCH (13:18)
--- NOTE | 2017-05-14 15:10 | PN ---
Physical Exam: SUBJECTIVE: Patient seen and examined. He offers no complaints. Denies pain, SOB , chest pain, dizziness, abdominal discomfort, urinary symptoms, fevers, and headache. OBJECTIVE: Vital Signs Period Temp Pulse Resp BP Sys/Gonsalez Pulse Ox Last 24 Hr 98.2 F 48-74 18-24 119-150/64-84 97-100 GENERAL: Awake, alert, and fully oriented, in no acute distress. HEAD: Normal with no signs of trauma. EYES: Scleral icterus EARS, NOSE, THROAT: Ears normal, nares patent, oropharynx clear without exudates. Moist mucous membranes. NECK: supple LUNGS: Breath sounds equal, clear to auscultation bilaterally. No wheezes, and no crackles. No accessory muscle use. HEART: sinus bradycardia, normal S1 and S2 without murmur, rub or gallop. ABDOMEN: soft, distended, normoactive bowel sounds, no guarding, no rebound, no masses. EXTREMITIES: 1cm ulcerated punched out lesion on right great toe without drainage, 5x6cm Left padron blister without drainage Laboratory Results - last 24 hr 05/13/17 05/13/17 05/13/17 14:39 15:45 15:45 WBC RBC Hgb Hct MCV MCH MCHC RDW Plt Count MPV INR PTT (Actin FS) Puncture Site Right radial ABG pH 7.45 ABG pCO2 at Pt Temp 39.0 ABG pO2 at Pt Temp 67.6 L ABG HCO3 26.4 H ABG O2 Sat (Measured) 93.6 ABG O2 Content 15.0 ABG Base Excess 2.7 H Herminio Test Positive O2 Delivery Device Nasal o2 Oxygen Flow Rate 3l Sodium Potassium Chloride Carbon Dioxide Anion Gap BUN Creatinine Creat Clearance w eGFR POC Glucometer Random Glucose Calcium Phosphorus Magnesium Total Bilirubin AST ALT Alkaline Phosphatase Creatine Kinase 77 Troponin I 0.10 H 0.10 H Total Protein Albumin 05/13/17 05/13/17 05/14/17 18:04 21:23 05:00 WBC RBC Hgb Hct MCV MCH MCHC RDW Plt Count MPV INR PTT (Actin FS) Puncture Site ABG pH ABG pCO2 at Pt Temp ABG pO2 at Pt Temp ABG HCO3 ABG O2 Sat (Measured) ABG O2 Content ABG Base Excess Herminio Test O2 Delivery Device Oxygen Flow Rate Sodium 139 Potassium 3.7 Chloride 102 Carbon Dioxide 26 Anion Gap 11 BUN 80 H Creatinine 2.2 H Creat Clearance w eGFR 29.41 POC Glucometer 269.79827 337.47902 Random Glucose 71 L D Calcium 9.4 Phosphorus 3.9 Magnesium 2.4 Total Bilirubin 1.7 H AST 26 ALT 25 Alkaline Phosphatase 201 H Creatine Kinase Troponin I Total Protein 6.8 Albumin 3.3 L 05/14/17 05/14/17 05/14/17 05:00 05:38 06:00 WBC 8.3 RBC 4.92 Hgb 11.9 Hct 38.0 MCV 77.3 L MCH 24.2 L MCHC 31.3 L RDW 18.0 H Plt Count 83 L MPV 10.7 INR PTT (Actin FS) Puncture Site ABG pH ABG pCO2 at Pt Temp ABG pO2 at Pt Temp ABG HCO3 ABG O2 Sat (Measured) ABG O2 Content ABG Base Excess Herminio Test O2 Delivery Device Oxygen Flow Rate Sodium Potassium Chloride Carbon Dioxide Anion Gap BUN Creatinine Creat Clearance w eGFR POC Glucometer 95.95362 Random Glucose Calcium Phosphorus Magnesium Total Bilirubin AST ALT Alkaline Phosphatase Creatine Kinase 58 Troponin I 0.09 H Total Protein Albumin 05/14/17 06:00 WBC RBC Hgb Hct MCV MCH MCHC RDW Plt Count MPV INR 1.36 H PTT (Actin FS) 31.9 Puncture Site ABG pH ABG pCO2 at Pt Temp ABG pO2 at Pt Temp ABG HCO3 ABG O2 Sat (Measured) ABG O2 Content ABG Base Excess Herminio Test O2 Delivery Device Oxygen Flow Rate Sodium Potassium Chloride Carbon Dioxide Anion Gap BUN Creatinine Creat Clearance w eGFR POC Glucometer Random Glucose Calcium Phosphorus Magnesium Total Bilirubin AST ALT Alkaline Phosphatase Creatine Kinase Troponin I Total Protein Albumin Active Medications Generic Name Dose Route Start Last Admin Trade Name Freq PRN Reason Stop Dose Admin Acetaminophen 650 mg 05/13/17 19:24 05/14/17 11:23 Tylenol - PO 650 mg Q6H PRN Administration FEVER OR PAIN Albuterol/Ipratropium 1 amp 05/13/17 19:24 Duoneb - NEB Q6H PRN SHORTNESS OF BREATH Aspirin 81 mg 05/14/17 10:00 05/14/17 09:05 Asa - PO 81 mg DAILY [facility] Administration Atorvastatin Calcium 20 mg 05/13/17 22:00 05/13/17 22:01 Lipitor - PO 20 mg HS [facility] Administration Bacitracin/Polymyxin B Sulfate 1 applic 05/14/17 12:00 05/14/17 13:18 Polysporin Ointment - TP 1 applic DAILY [facility] Administration Carvedilol 12.5 mg 05/13/17 22:00 05/14/17 09:06 Coreg - PO 12.5 mg BID [facility] Administration Clonidine 0.1 mg 05/13/17 22:00 05/14/17 09:05 Catapres - PO 0.1 mg BID [facility] Administration Clopidogrel Bisulfate 75 mg 05/14/17 10:00 05/14/17 09:18 Plavix - PO 75 mg DAILY [facility] Administration Collagenase 1 applic 05/14/17 10:00 05/14/17 11:03 Santyl - TP 1 applic DAILY [facility] Administration Docusate Sodium 300 mg 05/13/17 22:00 05/13/17 22:00 Colace - PO 300 mg HS [facility] Administration Hydralazine HCl 100 mg 05/13/17 22:00 05/14/17 13:16 Apresoline - PO 100 mg TID [facility] Administration Piperacillin Sod/Tazobactam Sod 50 mls @ 100 mls/hr 05/14/17 02:00 05/14/17 09: 04 Zosyn 2.25gm Ivpb (Pre-Docked) IVPB 100 mls/hr Q8H-IV [facility] Administration Protocol Insulin Aspart 1 vial 05/13/17 22:00 05/14/17 11:39 Novolog Vial Sliding Scale - SQ Not Given ACHS [facility] Protocol Insulin Detemir 15 units 05/13/17 22:00 05/13/17 22:03 Levemir Vial SQ 15 units HS [facility] Administration Isosorbide Dinitrate 40 mg 05/14/17 10:00 05/14/17 11:27 Isoditrate Er PO 40 mg BIDISORDIL [facility] Administration Mirtazapine 15 mg 05/13/17 22:00 05/13/17 22:02 Remeron - PO 15 mg HS [facility] Administration Mycophenolate Sodium 360 mg 05/13/17 22:00 05/14/17 13:16 Mycophenolic Acid PO 360 mg BID [facility] Administration Non-Formulary Medication 1 each 05/13/17 22:00 Patient's Own Med PO BID [facility] Oxycodone HCl 5 mg 05/13/17 19:24 05/14/17 11:22 Roxicodone - PO 5 mg Q6H PRN Administration PAIN Prednisone 5 mg 05/14/17 10:00 05/14/17 11:27 Deltasone - PO 5 mg DAILY [facility] Administration Senna 2 tab 05/13/17 22:00 05/13/17 22:02 Senna - PO 2 tab HS [facility] Administration Tamsulosin HCl 0.4 mg 05/14/17 08:30 05/14/17 09:03 Flomax - PO 0.4 mg DAILY@0830 [facility] Administration Torsemide 40 mg 05/14/17 10:00 05/14/17 09:18 Demadex - PO 40 mg DAILY [facility] Administration Trazodone HCl 50 mg 05/13/17 22:00 05/13/17 22:01 Desyrel - PO 50 mg HS [facility] Administration Chest X ray: progressive congestive and infiltrative changes with some pleural fluid. ASSESSMENT/PLAN: B/L PNA vs CHF -continue abx: Vancomycin 1g, Zosyn -WBC improved - 1 set cultures + gram positive clusters - Vanc troph in the morning -repeat Bcx in the morning -Stop Zithromax (interaction with tacrolimus) Visit type - Emergency Visit Emergency Visit: Yes ED Registration Date: 05/12/17 Care time: The patient presented to the Emergency Department on the above date and was hospitalized for further evaluation of their emergent condition. - New Patient This patient is new to me today: No - Critical Care Critical Care patient: No
[2017-05-14] MEDS ORDERED: VANCOMYCIN 1 GRAM (PRE-DOCKED) 250 ML IVPB ONE (15:45)
--- NOTE | 2017-05-14 15:52 | PN ---
Progress Note, Physician Chief Complaint: Cardiology Follow up Mild dyspnea Telem NSR History of Present Illness: 76 M with ESRD sp Rtxp with CKD Cr 2.2, ischemic CM sp AICD, multiple heart failure admissions (last 03/2017 at [facility]) Last Echocardiogram 01/2017 EF 25 % with severe RV dysfunction. Transferred [facility] the [facility] yesterday with dyspnea, hypoxia and hypoglycemia. CXR showed pulmonary vascular congestion and possibly PNA. Pt recived IV diuretic and emperic Abx. Blood Cx 1 bottle gram pos - Current Medication List Current Medications: Active Medications Acetaminophen (Tylenol -) 650 mg PO Q6H PRN PRN Reason: FEVER OR PAIN Last Admin: 05/14/17 11:23 Dose: 650 mg Albuterol/Ipratropium (Duoneb -) 1 amp NEB Q6H PRN PRN Reason: SHORTNESS OF BREATH Aspirin (Asa -) 81 mg PO DAILY [facility] Last Admin: 05/14/17 09:05 Dose: 81 mg Atorvastatin Calcium (Lipitor -) 20 mg PO HS [facility] Last Admin: 05/13/17 22:01 Dose: 20 mg Bacitracin/Polymyxin B Sulfate (Polysporin Ointment -) 1 applic TP DAILY [facility] Last Admin: 05/14/17 13:18 Dose: 1 applic Carvedilol (Coreg -) 12.5 mg PO BID [facility] Last Admin: 05/14/17 09:06 Dose: 12.5 mg Clonidine (Catapres -) 0.1 mg PO BID [facility] Last Admin: 05/14/17 09:05 Dose: 0.1 mg Clopidogrel Bisulfate (Plavix -) 75 mg PO DAILY [facility] Last Admin: 05/14/17 09:18 Dose: 75 mg Collagenase (Santyl -) 1 applic TP DAILY [facility] Last Admin: 05/14/17 11:03 Dose: 1 applic Docusate Sodium (Colace -) 300 mg PO HS [facility] Last Admin: 05/13/17 22:00 Dose: 300 mg Hydralazine HCl (Apresoline -) 100 mg PO TID [facility] Last Admin: 05/14/17 13:16 Dose: 100 mg Piperacillin Sod/Tazobactam Sod (Zosyn 2.25gm Ivpb (Pre-Docked)) 50 mls @ 100 mls/hr IVPB Q8H-IV [facility] PRN Reason: Protocol Last Admin: 05/14/17 09:04 Dose: 100 mls/hr Vancomycin HCl (Vancomycin (Pre-Docked)) 250 mls @ 250 mls/hr IVPB ONCE ONE PRN Reason: Protocol Stop: 05/14/17 16:44 Insulin Aspart (Novolog Vial Sliding Scale -) 1 vial SQ [facility] PRN Reason: Protocol Last Admin: 05/14/17 11:39 Dose: Not Given Insulin Detemir (Levemir Vial) 15 units SQ [facility] Last Admin: 05/13/17 22:03 Dose: 15 units Isosorbide Dinitrate (Isoditrate Er) 40 mg PO BIDISORDIL [facility] Last Admin: 05/14/17 11:27 Dose: 40 mg Mirtazapine (Remeron -) 15 mg PO HS [facility] Last Admin: 05/13/17 22:02 Dose: 15 mg Mycophenolate Sodium (Mycophenolic Acid) 360 mg PO BID [facility] Last Admin: 05/14/17 13:16 Dose: 360 mg Non-Formulary Medication (Patient's Own Med) 1 each PO BID [facility] Oxycodone HCl (Roxicodone -) 5 mg PO Q6H PRN PRN Reason: PAIN Last Admin: 05/14/17 11:22 Dose: 5 mg Prednisone (Deltasone -) 5 mg PO DAILY [facility] Last Admin: 05/14/17 11:27 Dose: 5 mg Senna (Senna -) 2 tab PO [facility] Last Admin: 05/13/17 22:02 Dose: 2 tab Tamsulosin HCl (Flomax -) 0.4 mg PO DAILY@0830 [facility] Last Admin: 05/14/17 09:03 Dose: 0.4 mg Torsemide (Demadex -) 40 mg PO DAILY [facility] Last Admin: 05/14/17 09:18 Dose: 40 mg Trazodone HCl (Desyrel -) 50 mg PO [facility] Last Admin: 05/13/17 22:01 Dose: 50 mg - Objective Vital Signs: Vital Signs Temperature 97.8 F 05/14/17 15:41 Pulse Rate 46 L 05/14/17 15:41 Respiratory Rate 18 05/14/17 15:41 Blood Pressure 119/64 05/14/17 15:41 O2 Sat by Pulse Oximetry (%) 100 05/14/17 09:00 Constitutional: Yes: Calm, Thin Eyes: Yes: Conjunctiva Clear HENT: Yes: Atraumatic Neck: Yes: Trachea Midline Cardiovascular: Yes: Regular Rate and Rhythm, JVD Respiratory: Yes: Diminished, Rales Gastrointestinal: Yes: Normal Bowel Sounds Edema: No Labs: CBC, BMP 05/14/17 06:00 05/14/17 05:00 INR, PTT INR 1.36 (0.82-1.09) H 05/14/17 06:00 - ....Imaging Chest X-ray: Report Reviewed Problem List - Problems (1) Shortness of breath Code(s): R06.02 - SHORTNESS OF BREATH (2) Systolic CHF Code(s): I50.20 - UNSPECIFIED SYSTOLIC (CONGESTIVE) HEART FAILURE (3) HTN (hypertension) Code(s): I10 - ESSENTIAL (PRIMARY) HYPERTENSION Assessment/Plan 76 yo with severe ischemic CM and EF 25%, severe RV dysfunction (prophylactic AICD). Recurrent heart failure admissions in the past and is admitted with hypoxia and hypoglycemia. Possibly PNA with acute on chronic heart failure. TP elevation likely due to demand mediated ischemia and will be managed medically. Continue to use diuretics as ordered. Will raise Coreg dose once adequately diuresed.
[2017-05-14] MEDS ORDERED: morphine CARPU-JECT 2 MG/1 ML DISP.SYRIN ONE (16:07)
--- NOTE | 2017-05-14 17:10 | PN ---
Progress Note, Physician Chief Complaint: AWAKE MORE ALERT TODAY EATING A MEAL DENIES CHEST PAIN MILD DYSPNEA - Current Medication List Current Medications: Active Medications Acetaminophen (Tylenol -) 650 mg PO Q6H PRN PRN Reason: FEVER OR PAIN Last Admin: 05/14/17 11:23 Dose: 650 mg Albuterol/Ipratropium (Duoneb -) 1 amp NEB Q6H PRN PRN Reason: SHORTNESS OF BREATH Aspirin (Asa -) 81 mg PO DAILY [facility] Last Admin: 05/14/17 09:05 Dose: 81 mg Atorvastatin Calcium (Lipitor -) 20 mg PO HS [facility] Last Admin: 05/13/17 22:01 Dose: 20 mg Bacitracin/Polymyxin B Sulfate (Polysporin Ointment -) 1 applic TP DAILY [facility] Last Admin: 05/14/17 13:18 Dose: 1 applic Carvedilol (Coreg -) 12.5 mg PO BID [facility] Last Admin: 05/14/17 09:06 Dose: 12.5 mg Clonidine (Catapres -) 0.1 mg PO BID [facility] Last Admin: 05/14/17 09:05 Dose: 0.1 mg Clopidogrel Bisulfate (Plavix -) 75 mg PO DAILY [facility] Last Admin: 05/14/17 09:18 Dose: 75 mg Collagenase (Santyl -) 1 applic TP DAILY [facility] Last Admin: 05/14/17 11:03 Dose: 1 applic Docusate Sodium (Colace -) 300 mg PO HS [facility] Last Admin: 05/13/17 22:00 Dose: 300 mg Hydralazine HCl (Apresoline -) 100 mg PO TID [facility] Last Admin: 05/14/17 13:16 Dose: 100 mg Piperacillin Sod/Tazobactam Sod (Zosyn 2.25gm Ivpb (Pre-Docked)) 50 mls @ 100 mls/hr IVPB Q8H-IV [facility] PRN Reason: Protocol Last Admin: 05/14/17 09:04 Dose: 100 mls/hr Insulin Aspart (Novolog Vial Sliding Scale -) 1 vial SQ ACHS [facility] PRN Reason: Protocol Last Admin: 05/14/17 16:34 Dose: 2 units Insulin Detemir (Levemir Vial) 15 units SQ HS [facility] Last Admin: 05/13/17 22:03 Dose: 15 units Isosorbide Dinitrate (Isoditrate Er) 40 mg PO BIDISORDIL [facility] Last Admin: 05/14/17 11:27 Dose: 40 mg Mirtazapine (Remeron -) 15 mg PO HS [facility] Last Admin: 05/13/17 22:02 Dose: 15 mg Mycophenolate Sodium (Mycophenolic Acid) 360 mg PO BID [facility] Last Admin: 05/14/17 13:16 Dose: 360 mg Non-Formulary Medication (Patient's Own Med) 1 each PO BID [facility] Oxycodone HCl (Roxicodone -) 5 mg PO Q6H PRN PRN Reason: PAIN Last Admin: 05/14/17 11:22 Dose: 5 mg Prednisone (Deltasone -) 5 mg PO DAILY [facility] Last Admin: 05/14/17 11:27 Dose: 5 mg Senna (Senna -) 2 tab PO HS [facility] Last Admin: 05/13/17 22:02 Dose: 2 tab Tamsulosin HCl (Flomax -) 0.4 mg PO DAILY@0830 [facility] Last Admin: 05/14/17 09:03 Dose: 0.4 mg Torsemide (Demadex -) 40 mg PO DAILY [facility] Last Admin: 05/14/17 09:18 Dose: 40 mg Trazodone HCl (Desyrel -) [address] [facility] Last Admin: 05/13/17 22:01 Dose: 50 mg - Objective Vital Signs: Vital Signs Temperature 98.2 F 05/14/17 16:00 Pulse Rate 54 L 05/14/17 16:23 Respiratory Rate 18 05/14/17 16:23 Blood Pressure 151/73 05/14/17 16:23 O2 Sat by Pulse Oximetry (%) 100 05/14/17 09:00 Constitutional: Yes: Mild Distress Eyes: Yes: WNL HENT: Yes: WNL Neck: Yes: WNL Cardiovascular: Yes: WNL Respiratory: Yes: On Nasal O2, Wheezes Gastrointestinal: Yes: WNL Genitourinary: Yes: Other Musculoskeletal: Yes: Muscle Weakness Extremities: Yes: WNL Edema: No Peripheral Pulses WNL: Yes Integumentary: Yes: WNL Wound/Incision: Yes: Clean/Dry Neurological: Yes: Pre-Existing Deficit ...Motor Strength: LLE, RLE Psychiatric: Yes: Other Labs: CBC, BMP 05/14/17 06:00 05/14/17 05:00 INR, PTT INR 1.36 (0.82-1.09) H 05/14/17 06:00 Problem List - Problems (1) Hepatic congestion Code(s): K76.1 - CHRONIC PASSIVE CONGESTION OF LIVER (2) Kidney transplant recipient Code(s): Z94.0 - KIDNEY TRANSPLANT STATUS (3) Shortness of breath Code(s): R06.02 - SHORTNESS OF BREATH (4) Systolic CHF Code(s): I50.20 - UNSPECIFIED SYSTOLIC (CONGESTIVE) HEART FAILURE (5) Diabetes mellitus Code(s): E11.9 - TYPE 2 DIABETES MELLITUS WITHOUT COMPLICATIONS (6) HTN (hypertension) Code(s): I10 - ESSENTIAL (PRIMARY) HYPERTENSION (7) Hyperlipidemia Code(s): E78.5 - HYPERLIPIDEMIA, UNSPECIFIED (8) Renal failure, chronic Code(s): N18.9 - CHRONIC KIDNEY DISEASE, UNSPECIFIED (9) Metabolic encephalopathy Code(s): G93.41 - METABOLIC ENCEPHALOPATHY (10) Sepsis Code(s): A41.9 - SEPSIS, UNSPECIFIED ORGANISM Assessment/Plan iv abx neuro eval cultures pending renal tx f/u nephrology icu for bp monitoring id consult check lactic acid level
[2017-05-14] MEDS: DOCUSATE SODIUM 100 MG CAPSULE (FP) PO SCH (21:35)
[2017-05-14] MEDS: traZODone HCL 50 MG TABLET (FP) PO SCH (21:35)
[2017-05-14] MEDS: SENNOSIDES 8.6MG TABLET (FP) PO SCH (21:36)
[2017-05-14] MEDS: ATORVASTATIN CA 20 MG TABLET (FP) PO SCH (21:36)
[2017-05-14] MEDS: MIRTAZAPINE 15 MG TABLET (FP) PO SCH (21:36)
[2017-05-14] MEDS: INSULIN DETEMIR 100 UNITS/ML MDV SQ SCH (21:37)
--- NOTE | 2017-05-15 06:42 | PN ---
Progress Note, Physician Chief Complaint: IN BED ASLEEP, NAD - Current Medication List Current Medications: Active Medications Acetaminophen (Tylenol -) 650 mg PO Q6H PRN PRN Reason: FEVER OR PAIN Last Admin: 05/14/17 20:06 Dose: 650 mg Albuterol/Ipratropium (Duoneb -) 1 amp NEB Q6H PRN PRN Reason: SHORTNESS OF BREATH Aspirin (Asa -) 81 mg PO DAILY [facility] Last Admin: 05/14/17 09:05 Dose: 81 mg Atorvastatin Calcium (Lipitor -) 20 mg PO HS [facility] Last Admin: 05/14/17 21:36 Dose: 20 mg Bacitracin/Polymyxin B Sulfate (Polysporin Ointment -) 1 applic TP DAILY [facility] Last Admin: 05/14/17 13:18 Dose: 1 applic Carvedilol (Coreg -) 12.5 mg PO BID [facility] Last Admin: 05/14/17 21:35 Dose: 12.5 mg Clonidine (Catapres -) 0.1 mg PO BID [facility] Last Admin: 05/14/17 21:36 Dose: 0.1 mg Clopidogrel Bisulfate (Plavix -) 75 mg PO DAILY [facility] Last Admin: 05/14/17 09:18 Dose: 75 mg Collagenase (Santyl -) 1 applic TP DAILY [facility] Last Admin: 05/14/17 11:03 Dose: 1 applic Docusate Sodium (Colace -) 300 mg PO HS [facility] Last Admin: 05/14/17 21:35 Dose: Not Given Hydralazine HCl (Apresoline -) 100 mg PO TID [facility] Last Admin: 05/14/17 21:36 Dose: 100 mg Piperacillin Sod/Tazobactam Sod (Zosyn 2.25gm Ivpb (Pre-Docked)) 50 mls @ 100 mls/hr IVPB Q8H-IV [facility] PRN Reason: Protocol Last Admin: 05/14/17 17:08 Dose: 100 mls/hr Insulin Aspart (Novolog Vial Sliding Scale -) 1 vial SQ ACHS [facility] PRN Reason: Protocol Last Admin: 05/14/17 21:37 Dose: 2 units Insulin Detemir (Levemir Vial) 15 units SQ HS [facility] Last Admin: 05/14/17 21:37 Dose: 15 units Isosorbide Dinitrate (Isoditrate Er) 40 mg PO BIDISORDIL [facility] Last Admin: 05/14/17 11:27 Dose: 40 mg Mirtazapine (Remeron -) 15 mg PO HS [facility] Last Admin: 05/14/17 21:36 Dose: 15 mg Mycophenolate Sodium (Mycophenolic Acid) 360 mg PO BID [facility] Last Admin: 05/14/17 21:35 Dose: 360 mg Non-Formulary Medication (Patient's Own Med) 1 each PO BID [facility] Oxycodone HCl (Roxicodone -) 5 mg PO Q6H PRN PRN Reason: PAIN Last Admin: 05/14/17 20:05 Dose: 5 mg Prednisone (Deltasone -) 5 mg PO DAILY [facility] Last Admin: 05/14/17 11:27 Dose: 5 mg Senna (Senna -) 2 tab PO HS [facility] Last Admin: 05/14/17 21:36 Dose: 2 tab Tamsulosin HCl (Flomax -) 0.4 mg PO DAILY@0830 [facility] Last Admin: 05/14/17 09:03 Dose: 0.4 mg Torsemide (Demadex -) 40 mg PO DAILY [facility] Last Admin: 05/14/17 09:18 Dose: 40 mg Trazodone HCl (Desyrel -) 50 mg PO HS [facility] Last Admin: 05/14/17 21:35 Dose: 50 mg - Objective Vital Signs: Vital Signs Temperature 98.2 F 05/15/17 02:13 Pulse Rate 56 L 05/15/17 02:13 Respiratory Rate 18 05/15/17 02:13 Blood Pressure 131/64 05/15/17 02:13 O2 Sat by Pulse Oximetry (%) 97 05/14/17 21:00 Constitutional: Yes: Mild Distress Eyes: Yes: WNL HENT: Yes: WNL Neck: Yes: WNL Cardiovascular: Yes: WNL Respiratory: Yes: WNL Gastrointestinal: Yes: WNL Genitourinary: Yes: Other Musculoskeletal: Yes: Muscle Weakness Extremities: Yes: Other Edema: Yes Edema: LLE: Trace, RLE: Trace Peripheral Pulses WNL: Yes Integumentary: Yes: Other Wound/Incision: Yes: Clean/Dry Neurological: Yes: Pre-Existing Deficit ...Motor Strength: LLE, RLE Psychiatric: Yes: Other Labs: CBC, BMP 05/14/17 06:00 05/14/17 05:00 INR, PTT INR 1.36 (0.82-1.09) H 05/14/17 06:00 Problem List - Problems (1) Hepatic congestion Code(s): K76.1 - CHRONIC PASSIVE CONGESTION OF LIVER (2) Kidney transplant recipient Code(s): Z94.0 - KIDNEY TRANSPLANT STATUS (3) Shortness of breath Code(s): R06.02 - SHORTNESS OF BREATH (4) Systolic CHF Code(s): I50.20 - UNSPECIFIED SYSTOLIC (CONGESTIVE) HEART FAILURE (5) Diabetes mellitus Code(s): E11.9 - TYPE 2 DIABETES MELLITUS WITHOUT COMPLICATIONS (6) HTN (hypertension) Code(s): I10 - ESSENTIAL (PRIMARY) HYPERTENSION (7) Hyperlipidemia Code(s): E78.5 - HYPERLIPIDEMIA, UNSPECIFIED (8) Renal failure, chronic Code(s): N18.9 - CHRONIC KIDNEY DISEASE, UNSPECIFIED (9) Metabolic encephalopathy Code(s): G93.41 - METABOLIC ENCEPHALOPATHY (10) Sepsis Code(s): A41.9 - SEPSIS, UNSPECIFIED ORGANISM Assessment/Plan IV ABX ID CONSULT APPRECIATED ICU FOR MONITORING BP RENAL EVAL CRI/STATUS POST RENAL TX ADA BGM LOW TODAY D50 IVP GIVEN WILL MONITOR BGM AC/HS ENCOURAGE PO INTAKE
[2017-05-15] MEDS ORDERED: DEXTROSE 50%-WATER 50 ML DISP.SYRIN IVPUSH ONE (08:00)
[2017-05-15] MEDS: INSULIN SLIDING SCALE (NOVOLOG) 1 VIAL SQ SCH ×4 (08:17→21:35)
[2017-05-15] MEDS ORDERED: PT OWN MED DRAWER 7, Y5N ONE ×2 (09:15→18:18)
[2017-05-15] MEDS: ISOSORBIDE DINITRATE 40 MG PO SCH ×2 (09:19→18:19)
[2017-05-15] MEDS: PIPERACILLIN/TAZOB 2.25 GM 50 ML IVPB SCH ×2 (09:19→17:37)
[2017-05-15] MEDS: ASPIRIN 81 MG CHEWABLE TABLETS PO SCH (09:20)
[2017-05-15] MEDS: TAMSULOSIN HCL 0.4 MG CAP.ER.24H (FP) PO SCH (09:20)
[2017-05-15] MEDS: CARVEDILOL 12.5 MG TABLET (FP) PO SCH ×2 (09:20→21:33)
[2017-05-15] MEDS: cloNIDine HCL 0.1 MG TABLET PO SCH ×2 (09:20→21:34)
[2017-05-15] MEDS: CLOPIDOGREL BISULFATE 75 MG TABLET (FP) PO SCH (09:21)
[2017-05-15] MEDS: TORSEMIDE 20 MG TABLET (FP) PO SCH (09:21)
[2017-05-15] MEDS: predniSONE 5 MG TABLET (UD) PO SCH (09:21)
[2017-05-15] MEDS: MYCOPHENOLATE SODIUM 360 MG TABLET.DR PO SCH ×2 (09:21→21:33)
--- NOTE | 2017-05-15 11:41 | PN ---
Physical Exam: SUBJECTIVE: Patient seen and examined. He offers no complaints. Says he feels comfortable. Denies pain, SOB, chest pain, dizziness, abdominal discomfort, urinary symptoms, fevers, and headache. OBJECTIVE: Vital Signs Period Temp Pulse Resp BP Sys/Gonsalez Pulse Ox Last 24 Hr 97.5 F-98.2 F 46-62 16-21 119-151/64-80 97 GENERAL: Awake, alert, and fully oriented, in no acute distress. HEAD: Normal with no signs of trauma. EYES: Scleral anicteric EARS, NOSE, THROAT: Ears normal, nares patent, oropharynx clear without exudates. Moist mucous membranes. NECK: supple LUNGS: Breath sounds equal, clear to auscultation bilaterally. No wheezes, and no crackles. No accessory muscle use. HEART: sinus bradycardia, normal S1 and S2 without murmur, rub or gallop. ABDOMEN: soft, distended, normoactive bowel sounds, no guarding, no rebound, no masses. EXTREMITIES: 1cm ulcerated punched out lesion on right great toe without drainage, 5x6cm Left padron blister without drainage Laboratory Results - last 24 hr 05/14/17 05/14/17 05/14/17 11:29 16:31 20:58 POC Glucometer 89.19775 204.66982 246.20653 Random Vancomycin 05/15/17 05/15/17 05/15/17 05:55 06:22 07:49 POC Glucometer 51.33036 < 50 Random Vancomycin 17.516 05/15/17 05/15/17 08:38 11:16 POC Glucometer 155.94636 163.43874 Random Vancomycin Active Medications Generic Name Dose Route Start Last Admin Trade Name Freq PRN Reason Stop Dose Admin Acetaminophen 650 mg 05/13/17 19:24 05/14/17 20:06 Tylenol - PO 650 mg Q6H PRN Administration FEVER OR PAIN Albuterol/Ipratropium 1 amp 05/13/17 19:24 Duoneb - NEB Q6H PRN SHORTNESS OF BREATH Aspirin 81 mg 05/14/17 10:00 05/15/17 09:20 Asa - PO 81 mg DAILY [facility] Administration Atorvastatin Calcium 20 mg 05/13/17 22:00 05/14/17 21:36 Lipitor - PO 20 mg HS [facility] Administration Bacitracin/Polymyxin B Sulfate 1 applic 05/14/17 12:00 05/14/17 13:18 Polysporin Ointment - TP 1 applic DAILY [facility] Administration Carvedilol 12.5 mg 05/13/17 22:00 05/15/17 09:20 Coreg - PO 12.5 mg BID [facility] Administration Clonidine 0.1 mg 05/13/17 22:00 05/15/17 09:20 Catapres - PO 0.1 mg BID [facility] Administration Clopidogrel Bisulfate 75 mg 05/14/17 10:00 05/15/17 09:21 Plavix - PO 75 mg DAILY [facility] Administration Collagenase 1 applic 05/14/17 10:00 05/14/17 11:03 Santyl - TP 1 applic DAILY [facility] Administration Docusate Sodium 300 mg 05/13/17 22:00 05/14/17 21:35 Colace - PO Not Given HS [facility] Hydralazine HCl 100 mg 05/13/17 22:00 05/14/17 21:36 Apresoline - PO 100 mg TID [facility] Administration Piperacillin Sod/Tazobactam Sod 50 mls @ 100 mls/hr 05/14/17 02:00 05/15/17 09: 19 Zosyn 2.25gm Ivpb (Pre-Docked) IVPB 100 mls/hr Q8H-IV [facility] Administration Protocol Insulin Aspart 1 vial 05/13/17 22:00 05/15/17 08:17 Novolog Vial Sliding Scale - SQ Not Given ACHS [facility] Protocol Insulin Detemir 15 units 05/13/17 22:00 05/14/17 21:37 Levemir Vial SQ 15 units HS [facility] Administration Isosorbide Dinitrate 40 mg 05/14/17 10:00 05/15/17 09:19 Isoditrate Er PO 40 mg BIDISORDIL [facility] Administration Mirtazapine 15 mg 05/13/17 22:00 05/14/17 21:36 Remeron - PO 15 mg HS [facility] Administration Mycophenolate Sodium 360 mg 05/13/17 22:00 05/15/17 09:21 Mycophenolic Acid PO 360 mg BID [facility] Administration Prograf 1mg Capsule( 1 each 05/15/17 10:00 Pt Own Medication) PO BID [facility] Oxycodone HCl 5 mg 05/13/17 19:24 05/14/17 20:05 Roxicodone - PO 5 mg Q6H PRN Administration PAIN Prednisone 5 mg 05/14/17 10:00 05/15/17 09:21 Deltasone - PO 5 mg DAILY [facility] Administration Senna 2 tab 05/13/17 22:00 05/14/17 21:36 Senna - PO 2 tab HS [facility] Administration Tamsulosin HCl 0.4 mg 05/14/17 08:30 05/15/17 09:20 Flomax - PO 0.4 mg DAILY@0830 [facility] Administration Torsemide 40 mg 05/14/17 10:00 05/15/17 09:21 Demadex - PO 40 mg DAILY [facility] Administration Trazodone HCl 50 mg 05/13/17 22:00 05/14/17 21:35 Desyrel - PO 50 mg HS [facility] Administration Microbiology 05/12/17 18:32 Blood - Peripheral Venous Blood Culture - Preliminary Staphylococcus Coagulase Neg ASSESSMENT/PLAN: B/L PNA vs CHF -continue Zosyn -WBC improved - 1 set cultures + for coag neg staph (likely contaminate) Visit type - Emergency Visit Emergency Visit: Yes ED Registration Date: 05/12/17 Care time: The patient presented to the Emergency Department on the above date and was hospitalized for further evaluation of their emergent condition. - New Patient This patient is new to me today: No - Critical Care Critical Care patient: No
--- NOTE | 2017-05-15 12:31 | PN ---
Teaching Attending Note Name of Resident: Sunshine Li ATTENDING PHYSICIAN STATEMENT I saw and evaluated the patient. I reviewed the resident's note and discussed the case with the resident. I agree with the resident's findings and plan as documented. SUBJECTIVE: Awake, alert No complaints offered Temp spike noted WBC WNL BC one bottle SCN OBJECTIVE: Lethargic No acute distress Cor S1S2+m decreased BS bilaterally Abdomen soft, non tender trace edema + LE ulcers, not clinically infected ASSESSMENT AND PLAN: Bilateral pneumonia v. CHF + BC SCN x 1 bottle, likely contaminant CKD S/P renal transplant on immunosuppressive tx DM Continue zosyn D/C vancomycin
[2017-05-15] MEDS: hydrALAZINE HCL 50 MG TABLET (FP) PO SCH ×2 (13:19→21:32)
[2017-05-15] MEDS: BACITRACIN/POLYMYXIN B SULFATE 15 GM TUBE TP SCH (13:20)
[2017-05-15] MEDS: PROGRAF 1 MG PO SCH ×2 (13:20→21:35)
[2017-05-15] MEDS: COLLAGENASE CLOSTRIDIUM HIST. 30 GRAMS TUBE TP SCH (13:20)
--- NOTE | 2017-05-15 13:54 | PN ---
Progress Note, Physician History of Present Illness: Pt seen and examined at bedside. He is awake and alert. He says he does not have much appetite. - Current Medication List Current Medications: Active Medications Acetaminophen (Tylenol -) 650 mg PO Q6H PRN PRN Reason: FEVER OR PAIN Last Admin: 05/14/17 20:06 Dose: 650 mg Albuterol/Ipratropium (Duoneb -) 1 amp NEB Q6H PRN PRN Reason: SHORTNESS OF BREATH Aspirin (Asa -) 81 mg PO DAILY [facility] Last Admin: 05/15/17 09:20 Dose: 81 mg Atorvastatin Calcium (Lipitor -) 20 mg PO HS [facility] Last Admin: 05/14/17 21:36 Dose: 20 mg Bacitracin/Polymyxin B Sulfate (Polysporin Ointment -) 1 applic TP DAILY [facility] Last Admin: 05/15/17 13:20 Dose: 1 applic Carvedilol (Coreg -) 12.5 mg PO BID [facility] Last Admin: 05/15/17 09:20 Dose: 12.5 mg Clonidine (Catapres -) 0.1 mg PO BID [facility] Last Admin: 05/15/17 09:20 Dose: 0.1 mg Clopidogrel Bisulfate (Plavix -) 75 mg PO DAILY [facility] Last Admin: 05/15/17 09:21 Dose: 75 mg Collagenase (Santyl -) 1 applic TP DAILY [facility] Last Admin: 05/15/17 13:20 Dose: 1 applic Docusate Sodium (Colace -) 300 mg PO HS [facility] Last Admin: 05/14/17 21:35 Dose: Not Given Hydralazine HCl (Apresoline -) 100 mg PO TID [facility] Last Admin: 05/15/17 13:19 Dose: 100 mg Piperacillin Sod/Tazobactam Sod (Zosyn 2.25gm Ivpb (Pre-Docked)) 50 mls @ 100 mls/hr IVPB Q8H-IV [facility] PRN Reason: Protocol Last Admin: 05/15/17 09:19 Dose: 100 mls/hr Insulin Aspart (Novolog Vial Sliding Scale -) 1 vial SQ ACHS [facility] PRN Reason: Protocol Last Admin: 05/15/17 13:19 Dose: Not Given Insulin Detemir (Levemir Vial) 15 units SQ HS [facility] Last Admin: 05/14/17 21:37 Dose: 15 units Isosorbide Dinitrate (Isoditrate Er) 40 mg PO BIDISORDIL [facility] Last Admin: 05/15/17 09:19 Dose: 40 mg Mirtazapine (Remeron -) 15 mg PO HS [facility] Last Admin: 05/14/17 21:36 Dose: 15 mg Mycophenolate Sodium (Mycophenolic Acid) 360 mg PO BID [facility] Last Admin: 05/15/17 09:21 Dose: 360 mg Prograf 1mg Capsule( (Pt Own Medication)) 1 each PO BID [facility] Last Admin: 05/15/17 13:20 Dose: 1 each Oxycodone HCl (Roxicodone -) 5 mg PO Q6H PRN PRN Reason: PAIN Last Admin: 05/14/17 20:05 Dose: 5 mg Prednisone (Deltasone -) 5 mg PO DAILY [facility] Last Admin: 05/15/17 09:21 Dose: 5 mg Senna (Senna -) 2 tab PO [facility] Last Admin: 05/14/17 21:36 Dose: 2 tab Tamsulosin HCl (Flomax -) 0.4 mg PO DAILY@0830 [facility] Last Admin: 05/15/17 09:20 Dose: 0.4 mg Torsemide (Demadex -) 40 mg PO DAILY [facility] Last Admin: 05/15/17 09:21 Dose: 40 mg Trazodone HCl (Desyrel -) 50 mg PO [facility] Last Admin: 05/14/17 21:35 Dose: 50 mg - Objective Vital Signs: Vital Signs Temperature 98.1 F 05/15/17 13:40 Pulse Rate 64 05/15/17 13:40 Respiratory Rate 22 05/15/17 13:40 Blood Pressure 137/63 05/15/17 13:40 O2 Sat by Pulse Oximetry (%) 97 05/15/17 09:00 Constitutional: Yes: Calm Eyes: Yes: Conjunctiva Clear HENT: Yes: Atraumatic Cardiovascular: Yes: S1, S2 Respiratory: Yes: On Nasal O2 Gastrointestinal: Yes: Soft Genitourinary: Yes: Other (graft soft) Musculoskeletal: Yes: WNL Edema: No Neurological: Yes: Oriented Psychiatric: Yes: Oriented Labs: CBC, BMP 05/14/17 06:00 05/14/17 05:00 INR, PTT INR 1.36 (0.82-1.09) H 05/14/17 06:00 Problem List - Problems (1) Systolic CHF Code(s): I50.20 - UNSPECIFIED SYSTOLIC (CONGESTIVE) HEART FAILURE (2) Diabetes mellitus Code(s): E11.9 - TYPE 2 DIABETES MELLITUS WITHOUT COMPLICATIONS (3) Kidney transplant recipient Code(s): Z94.0 - KIDNEY TRANSPLANT STATUS Assessment/Plan Current Medications Generic Name Dose Route Start Last Admin Trade Name Freq PRN Reason Stop Dose Admin Acetaminophen 650 mg 05/13/17 19:24 05/14/17 20:06 Tylenol - PO 650 mg Q6H PRN Administration FEVER OR PAIN Albuterol/Ipratropium 1 amp 05/13/17 19:24 Duoneb - NEB Q6H PRN SHORTNESS OF BREATH Aspirin 81 mg 05/14/17 10:00 05/15/17 09:20 Asa - PO 81 mg DAILY [facility] Administration Atorvastatin Calcium 20 mg 05/13/17 22:00 05/14/17 21:36 Lipitor - PO 20 mg HS [facility] Administration Bacitracin/Polymyxin B Sulfate 1 applic 05/14/17 12:00 05/15/17 13:20 Polysporin Ointment - TP 1 applic DAILY [facility] Administration Carvedilol 12.5 mg 05/13/17 22:00 05/15/17 09:20 Coreg - PO 12.5 mg BID [facility] Administration Clonidine 0.1 mg 05/13/17 22:00 05/15/17 09:20 Catapres - PO 0.1 mg BID [facility] Administration Clopidogrel Bisulfate 75 mg 05/14/17 10:00 05/15/17 09:21 Plavix - PO 75 mg DAILY [facility] Administration Collagenase 1 applic 05/14/17 10:00 05/15/17 13:20 Santyl - TP 1 applic DAILY [facility] Administration Docusate Sodium 300 mg 05/13/17 22:00 05/14/17 21:35 Colace - PO Not Given HS [facility] Hydralazine HCl 100 mg 05/13/17 22:00 05/15/17 13:19 Apresoline - PO 100 mg TID [facility] Administration Piperacillin Sod/Tazobactam Sod 50 mls @ 100 mls/hr 05/14/17 02:00 05/15/17 09: 19 Zosyn 2.25gm Ivpb (Pre-Docked) IVPB 100 mls/hr Q8H-IV [facility] Administration Protocol Insulin Aspart 1 vial 05/13/17 22:00 05/15/17 13:19 Novolog Vial Sliding Scale - SQ Not Given ACHS [facility] Protocol Insulin Detemir 15 units 05/13/17 22:00 05/14/17 21:37 Levemir Vial SQ 15 units HS [facility] Administration Isosorbide Dinitrate 40 mg 05/14/17 10:00 05/15/17 09:19 Isoditrate Er PO 40 mg BIDISORDIL [facility] Administration Mirtazapine 15 mg 05/13/17 22:00 05/14/17 21:36 Remeron - PO 15 mg HS [facility] Administration Mycophenolate Sodium 360 mg 05/13/17 22:00 05/15/17 09:21 Mycophenolic Acid PO 360 mg BID [facility] Administration Prograf 1mg Capsule( 1 each 05/15/17 10:00 05/15/17 13:20 Pt Own Medication) PO 1 each BID [facility] Administration Oxycodone HCl 5 mg 05/13/17 19:24 05/14/17 20:05 Roxicodone - PO 5 mg Q6H PRN Administration PAIN Prednisone 5 mg 05/14/17 10:00 05/15/17 09:21 Deltasone - PO 5 mg DAILY [facility] Administration Senna 2 tab 05/13/17 22:00 05/14/17 21:36 Senna - PO 2 tab HS [facility] Administration Tamsulosin HCl 0.4 mg 05/14/17 08:30 05/15/17 09:20 Flomax - PO 0.4 mg DAILY@0830 [facility] Administration Torsemide 40 mg 05/14/17 10:00 05/15/17 09:21 Demadex - PO 40 mg DAILY [facility] Administration Trazodone HCl 50 mg 05/13/17 22:00 05/14/17 21:35 Desyrel - PO 50 mg HS [facility] Administration Impression 1. kidney transplant 2. CKD with baseline pugger helper of 2.1 3. CHF 4. DM 5. HTN 6. chol 7. CAD 8. non compliance Plan - no new labs, ordered cmp and cbc - cont current meds - prograf level pending, will likely be low - repeat level in am - baseline pugger helper 2.1 - tacrolimus 1 mg bid, mycofenylate 360 BID, predisone [address] Gibbs
--- NOTE | 2017-05-15 14:12 | PN ---
Progress Note (short form) - Note Progress Note: PULMONARY/CCM Denies shortness of breath or chest pain. No fevers recorded. Last Vital Signs Temp Pulse Resp BP Pulse Ox 98.1 F 64 22 137/63 97 05/15/17 13:55 05/15/17 13:55 05/15/17 13:55 05/15/17 13:55 05/15/17 09:00 Intake & Output 05/12/17 05/13/17 05/14/17 05/15/17 23:59 23:59 23:59 23:59 Intake Total 600 1350 140 Output Total 1600 900 600 Balance -1000 450 -460 Weight 140 lb 149 lb 1 oz 149 lb 12.8 oz Gen: less tachypneic Heart: RRR Lung: bibasilar rales Abd: soft, nontender Ext: no edema CBC, BMP 05/14/17 06:00 05/14/17 05:00 Active Medications Acetaminophen (Tylenol -) 650 mg PO Q6H PRN PRN Reason: FEVER OR PAIN Last Admin: 05/14/17 20:06 Dose: 650 mg Albuterol/Ipratropium (Duoneb -) 1 amp NEB Q6H PRN PRN Reason: SHORTNESS OF BREATH Aspirin (Asa -) 81 mg PO DAILY [facility] Last Admin: 05/15/17 09:20 Dose: 81 mg Atorvastatin Calcium (Lipitor -) 20 mg PO HS [facility] Last Admin: 05/14/17 21:36 Dose: 20 mg Bacitracin/Polymyxin B Sulfate (Polysporin Ointment -) 1 applic TP DAILY [facility] Last Admin: 05/15/17 13:20 Dose: 1 applic Carvedilol (Coreg -) 12.5 mg PO BID [facility] Last Admin: 05/15/17 09:20 Dose: 12.5 mg Clonidine (Catapres -) 0.1 mg PO BID [facility] Last Admin: 05/15/17 09:20 Dose: 0.1 mg Clopidogrel Bisulfate (Plavix -) 75 mg PO DAILY [facility] Last Admin: 05/15/17 09:21 Dose: 75 mg Collagenase (Santyl -) 1 applic TP DAILY [facility] Last Admin: 05/15/17 13:20 Dose: 1 applic Docusate Sodium (Colace -) 300 mg PO HS [facility] Last Admin: 05/14/17 21:35 Dose: Not Given Hydralazine HCl (Apresoline -) 100 mg PO TID [facility] Last Admin: 05/15/17 13:19 Dose: 100 mg Piperacillin Sod/Tazobactam Sod (Zosyn 2.25gm Ivpb (Pre-Docked)) 50 mls @ 100 mls/hr IVPB Q8H-IV [facility] PRN Reason: Protocol Last Admin: 05/15/17 09:19 Dose: 100 mls/hr Insulin Aspart (Novolog Vial Sliding Scale -) 1 vial SQ ACHS [facility] PRN Reason: Protocol Last Admin: 05/15/17 13:19 Dose: Not Given Insulin Detemir (Levemir Vial) 15 units SQ [facility] Last Admin: 05/14/17 21:37 Dose: 15 units Isosorbide Dinitrate (Isoditrate Er) 40 mg PO BIDISORDIL [facility] Last Admin: 05/15/17 09:19 Dose: 40 mg Mirtazapine (Remeron -) 15 mg PO [facility] Last Admin: 05/14/17 21:36 Dose: 15 mg Mycophenolate Sodium (Mycophenolic Acid) 360 mg PO BID [facility] Last Admin: 05/15/17 09:21 Dose: 360 mg Prograf 1mg Capsule( (Pt Own Medication)) 1 each PO BID [facility] Last Admin: 05/15/17 13:20 Dose: 1 each Oxycodone HCl (Roxicodone -) 5 mg PO Q6H PRN PRN Reason: PAIN Last Admin: 05/14/17 20:05 Dose: 5 mg Prednisone (Deltasone -) 5 mg PO DAILY [facility] Last Admin: 05/15/17 09:21 Dose: 5 mg Senna (Senna -) 2 tab PO [facility] Last Admin: 05/14/17 21:36 Dose: 2 tab Tamsulosin HCl (Flomax -) 0.4 mg PO DAILY@0830 [facility] Last Admin: 05/15/17 09:20 Dose: 0.4 mg Torsemide (Demadex -) 40 mg PO DAILY [facility] Last Admin: 05/15/17 09:21 Dose: 40 mg Trazodone HCl (Desyrel -) 50 mg PO [facility] Last Admin: 05/14/17 21:35 Dose: 50 mg A/P Acute Hypoxic Respiratory Failure improved Acute on Chronic Systolic and Diastolic Heart Failure Pulmonary HTN ESRD s/p renal transplant +Troponins likely from above r/o Pneumonia - continue torsemide - monitor urine output, creatinine - on empiric antibiotics - f/u cultures - O2 to keep SpO2 >90% - repeat CXR in AM - aspiration precautions - DVT/GI prophylaxis
[2017-05-15 14:56] LABS: BASOPHIL 0.4 % (0-2.0); MCH 24.2 pg (25.7-33.7); MEAN CELL VOLUME 78.1 fl (80-96); MEAN PLT VOLUME 9.3 fl (7.5-11.1); NEUTROPHILS 86.1 % (42.8-82.8); PLATELET COUNT 86 K/MM3 (134-434); RDW 18.4 % (11.9-15.9); WHITE BLOOD COUNT 5.5 K/mm3 (4.0-10.0)
[2017-05-15 15:36] LABS: ALBUMIN 3.3 g/dl (3.4-5.0); ANION GAP 11 (8-16); CALCIUM 9.6 mg/dL (8.5-10.1); CO2 27 mmol/L (21-32); GLUCOSE,RANDOM 168 mg/dL (74-106)
[2017-05-15 15:39] LABS: ALK PHOS 219 U/L (45-117); BILIRUBIN,TOTAL 1.5 mg/dL (0.2-1.0); SGOT/AST 30 U/L (15-37); SGPT/ALT 28 U/L (12-78); TOT PROT 7.1 g/dl (6.4-8.2)
[2017-05-15 16:59] LABS: SODIUM,RANDOM URINE 30 MMOL/L
[2017-05-15] MEDS: traZODone HCL 50 MG TABLET (FP) PO SCH (21:32)
[2017-05-15] MEDS: ATORVASTATIN CA 20 MG TABLET (FP) PO SCH (21:33)
[2017-05-15] MEDS: ACETAMINOPHEN 325 MG TABLET (FP) PO PRN (21:33)
[2017-05-15] MEDS: SENNOSIDES 8.6MG TABLET (FP) PO SCH (21:33)
[2017-05-15] MEDS: oxyCODONE HCL 5 MG TABLET PO PRN (21:34)
[2017-05-15] MEDS: NIFEdipine E.R. 30 MG TABLET (FP) PO SCH (21:34)
[2017-05-15] MEDS: INSULIN DETEMIR 100 UNITS/ML MDV SQ SCH (21:35)
[2017-05-15] MEDS: MIRTAZAPINE 15 MG TABLET (FP) PO SCH (21:35)
[2017-05-15] MEDS: DOCUSATE SODIUM 100 MG CAPSULE (FP) PO SCH (21:42)
[2017-05-16] MEDS: PIPERACILLIN/TAZOB 2.25 GM 50 ML IVPB SCH ×2 (01:02→09:10)
[2017-05-16] MEDS: INSULIN SLIDING SCALE (NOVOLOG) 1 VIAL SQ SCH ×2 (06:57→11:49)
[2017-05-16] MEDS: hydrALAZINE HCL 50 MG TABLET (FP) PO SCH ×2 (06:58→14:30)
[2017-05-16] MEDS: NIFEdipine E.R. 30 MG TABLET (FP) PO SCH (09:10)
[2017-05-16] MEDS: TORSEMIDE 20 MG TABLET (FP) PO SCH (09:10)
[2017-05-16] MEDS: TAMSULOSIN HCL 0.4 MG CAP.ER.24H (FP) PO SCH (09:11)
[2017-05-16] MEDS: CARVEDILOL 12.5 MG TABLET (FP) PO SCH (09:11)
[2017-05-16] MEDS: CLOPIDOGREL BISULFATE 75 MG TABLET (FP) PO SCH (09:11)
[2017-05-16] MEDS: cloNIDine HCL 0.1 MG TABLET PO SCH (09:11)
[2017-05-16] MEDS: ASPIRIN 81 MG CHEWABLE TABLETS PO SCH (09:12)
[2017-05-16] MEDS: PROGRAF 1 MG PO SCH (09:12)
[2017-05-16] MEDS: predniSONE 5 MG TABLET (UD) PO SCH (09:13)
[2017-05-16] MEDS: ISOSORBIDE DINITRATE 40 MG PO SCH (09:13)
[2017-05-16] MEDS: ACETAMINOPHEN 325 MG TABLET (FP) PO PRN (09:27)
[2017-05-16] MEDS: oxyCODONE HCL 5 MG TABLET PO PRN (09:28)
[2017-05-16 09:41] VITALS: BP 150/71; TEMP 98.6
[2017-05-16] MEDS ORDERED: NIFEdipine E.R. 30 MG TABLET (FP) PO SCH (10:00)
[2017-05-16 10:25] VITALS: PULSE 56
[2017-05-16] MEDS: MYCOPHENOLATE SODIUM 360 MG TABLET.DR PO SCH (11:47)
--- NOTE | 2017-05-16 12:39 | DS ---
Physical Examination Vital Signs: Vital Signs Temperature 98.6 F 05/16/17 09:10 Pulse Rate 56 L 05/16/17 10:24 Respiratory Rate 19 05/16/17 09:10 Blood Pressure 150/71 05/16/17 09:10 O2 Sat by Pulse Oximetry (%) 94 L 05/16/17 10:24 Constitutional: Yes: No Distress Eyes: Yes: WNL HENT: Yes: WNL Neck: Yes: WNL Cardiovascular: Yes: WNL Respiratory: Yes: WNL Gastrointestinal: Yes: WNL Renal/: Yes: Other Musculoskeletal: Yes: Muscle Weakness Extremities: Yes: WNL Edema: No Peripheral Pulses WNL: Yes Integumentary: Yes: Rash Wound/Incision: Yes: Dressing Dry and Intact Neurological: Yes: Pre-Existing Deficit ...Motor Strength: LLE, RLE Psychiatric: Yes: Other Labs: CBC, BMP 05/15/17 14:00 05/15/17 14:00 Discharge Summary Reason For Visit: SHORTNESS OF BREATH Current Active Problems Hepatic congestion (Acute) Kidney transplant recipient (Acute) Metabolic encephalopathy (Acute) Sepsis (Acute) Shortness of breath (Acute) Procedures: Principal: BLOOD CULTURES Other Procedures: XRAYS Hospital Course: ADMITTED FOR SEPSIS/HYPOTENSION/AND DYSPNEA, TREATED WITH IV ABX, AND LEG WOUND CARE. AUGMENTIN 500MG BID 7 DAYS - Instructions Diet, Activity, Other Instructions: AUGMENTIN 500MG BID 7 DAYS RENAL DIET VASC SURGERY DR AMARO FOLLOW UP WOUND CARE TO LEGS Referrals: Ross Guillen [Primary Care Provider] - Disposition: INTERMEDIATE FACILITY - Home Medications Comprehensive Discharge Medication List: Ambulatory Orders Aspirin [Aspirin EC] 81 mg PO DAILY 03/05/15 Clonidine HCl 0.1 mg PO Q12H 03/05/15 Insulin (Levemir) [Levemir Flexpen -] 12 unit SQ HS 03/05/15 Prednisone [Deltasone -] 5 mg PO DAILY 03/05/15 Tacrolimus 5 mg PO BID 03/05/15 Tamsulosin HCl [Flomax -] 0.4 mg PO HS 03/05/15 Acetaminophen [Pain Relief] 650 mg PO Q6H PRN 05/12/17 Albuterol 0.083% Nebulizer Gisele [Ventolin 0.083% Nebulizer Soln -] 1 amp NEB BID 05/12/17 Atorvastatin Ca [Lipitor] 20 mg PO HS 05/12/17 Bacitracin - [Bacitracin Topical Ointment -] 1 applic TP [facility] 05/12/17 Carvedilol [Coreg] 25 mg PO Q12H 05/12/17 Clopidogrel Bisulfate [Plavix -] 75 mg PO DAILY 05/12/17 Collagenase Clostridium Hist. [Santyl -] 1 applic TP DAILY 05/12/17 Ferrous Sulfate 325 mg PO DAILY 05/12/17 Glucagon,Human Recombinant [Glucagon Emergency Kit] 1 mg IJ ASDIR 05/12/17 Hydralazine HCl 100 mg PO TID 05/12/17 Insulin Aspart [Novolog] 0 unit SQ AC PRN 05/12/17 Isosorbide Dinitrate [Dilatrate-Sr -] 40 mg PO TID 05/12/17 Lidocaine 1 each TP DAILY 05/12/17 Mirtazapine 15 mg PO HS 05/12/17 Mycophenolate Sodium [Mycophenolic Acid] 360 mg PO BID 05/12/17 Oxycodone HCl 5 mg PO Q6H PRN 05/12/17 Sennosides [Sen-O-Tab] 2 tab PO HS 05/12/17 Sodium Bicarbonate - 650 mg PO TID 05/12/17 Torsemide [Demadex] 60 mg PO BID 05/12/17 Trazodone HCl 50 mg PO HS 05/12/17
--- NOTE | 2017-05-16 13:24 | PN ---
Progress Note (short form) - Note Progress Note: PULMONARY/CCM Clinically unchanged. Denies shortness of breath or chest pain. No fevers recorded. Last Vital Signs Temp Pulse Resp BP Pulse Ox 98.6 F 56 L 19 150/71 94 L 05/16/17 09:10 05/16/17 10:24 05/16/17 09:10 05/16/17 09:10 05/16/17 10:24 Intake & Output 05/13/17 05/14/17 05/15/17 05/16/17 23:59 23:59 23:59 23:59 Intake Total 600 1350 390 900 Output Total 1600 900 650 380 Balance -1000 450 -260 520 Weight 149 lb 1 oz 149 lb 12.8 oz Gen: less tachypneic Heart: RRR Lung: bibasilar rales Abd: soft, nontender Ext: no edema CBC, BMP 05/15/17 14:00 05/15/17 14:00 Active Medications Acetaminophen (Tylenol -) 650 mg PO Q6H PRN PRN Reason: FEVER OR PAIN Last Admin: 05/16/17 09:27 Dose: 650 mg Albuterol/Ipratropium (Duoneb -) 1 amp NEB Q6H PRN PRN Reason: SHORTNESS OF BREATH Amoxicillin/Clavulanate Potassium (Augmentin - 500mg Tablet) 1 tab PO BID@0800, 1730 [facility] Aspirin (Asa -) 81 mg PO DAILY [facility] Last Admin: 05/16/17 09:12 Dose: 81 mg Atorvastatin Calcium (Lipitor -) 20 mg PO HS [facility] Last Admin: 05/15/17 21:33 Dose: 20 mg Bacitracin/Polymyxin B Sulfate (Polysporin Ointment -) 1 applic TP DAILY [facility] Last Admin: 05/15/17 13:20 Dose: 1 applic Carvedilol (Coreg -) 12.5 mg PO BID [facility] Last Admin: 05/16/17 09:11 Dose: 12.5 mg Clonidine (Catapres -) 0.1 mg PO BID [facility] Last Admin: 05/16/17 09:11 Dose: 0.1 mg Clopidogrel Bisulfate (Plavix -) 75 mg PO DAILY [facility] Last Admin: 05/16/17 09:11 Dose: 75 mg Collagenase (Santyl -) 1 applic TP DAILY [facility] Last Admin: 05/15/17 13:20 Dose: 1 applic Docusate Sodium (Colace -) 300 mg PO [facility] Last Admin: 05/15/17 21:42 Dose: Not Given Hydralazine HCl (Apresoline -) 100 mg PO TID [facility] Last Admin: 05/16/17 06:58 Dose: 100 mg Insulin Aspart (Novolog Vial Sliding Scale -) 1 vial SQ [facility] PRN Reason: Protocol Last Admin: 05/16/17 11:49 Dose: Not Given Insulin Detemir (Levemir Vial) 15 units SQ [facility] Last Admin: 05/15/17 21:35 Dose: 15 units Isosorbide Dinitrate (Isoditrate Er) 40 mg PO BIDISORDIL [facility] Last Admin: 05/16/17 09:13 Dose: 40 mg Mirtazapine (Remeron -) 15 mg PO HS [facility] Last Admin: 05/15/17 21:35 Dose: 15 mg Mycophenolate Sodium (Mycophenolic Acid) 360 mg PO BID [facility] Last Admin: 05/16/17 11:47 Dose: 360 mg Nifedipine (Procardia Xl -) 30 mg PO DAILY [facility] Last Admin: 05/16/17 09:10 Dose: 30 mg Prograf 1mg Capsule( (Pt Own Medication)) 1 each PO BID [facility] Last Admin: 05/16/17 09:12 Dose: 1 each Oxycodone HCl (Roxicodone -) 5 mg PO Q6H PRN PRN Reason: PAIN Last Admin: 05/16/17 09:28 Dose: 5 mg Prednisone (Deltasone -) 5 mg PO DAILY [facility] Last Admin: 05/16/17 09:13 Dose: 5 mg Senna (Senna -) 2 tab PO [facility] Last Admin: 05/15/17 21:33 Dose: 2 tab Tamsulosin HCl (Flomax -) 0.4 mg PO DAILY@0830 [facility] Last Admin: 05/16/17 09:11 Dose: 0.4 mg Torsemide (Demadex -) 40 mg PO DAILY [facility] Last Admin: 05/16/17 09:10 Dose: 40 mg Trazodone HCl (Desyrel -) 50 mg PO [facility] Last Admin: 05/15/17 21:32 Dose: 50 mg A/P Acute Hypoxic Respiratory Failure improved Acute on Chronic Systolic and Diastolic Heart Failure Pulmonary HTN ESRD s/p renal transplant +Troponins likely from above r/o Pneumonia - continue torsemide - monitor urine output, creatinine - on empiric antibiotics - f/u cultures - O2 to keep SpO2 >90% - aspiration precautions - DVT/GI prophylaxis
--- NOTE | 2017-05-16 13:27 | PN ---
Physical Exam: SUBJECTIVE: Patient seen and examined. He offers no complaints. Says he feels comfortable. Denies pain, SOB, chest pain, dizziness, abdominal discomfort, urinary symptoms, fevers, and headache. OBJECTIVE: Vital Signs Period Temp Pulse Resp BP Sys/Gonsalez Pulse Ox Last 24 Hr 98.1 F-98.6 F 56-74 18-22 137-171/63-83 94-98 GENERAL: Awake, alert, and fully oriented, in no acute distress. HEAD: Normal with no signs of trauma. EYES: Scleral anicteric EARS, NOSE, THROAT: Ears normal, nares patent, oropharynx clear without exudates. Moist mucous membranes. NECK: supple LUNGS: Breath sounds equal, clear to auscultation bilaterally. No wheezes, and no crackles. No accessory muscle use. HEART: sinus bradycardia, normal S1 and S2 without murmur, rub or gallop. ABDOMEN: soft, non-distended, normoactive bowel sounds, no guarding, no rebound , no masses. EXTREMITIES: 1cm ulcerated punched out lesion on right great toe without drainage, 5x6cm Left padron blister without drainage Laboratory Results - last 24 hr 05/15/17 05/15/17 05/15/17 14:00 14:00 15:00 WBC 5.5 D RBC 5.14 Hgb 12.5 Hct 40.1 MCV 78.1 L MCH 24.2 L MCHC 31.0 L RDW 18.4 H Plt Count 86 L MPV 9.3 D Neutrophils % 86.1 H Lymphocytes % 6.4 L D Monocytes % 6.1 Eosinophils % 1.0 D Basophils % 0.4 Sodium 137 Potassium 3.7 Chloride 99 Carbon Dioxide 27 Anion Gap 11 BUN 73 H Creatinine 2.0 H Creat Clearance w eGFR 32.82 POC Glucometer Random Glucose 168 H D Calcium 9.6 Total Bilirubin 1.5 H AST 30 ALT 28 Alkaline Phosphatase 219 H Total Protein 7.1 Albumin 3.3 L Ur Random Sodium 30 Ur Random Potassium 18.3 Ur Random Chloride < 10 Urine Creatinine 05/15/17 05/15/17 05/15/17 15:00 16:36 21:02 WBC RBC Hgb Hct MCV MCH MCHC RDW Plt Count MPV Neutrophils % Lymphocytes % Monocytes % Eosinophils % Basophils % Sodium Potassium Chloride Carbon Dioxide Anion Gap BUN Creatinine Creat Clearance w eGFR POC Glucometer 306.74929 343.77298 Random Glucose Calcium Total Bilirubin AST ALT Alkaline Phosphatase Total Protein Albumin Ur Random Sodium Ur Random Potassium Ur Random Chloride Urine Creatinine 53.2 05/16/17 05/16/17 05/16/17 06:35 07:48 11:46 WBC RBC Hgb Hct MCV MCH MCHC RDW Plt Count MPV Neutrophils % Lymphocytes % Monocytes % Eosinophils % Basophils % Sodium Potassium Chloride Carbon Dioxide Anion Gap BUN Creatinine Creat Clearance w eGFR POC Glucometer 54.33348 107.88410 [phone] Random Glucose Calcium Total Bilirubin AST ALT Alkaline Phosphatase Total Protein Albumin Ur Random Sodium Ur Random Potassium Ur Random Chloride Urine Creatinine Active Medications Generic Name Dose Route Start Last Admin Trade Name Freq PRN Reason Stop Dose Admin Acetaminophen 650 mg 05/13/17 19:24 05/16/17 09:27 Tylenol - PO 650 mg Q6H PRN Administration FEVER OR PAIN Albuterol/Ipratropium 1 amp 05/13/17 19:24 Duoneb - NEB Q6H PRN SHORTNESS OF BREATH Amoxicillin/Clavulanate Potassium 1 tab 05/16/17 17:30 Augmentin - 500mg Tablet PO BID@0800,1730 [facility] Aspirin 81 mg 05/14/17 10:00 05/16/17 09:12 Asa - PO 81 mg DAILY [facility] Administration Atorvastatin Calcium 20 mg 05/13/17 22:00 05/15/17 21:33 Lipitor - PO 20 mg HS [facility] Administration Bacitracin/Polymyxin B Sulfate 1 applic 05/14/17 12:00 05/15/17 13:20 Polysporin Ointment - TP 1 applic DAILY [facility] Administration Carvedilol 12.5 mg 05/13/17 22:00 05/16/17 09:11 Coreg - PO 12.5 mg BID [facility] Administration Clonidine 0.1 mg 05/13/17 22:00 05/16/17 09:11 Catapres - PO 0.1 mg BID [facility] Administration Clopidogrel Bisulfate 75 mg 05/14/17 10:00 05/16/17 09:11 Plavix - PO 75 mg DAILY [facility] Administration Collagenase 1 applic 05/14/17 10:00 05/15/17 13:20 Santyl - TP 1 applic DAILY [facility] Administration Docusate Sodium 300 mg 05/13/17 22:00 05/15/17 21:42 Colace - PO Not Given HS [facility] Hydralazine HCl 100 mg 05/13/17 22:00 05/16/17 06:58 Apresoline - PO 100 mg TID [facility] Administration Insulin Aspart 1 vial 05/13/17 22:00 05/16/17 11:49 Novolog Vial Sliding Scale - SQ Not Given [facility] Protocol Insulin Detemir 15 units 05/13/17 22:00 05/15/17 21:35 Levemir Vial SQ 15 units HS [facility] Administration Isosorbide Dinitrate 40 mg 05/14/17 10:00 05/16/17 09:13 Isoditrate Er PO 40 mg BIDISORDIL [facility] Administration Mirtazapine 15 mg 05/13/17 22:00 05/15/17 21:35 Remeron - PO 15 mg HS [facility] Administration Mycophenolate Sodium 360 mg 05/13/17 22:00 05/16/17 11:47 Mycophenolic Acid PO 360 mg BID [facility] Administration Nifedipine 30 mg 05/15/17 21:30 05/16/17 09:10 Procardia Xl - PO 30 mg DAILY [facility] Administration Prograf 1mg Capsule( 1 each 05/15/17 10:00 05/16/17 09:12 Pt Own Medication) PO 1 each BID [facility] Administration Oxycodone HCl 5 mg 05/13/17 19:24 05/16/17 09:28 Roxicodone - PO 5 mg Q6H PRN Administration PAIN Prednisone 5 mg 05/14/17 10:00 05/16/17 09:13 Deltasone - PO 5 mg DAILY [facility] Administration Senna 2 tab 05/13/17 22:00 05/15/17 21:33 Senna - PO 2 tab HS [facility] Administration Tamsulosin HCl 0.4 mg 05/14/17 08:30 05/16/17 09:11 Flomax - PO 0.4 mg DAILY@0830 [facility] Administration Torsemide 40 mg 05/14/17 10:00 05/16/17 09:10 Demadex - PO 40 mg DAILY [facility] Administration Trazodone HCl 50 mg 05/13/17 22:00 05/15/17 21:32 Desyrel - PO 50 mg HS [facility] Administration ASSESSMENT/PLAN: B/L PNA vs CHF -switch to PO Augmentin 500mg BID x 7 days -WBC improved Visit type - Emergency Visit Emergency Visit: Yes ED Registration Date: 05/12/17 Care time: The patient presented to the Emergency Department on the above date and was hospitalized for further evaluation of their emergent condition. - New Patient This patient is new to me today: No - Critical Care Critical Care patient: No
[2017-05-16] MEDS: BACITRACIN/POLYMYXIN B SULFATE 15 GM TUBE TP SCH (13:35)
--- NOTE | 2017-05-16 14:22 | PN ---
Progress Note, Physician Chief Complaint: Cardiology Follow up Mild dyspnea Telem NSR History of Present Illness: 76 M with ESRD sp Rtxp with CKD Cr 2.2, ischemic CM sp AICD, multiple heart failure admissions (last 03/2017 at [facility]) Last Echocardiogram 01/2017 EF 25 % with severe RV dysfunction. [facility] with dyspnea, hypoxia and hypoglycemia. CXR showed pulmonary vascular congestion and possibly PNA. Pt recived IV diuretic and emperic Abx. - Current Medication List Current Medications: Active Medications Acetaminophen (Tylenol -) 650 mg PO Q6H PRN PRN Reason: FEVER OR PAIN Last Admin: 05/16/17 09:27 Dose: 650 mg Albuterol/Ipratropium (Duoneb -) 1 amp NEB Q6H PRN PRN Reason: SHORTNESS OF BREATH Amoxicillin/Clavulanate Potassium (Augmentin - 500mg Tablet) 1 tab PO BID@0800, 1730 [facility] Aspirin (Asa -) 81 mg PO DAILY [facility] Last Admin: 05/16/17 09:12 Dose: 81 mg Atorvastatin Calcium (Lipitor -) 20 mg PO HS [facility] Last Admin: 05/15/17 21:33 Dose: 20 mg Bacitracin/Polymyxin B Sulfate (Polysporin Ointment -) 1 applic TP DAILY [facility] Last Admin: 05/15/17 13:20 Dose: 1 applic Carvedilol (Coreg -) 12.5 mg PO BID [facility] Last Admin: 05/16/17 09:11 Dose: 12.5 mg Clonidine (Catapres -) 0.1 mg PO BID [facility] Last Admin: 05/16/17 09:11 Dose: 0.1 mg Clopidogrel Bisulfate (Plavix -) 75 mg PO DAILY [facility] Last Admin: 05/16/17 09:11 Dose: 75 mg Collagenase (Santyl -) 1 applic TP DAILY [facility] Last Admin: 05/15/17 13:20 Dose: 1 applic Docusate Sodium (Colace -) 300 mg PO HS [facility] Last Admin: 05/15/17 21:42 Dose: Not Given Hydralazine HCl (Apresoline -) 100 mg PO TID [facility] Last Admin: 05/16/17 06:58 Dose: 100 mg Insulin Aspart (Novolog Vial Sliding Scale -) 1 vial SQ [facility] PRN Reason: Protocol Last Admin: 05/16/17 11:49 Dose: Not Given Insulin Detemir (Levemir Vial) 15 units SQ HS [facility] Last Admin: 05/15/17 21:35 Dose: 15 units Isosorbide Dinitrate (Isoditrate Er) 40 mg PO BIDISORDIL [facility] Last Admin: 05/16/17 09:13 Dose: 40 mg Mirtazapine (Remeron -) 15 mg PO HS [facility] Last Admin: 05/15/17 21:35 Dose: 15 mg Mycophenolate Sodium (Mycophenolic Acid) 360 mg PO BID [facility] Last Admin: 05/16/17 11:47 Dose: 360 mg Nifedipine (Procardia Xl -) 30 mg PO DAILY [facility] Last Admin: 05/16/17 09:10 Dose: 30 mg Prograf 1mg Capsule( (Pt Own Medication)) 1 each PO BID [facility] Last Admin: 05/16/17 09:12 Dose: 1 each Oxycodone HCl (Roxicodone -) 5 mg PO Q6H PRN PRN Reason: PAIN Last Admin: 05/16/17 09:28 Dose: 5 mg Prednisone (Deltasone -) 5 mg PO DAILY [facility] Last Admin: 05/16/17 09:13 Dose: 5 mg Senna (Senna -) 2 tab PO [facility] Last Admin: 05/15/17 21:33 Dose: 2 tab Tamsulosin HCl (Flomax -) 0.4 mg PO DAILY@0830 [facility] Last Admin: 05/16/17 09:11 Dose: 0.4 mg Torsemide (Demadex -) 40 mg PO DAILY [facility] Last Admin: 05/16/17 09:10 Dose: 40 mg Trazodone HCl (Desyrel -) 50 mg PO [facility] Last Admin: 05/15/17 21:32 Dose: 50 mg - Objective Vital Signs: Vital Signs Temperature 98.6 F 05/16/17 09:10 Pulse Rate 56 L 05/16/17 10:24 Respiratory Rate 19 05/16/17 09:10 Blood Pressure 150/71 05/16/17 09:10 O2 Sat by Pulse Oximetry (%) 94 L 05/16/17 10:24 Constitutional: Yes: Calm, Thin Eyes: Yes: Conjunctiva Clear, EOM Intact HENT: Yes: Atraumatic, Normocephalic Neck: Yes: Supple, Trachea Midline Cardiovascular: Yes: Regular Rate and Rhythm, JVD Respiratory: Yes: Diminished, Rales Gastrointestinal: Yes: Normal Bowel Sounds, Soft Edema: No Labs: CBC, BMP 05/15/17 14:00 05/15/17 14:00 INR, PTT INR 1.36 (0.82-1.09) H 05/14/17 06:00 - ....Imaging Chest X-ray: Report Reviewed Problem List - Problems (1) Shortness of breath Code(s): R06.02 - SHORTNESS OF BREATH (2) Systolic CHF Code(s): I50.20 - UNSPECIFIED SYSTOLIC (CONGESTIVE) HEART FAILURE (3) HTN (hypertension) Code(s): I10 - ESSENTIAL (PRIMARY) HYPERTENSION Assessment/Plan 76 yo with severe ischemic CM and EF 25%, severe RV dysfunction (prophylactic AICD). Recurrent heart failure admissions in the past and is admitted with hypoxia and hypoglycemia. Possibly PNA with acute on chronic heart failure. His CXR form today suggests increased pulmonary vascular congestion. Increase Torsemide 40mg BID.
--- NOTE | 2017-05-16 14:38 | PN ---
Teaching Attending Note Name of Resident: Sunshine Li ATTENDING PHYSICIAN STATEMENT I saw and evaluated the patient. I reviewed the resident's note and discussed the case with the resident. I agree with the resident's findings and plan as documented. SUBJECTIVE: More awake and alert No complaints Denies chest pain/ dyspnea/ cough No c/o fever/ chills OBJECTIVE: Cor S1S2 crepitations, bases Abdomen soft, non tender ASSESSMENT AND PLAN: B/L pneumonia v. CHF- improved +BC- contaminant CKD/ Renal transplant DM Clinically improved Substitute augmentin 500mg po bid x 7d
[2017-05-16] MEDS ORDERED: AMOX TR/POT CLAV 500MG/125MG TABLETS (FP) PO SCH (17:30)
== END 2017-05-16 15:02 | DRG 193 ==
LOC: JER 12:10 → JERBED 14:54 → JICU 20:41 → J2W 05-13 19:50
PROVIDERS: ADMIT Family Medicine; ATTEND Family Medicine
DX: J18.9 Pneumonia, unspecified organism (principal); J96.01 Acute respiratory failure with hypoxia; I50.43 Acute on chronic combined systolic (congestive) and diastolic (congestive) heart failure; G93.41 Metabolic encephalopathy; I13.0 Hypertensive heart and chronic kidney disease with heart failure and stage 1 through stage 4 chronic kidney disease, or unspecified chronic kidney disease; Z94.0 Kidney transplant status; N17.9 Acute kidney failure, unspecified; R18.8 Other ascites; E11.22 Type 2 diabetes mellitus with diabetic chronic kidney disease; N18.9 Chronic kidney disease, unspecified; E78.5 Hyperlipidemia, unspecified; I25.5 Ischemic cardiomyopathy; I27.2 Other secondary pulmonary hypertension; I25.10 Atherosclerotic heart disease of native coronary artery without angina pectoris; Z87.891 Personal history of nicotine dependence; N40.0 Benign prostatic hyperplasia without lower urinary tract symptoms; F32.9 Major depressive disorder, single episode, unspecified; K76.0 Fatty (change of) liver, not elsewhere classified; Z79.4 Long term (current) use of insulin
CPT/HCPCS: 36415; 36600; 71010-TC; 76700-TC; 76776-TC; 80053; 80197; 81003; 82436; 82570; 82803; 83605; 83690; 83735; 83880; 84100; 84133; 84300; 84443; 84484; 85025; 85027; 85610; 85730; 87040; 87086; 87186; 87899; 93005; 93010; 93306-TC; 93976; 99285-25; G0480

== ENCOUNTER 2017-05-31 13:46 | Inpatient (IN) | payer OTHER ==
--- NOTE | 2017-05-31 14:14 | PDOC ---
Attending Attestation - HPI HPI: 05/31/17 14:50 The patient is a 76 year old male from [facility], with a significant past medical history of renal failure s/p left sided kidney transplant, HTN, HLD, IDDM, CHF who presents to the emergency department for evaluation of AMS. As per EMS, patients BG was significantly low and was not reading. Subsequently, 2 amps of Dextrose was administered via IV. Upon arrival to the ED, patients BG was 279 however patient was increasingly lethargic. He denies chest pain, headache or dizziness. He denies fever, chills, abdominal pain, nausea, vomit, diarrhea or constipation. He denies dysuria, frequency, urgency or hematuria. Allergies: NKA Past surgical history:triple bypass surgery Social history: None PCP: Dr. Patel - Medical Decision Making 05/31/17 16:[address] Patel via phone answering service. Dr. Rivas bindery leadperson. Awaiting call back. 05/31/17 16:[address] Rice via phone answering service. Awaiting call back. 05/31/17 16:[address] Patel via phone answering service. 05/31/17 16:38 Dr. Patel returned the page and the patient;s case was discussed. Patient admitted to ICU. Dr. Rivas accepting admission. 05/31/17 17:[address] Rice via phone answering service. Awaiting call back. Documentation prepared by Roxy Rosales, acting as medical coordinator pesticide use for Cass Schmid MD <Roxy Rosales - Last Filed: 05/31/17 17:05> - Resident Resident Name: Joe Post - ED Attending Attestation I have performed the following: I have examined & evaluated the patient, The case was reviewed & discussed with the resident, I agree w/resident's findings & plan, Exceptions are as noted - Physicial Exam PE: GENERAL: Awake, lethargic, in obvious respiratory distress. HEAD: No signs of trauma EYES: PERRLA, EOMI, sclera anicteric, conjunctiva clear ENT: Auricles normal inspection, hearing grossly normal, nares patent, oropharynx clear without exudates. Moist mucosa NECK: Normal ROM, supple, no lymphadenopathy, JVD, or masses LUNGS: Tachypneic, diffuse exp wheezes, diffuse crackles. HEART: Regular rate and rhythm, normal S1 and S2, no murmurs, rubs or gallops. Well-healed midline sternotomy scar. ABDOMEN: Soft, mildly distended, normoactive bowel sounds. No guarding, no rebound. No masses EXTREMITIES: Normal range of motion, no edema. LUE AV fistula +thrill. No clubbing or cyanosis. No cords, erythema, or tenderness NEUROLOGICAL: Moving all extremities. SKIN: Warm, Dry, normal turgor. 4cm x 2cm healing lesion to L padron. 1cm x1cm healing lesion to R anterior knee. R great toe with ulcerated lesion, no active drainage. - Medical Decision Making 05/31/17 17:22 Pt presented in respiratory distress, tachypneic with crackles in the lungs B/ L. He was found to have low BGM by EMS, given D50. In ED, he is hypothermic and tachypneic, appears septic and fluid-overloaded. Sepsis protocol was initiated on patient arrival, given broad spectrum abx. No obvious source on UA/CXR. Cultures pending. Discussed with Dr. Rice. Patient is s/p renal transplant, rising creatinine, but appears fluid overloaded. Will give lasix as per Dr. Rice. <Cass Schmid - Last Filed: 06/01/17 07:28>
[2017-05-31] MEDS ORDERED: VANCOMYCIN 1,000 MG in DEXTROSE 5%-WATER - 250 ML IVPB ONE (14:16)
[2017-05-31] MEDS ORDERED: PIPERACILLIN/TAZOB 3.375 GM 3.375 GM in DEXTROSE 5%-WATER - 50 ML IVPB ONE (14:16)
[2017-05-31 14:40] LABS: BASOPHIL 0.4 % (0-2.0); EOSINOPHIL 0.2 % (0-4.5); MCH 24.8 pg (25.7-33.7); MCHC 31.1 g/dl (32.0-35.9); MEAN CELL VOLUME 79.7 fl (80-96); MEAN PLT VOLUME 9.3 fl (7.5-11.1); WHITE BLOOD COUNT 5.7 K/mm3 (4.0-10.0)
[2017-05-31 14:43] LABS: VENOUS BLOOD GAS HCO3 22.7 meq/L (19-25)
[2017-05-31 14:46] LABS: VENOUS PH 7.22 (7.32-7.42)
[2017-05-31 14:52] LABS: URINE APPEARANCE CLOUDY; URINE BILIRUBIN NEGATIVE (NEGATIVE); URINE BLOOD 1+ (NEGATIVE); URINE COLOR AMBER; URINE GLUCOSE (UA) NEGATIVE (NEGATIVE); URINE KETONE NEGATIVE (NEGATIVE); URINE LEUK ESTERASE NEGATIVE (NEGATIVE); URINE NITRITE NEGATIVE (NEGATIVE); URINE PROTEIN 1+ (NEGATIVE); URINE UROBILINOGEN 4.0 E.U/dl mg/dL (0.2-1.0)
[2017-05-31] MEDS ORDERED: PIPERACILLIN/TAZOB 3.375 GM 50 ML IVPB ONE (14:57)
[2017-05-31 15:03] LABS: INR 1.87 (0.82-1.09); PROTHROMBIN TIME (PATIENT) 20.8 SEC (9.98-11.88)
[2017-05-31 15:05] LABS: ACTIVATED PTT 36.6 SECONDS (26.9-34.4)
--- NOTE | 2017-05-31 15:05 | PDOC ---
History of Present Illness - History of Present Illness Initial Comments: 05/31/17 15:06 76 yo M with h/o HTN, HLD, DMI, CHF, and left kidney transplant who arrives EMS with AMS. Per EMS report pt. was slightly unarousable and responding to painful stimulation. His blood glucose low and he received 2 amps of IV dextrose. In ED. pt BS 279 and responsive to painful stimuli. Patient denying any asx. chest pain, fevers/chills, urinary complaints, or GI complaints. <Joe Post - Last Filed: 05/31/17 17:56> <Cass Schmid - Last Filed: 06/01/17 07:30> - General Chief Complaint: Altered Mental Status Stated Complaint: HYPERGLYCEMIA Time Seen by Provider: 05/31/17 14:00 Past History - Past Medical History Diabetes: Yes Disorders: Yes (bph, uti,) HTN: Yes Liver Disease: Yes Suicide Attempt (Hx): No - Surgical History Cardiac Surgery: Yes - Psycho/Social/Smoking Cessation Hx Suicidal Ideation: No Smoking History: Unknown if ever smoked Have you smoked in the past 12 months: No If you are a former smoker, when did you quit?: 12 years Information on smoking cessation initiated: No Hx Alcohol Use: No Drug/Substance Use Hx: No Substance Use Type: Alcohol <Joe Post - Last Filed: 05/31/17 17:56> <Cass Schmid - Last Filed: 06/01/17 07:30> - Past Medical History Allergies/Adverse Reactions: Allergies Allergy/AdvReac Type Severity Reaction Status Date / Time No Known Allergies Allergy Verified 03/04/15 23:02 Home Medications: Ambulatory Orders Clonidine HCl 0.1 mg PO Q12H 03/05/15 Tacrolimus 5 mg PO BID 03/05/15 Tamsulosin HCl [Flomax -] 0.4 mg PO HS 03/05/15 Albuterol 0.083% Nebulizer Gisele [Ventolin 0.083% Nebulizer Soln -] 1 amp NEB BID 05/12/17 Collagenase Clostridium Hist. [Santyl -] 1 applic TP DAILY 05/12/17 Ferrous Sulfate 325 mg PO DAILY 05/12/17 Glucagon,Human Recombinant [Glucagon Emergency Kit] 1 mg IJ ASDIR 05/12/17 Isosorbide Dinitrate [Dilatrate-Sr -] 40 mg PO TID 05/12/17 Lidocaine 1 each TP DAILY 05/12/17 Mirtazapine 15 mg PO HS 05/12/17 Mycophenolate Sodium [Mycophenolic Acid] 360 mg PO BID 05/12/17 Oxycodone HCl 5 mg PO Q6H PRN 05/12/17 Sennosides [Sen-O-Tab] 2 tab PO HS 05/12/17 Trazodone HCl 50 mg PO HS 05/12/17 Acetaminophen [Tylenol .Regular Strength -] 650 mg PO Q6H PRN #0 tablet Albuterol 2.5/Ipratropium 0.5 [Duoneb -] 1 amp NEB Q6H PRN #0 amp 05/16/17 Aspirin [ASA -] 81 mg PO DAILY tab.chew 05/16/17 Atorvastatin Ca [Lipitor] 20 mg PO HS tablet 05/16/17 Bacitracin/Polymyxin Ointment [Polysporin Ointment -] 1 applic TP DAILY tube Carvedilol [Coreg -] 12.5 mg PO BID tablet 05/16/17 Clopidogrel Bisulfate [Plavix -] 75 mg PO DAILY tablet 05/16/17 Hydralazine HCl [Apresoline -] 100 mg PO TID tablet 05/16/17 Insulin (Levemir) [Levemir Vial] 15 units SQ HS ml 05/16/17 Insulin Sliding Scale [Novolog Vial Sliding Scale -] 1 vial SQ ACHS units 05/16 Nifedipine ER [Procardia XL -] 30 mg PO DAILY #30 tab 05/16/17 Prednisone [Deltasone -] 5 mg PO DAILY tablet 05/16/17 Torsemide [Demadex -] 40 mg PO DAILY tablet 05/16/17 Lactobacillus Acidophilus [Acidophilus] 1 each PO DAILY 05/31/17 Vancomycin [Vancocin] 1,000 mg IV DAILY 05/31/17 *Physical Exam - Vital Signs Last Vital Signs Temp Pulse Resp BP Pulse Ox 94.0 F L 51 L 16 155/91 100 05/31/17 14:46 05/31/17 14:46 05/31/17 14:46 05/31/17 14:46 05/31/17 14:54 - Physical Exam Comments: 05/31/17 15:13 GENERAL: Pt. not alert or oriented. HEAD: No signs of trauma, normocephalic, atraumatic EYES: PERRLA, EOMI, sclera anicteric, conjunctiva clear ENT: Auricles normal inspection, hearing grossly normal, nares patent, oropharynx clear without exudates. Moist mucosa NECK: Normal ROM, supple, no lymphadenopathy, JVD, or masses LUNGS: In distress, with audible grunting. HEART: Regular rate and rhythm, normal S1 and S2, no murmurs, rubs or gallops, peripheral pulses normal and equal bilaterally. ABDOMEN: Soft, nontender, normoactive bowel sounds. No guarding, no rebound. No masses EXTREMITIES: Normal inspection, Normal range of motion, no edema. No clubbing or cyanosis. NEUROLOGICAL: Cranial nerves II through XII grossly intact. SKIN:+ right tarsal nonhealing ulcer 1 x 1 cm. Right and left lower extremity healing ulcer. 2 x 2 cm on left anterior leg. Warm, Dry, normal turgor, no rashes or lesions noted. <Joe Post - Last Filed: 05/31/17 17:56> - Vital Signs Last Vital Signs Temp Pulse Resp BP Pulse Ox 95.8 F L 62 16 164/89 96 05/31/17 16:36 05/31/17 16:36 05/31/17 16:36 05/31/17 16:36 05/31/17 16:36 <Cass Schmid - Last Filed: 06/01/17 07:30> Heart Score/ECG Review - History History: Slightly suspicious - Electrocardiogram EKG: Non specific repolarization disturbance - Age Age: >/= 65 - Risk Factors Risk Factors Heart Score: Yes Hx Hypercholesterolemia, Yes Hx Hypertension, Yes Hx Diabetes Based on the list above the patient has:: >/=3 risk factors or Hx atherosclerotic disease - Troponin Troponin: 1-3x normal limit - Score Heart Score - Total: 6 - ST and T Non Specific ST-T Wave changes: Yes - ECG Impressions Bradycardia: Yes Heart Block: 1st Degree Block(>20mils) <Joe Post - Last Filed: 05/31/17 17:56> ED Treatment Course - LABORATORY CBC & Chemistry Diagram: 05/31/17 14:15 05/31/17 14:15 - ADDITIONAL ORDERS Additional order review: Laboratory Results 05/31/17 05/31/17 05/31/17 14:45 14:40 13:53 VBG pH 7.22 L* POC VBG pCO2 56.6 H POC VBG pO2 48.6 H Mixed VBG HCO3 22.7 POC Glucometer [phone] Urine Color Grace Urine Appearance Cloudy Urine pH 5.0 Urine Protein 1+ H Urine Glucose (UA) Negative Urine Ketones Negative Urine Blood 1+ H Urine Nitrite Negative Urine Bilirubin Negative Urine Urobilinogen 4.0 e.u/dl Ur Leukocyte Esterase Negative 05/31/17 05/31/17 14:15 13:53 RBC 5.18 MCV 79.7 L MCHC 31.1 L RDW 20.0 H MPV 9.3 Neutrophils % 81.0 Lymphocytes % 8.0 D Monocytes % 10.4 H Eosinophils % 0.2 Basophils % 0.4 POC Glucometer [phone] - Medications Given in the ED: ED Medications Discontinued Medications Generic Name Dose Route Start Last Admin Trade Name Freq PRN Reason Stop Dose Admin Piperacillin Sod/Tazobactam 50 mls @ 100 mls/hr 05/31/17 14:16 05/31/17 14:54 Sod 3.375 gm/ Dextrose IVPB 05/31/17 14:45 100 mls/hr ONCE ONE Administration Protocol <Joe Post - Last Filed: 05/31/17 17:56> - LABORATORY CBC & Chemistry Diagram: 06/01/17 05:20 06/01/17 05:20 - ADDITIONAL ORDERS Additional order review: Laboratory Results 05/31/17 05/31/17 05/31/17 15:45 14:46 14:46 INR PTT (Actin FS) Puncture Site Md puncture ABG pH 7.33 L ABG pCO2 at Pt Temp 40.9 ABG pO2 at Pt Temp 67.5 L ABG HCO3 21.2 L ABG O2 Sat (Measured) 91.2 ABG O2 Content 15.2 ABG Base Excess -3.9 L Herminio Test Not applicable VBG pH POC VBG pCO2 POC VBG pO2 Mixed VBG HCO3 Oxygen Flow Rate 30% Vent Mode St Vent Rate 12 Mechanical Rate Bipap PEEP 0.0 Pressure Support Vent 10/5 Sodium Potassium Chloride Carbon Dioxide Anion Gap BUN Creatinine Creat Clearance w eGFR POC Glucometer Random Glucose Lactic Acid 1.3 Calcium Total Bilirubin AST ALT Alkaline Phosphatase Creatine Kinase Creatine Kinase Index CK-MB (CK-2) Troponin I Total Protein Albumin Urine Color Urine Appearance Urine pH Urine Protein Urine Glucose (UA) Urine Ketones Urine Blood Urine Nitrite Urine Bilirubin Urine Urobilinogen Ur Leukocyte Esterase Urine RBC Urine WBC Ur Epithelial Cells Hyaline Casts Urine Mucus Blood Type O POSITIVE Antibody Screen Negative 05/31/17 05/31/17 05/31/17 14:45 14:40 14:15 INR PTT (Actin FS) Puncture Site ABG pH ABG pCO2 at Pt Temp ABG pO2 at Pt Temp ABG HCO3 ABG O2 Sat (Measured) ABG O2 Content ABG Base Excess Hemrinio Test VBG pH 7.22 L* POC VBG pCO2 56.6 H POC VBG pO2 48.6 H Mixed VBG HCO3 22.7 Oxygen Flow Rate Vent Mode Vent Rate Mechanical Rate PEEP Pressure Support Vent Sodium Potassium Chloride Carbon Dioxide Anion Gap BUN Creatinine Creat Clearance w eGFR POC Glucometer Random Glucose Lactic Acid 1.0 Calcium Total Bilirubin AST ALT Alkaline Phosphatase Creatine Kinase Creatine Kinase Index CK-MB (CK-2) Troponin I Total Protein Albumin Urine Color Grace Urine Appearance Cloudy Urine pH 5.0 Urine Protein 1+ H Urine Glucose (UA) Negative Urine Ketones Negative Urine Blood 1+ H Urine Nitrite Negative Urine Bilirubin Negative Urine Urobilinogen 4.0 e.u/dl Ur Leukocyte Esterase Negative Urine RBC <1 Urine WBC <1 Ur Epithelial Cells Rare Hyaline Casts 54 Urine Mucus Rare Blood Type Antibody Screen 05/31/17 05/31/17 05/31/17 14:15 14:15 13:53 INR 1.87 H D PTT (Actin FS) 36.6 H Puncture Site ABG pH ABG pCO2 at Pt Temp ABG pO2 at Pt Temp ABG HCO3 ABG O2 Sat (Measured) ABG O2 Content ABG Base Excess Herminio Test VBG pH POC VBG pCO2 POC VBG pO2 Mixed VBG HCO3 Oxygen Flow Rate Vent Mode Vent Rate Mechanical Rate PEEP Pressure Support Vent Sodium 139 Potassium 5.5 H D Chloride 104 Carbon Dioxide 23 Anion Gap 12 BUN 98 H D Creatinine 3.8 H D Creat Clearance w eGFR 15.65 POC Glucometer [phone] Random Glucose 171 H Lactic Acid Calcium 9.0 Total Bilirubin 2.1 H D AST 53 H D ALT 32 Alkaline Phosphatase 212 H Creatine Kinase 201 Creatine Kinase Index 6.4 H* CK-MB (CK-2) 13.018 H Troponin I 0.09 H Total Protein 6.5 Albumin 3.3 L Urine Color Urine Appearance Urine pH Urine Protein Urine Glucose (UA) Urine Ketones Urine Blood Urine Nitrite Urine Bilirubin Urine Urobilinogen Ur Leukocyte Esterase Urine RBC Urine WBC Ur Epithelial Cells Hyaline Casts Urine Mucus Blood Type Antibody Screen 05/31/17 05/31/17 14:15 13:53 RBC 5.18 MCV 79.7 L MCHC 31.1 L RDW 20.0 H MPV 9.3 Neutrophils % 81.0 Lymphocytes % 8.0 D Monocytes % 10.4 H Eosinophils % 0.2 Basophils % 0.4 POC Glucometer [phone] - RADIOLOGY Radiology Studies Ordered: Category Date Time Status CHEST X-RAY PORTABLE* [RAD] Stat Radiology 05/31/17 14:15 Completed - Medications Given in the ED: ED Medications Discontinued Medications Generic Name Dose Route Start Last Admin Trade Name Freq PRN Reason Stop Dose Admin Vancomycin HCl 1,000 mg/ 250 mls @ 200 mls/hr 05/31/17 14:16 05/31/17 14:54 Dextrose IVPB 05/31/17 15:30 200 mls/hr ONCE ONE Administration Piperacillin Sod/Tazobactam 50 mls @ 100 mls/hr 05/31/17 14:16 05/31/17 14:54 Sod 3.375 gm/ Dextrose IVPB 05/31/17 14:45 100 mls/hr ONCE ONE Administration Protocol <Cass Schmid - Last Filed: 06/01/17 07:30> Medical Decision Making - Medical Decision Making 05/31/17 15:33 76 yo M with h/o HTN, HLD, DMI, CHF, and left kidney transplant, who arrives EMS with AMS.with 2/4 SIRS criteria temp of 94.0, P 32. and unspecified source of infection. Per EMS report pt. was slightly unarousable and responding to painful stimulation. His blood glucose low and he received 2 amps of IV dextrose. In ED. pt BS 279 and responsive to painful stimuli. Physical exam unremarkable ED course: CBC, CMP, VBG, 05/31/17 15:45 VBG: Ph 7.2, 56.6 pco2, 48.6 o2 BIPAP ( ) AB.33/67.5/40.9 05/31/17 16:27 CXR: Unremarkable UA: Neg 05/31/17 16:27 CK Index: 6.4 Trop: 0.09 EK05/31/17 16:28 Heart Score 4-6 . 13 % MACE risk Admit ICU <Joe Post - Last Filed: 05/31/17 17:56> - Critical Care Time Total Critical Care Time (minutes): 45 Critical Care Statement: The care of this patient involved high complexity decision making to prevent further life threatening deterioration of the patient 's condition and/or to evaluate & treat vital organ system(s) failure or risk of failure. <Cass Schmid - Last Filed: 06/01/17 07:30> *DC/Admit/Observation/Transfer <Joe Post - Last Filed: 05/31/17 17:56> - Discharge Dispostion Admit: Yes <Cass Schmid - Last Filed: 06/01/17 07:30> Diagnosis at time of Disposition: Shortness of breath Sepsis Qualifiers: Sepsis type: sepsis due to unspecified organism Qualified Code(s): A41.9 - Sepsis, unspecified organism Hypothermia Qualifiers: Encounter type: initial encounter Qualified Code(s): T68.XXXA - Hypothermia, initial encounter - Discharge Dispostion Condition at time of disposition: Critical - Referrals
[2017-05-31 15:10] LABS: URINE HYALINE CAST 54 /lpf; URINE MUCUS RARE; URINE RBC <1 /hpf (0-3); URINE WBC <1 /hpf (3-5)
[2017-05-31 15:10] LABS: ALBUMIN 3.3 g/dl (3.4-5.0); ANION GAP 12 (8-16); BILIRUBIN,TOTAL 2.1 mg/dL (0.2-1.0); CO2 23 mmol/L (21-32); CREATININE 3.8 mg/dL (0.7-1.3); GLUCOSE,RANDOM 171 mg/dL (74-106); SGOT/AST 53 U/L (15-37); SGPT/ALT 32 U/L (12-78); TOT PROT 6.5 g/dl (6.4-8.2)
[2017-05-31 15:12] LABS: ALK PHOS 212 U/L (45-117); CPK 201 IU/L (39-308); TROPONIN I 0.09 ng/ml (0.00-0.05)
[2017-05-31 15:25] LABS: PLATELET COMMENT2 NO CLOTTING DETECTED; PLATELET COUNT 48 K/MM3 (134-434); PLATELET ESTIMATE DECREASED (NORMAL)
[2017-05-31 15:53] LABS: ARTERIAL BLD GAS O2 SATURATION 91.2 % (90-98.9); ARTERIAL BLOOD GAS BASE EXCESS -3.9 meq/l (-2-2); ARTERIAL BLOOD GAS HCO3 21.2 meq/L (22-26)
[2017-05-31 15:54] LABS: ARTERIAL BLOOD GAS PO2 67.5 mmHg (70-100); ARTERIAL BLOOD GAS pH 7.33 (7.35-7.45); LPM/O2% 30%; MECH. VENT. BIPAP; PT. ON O2? YES; VENT RATE 12
[2017-05-31] MEDS ORDERED: FUROSEMIDE 40 MG/4 ML INJECTABLE VIAL IVPUSH ONE ×2 (17:21→19:54)
[2017-05-31] MEDS ORDERED: FUROSEMIDE 40 MG/4 ML INJECTABLE VIAL ONE (17:34)
--- NOTE | 2017-05-31 19:43 | CONSULT ---
Consult Consult Specialty:: Pulm/CCM Reason for Consultation:: AMS, hypoglycemia, ABNER, HCAP - History of Present Illness History of Present Illness: This is a 76 yo man with pmhx significant for ESRD s/p left sided kidney transplant (unk baseline Cr,on MMF, Tacro and Pred), triple bypass surgery, HTN , HLD, IDDM, CHF s/p AICD who receives most of his care at [facility], who today presented to the emergency department with hypoglycemia. [place] where he resides apparently called EMS for low finger stick. He received D50 x2 w/ repeat blood sugar to 279. He was recently admitted to [facility] for similar indications (hypoglycemia/HCAP/ABNER). In the ED patient lethargic. VBG w/ acidosis. Patient placed on BIPAP and AB.33/41/67. Labs significant for BUN/ SCr: 98/3.8 which is up from his last admission (73/2.0). He was treated with zosyn/vanc for possible HCAP given CXR: increased consolidation in RML/RLL and hypothermia (94.0). Patient transferred to ICu given BiPAP needs. In ICU patient remains lethargic/obtunded (non verbal). Repeat ABG: pending - History Source History Provided By: Medical Record Limitations to Obtaining History: Unresponsive - Past Medical History Cardio/Vascular: Yes: CAD, CHF, HTN Renal/: Yes: Renal Failure (S/P renal transplant), Other (kidney transplant) Endocrine: Yes: Diabetes Mellitus - Past Surgical History Past Surgical History: Yes: AV Fistula/Graft (Left), CABG, Kidney Transplant ( Left) - Alcohol/Substance Use Hx Alcohol Use: No History of Substance Use: reports: Marijuana Date of Last Use: 02/20/83 - Smoking History Smoking history: Unknown if ever smoked Have you smoked in the past 12 months: No If you are a former smoker, when did you quit?: 12 years - Social History Usual Living Arrangement: Half-Way ADL: Independent Occupation: Retired- line construction supervisor History of Recent Travel: No Home Medications - Allergies Allergies/Adverse Reactions: Allergies Allergy/AdvReac Type Severity Reaction Status Date / Time No Known Allergies Allergy Verified 03/04/15 23:02 - Home Medications Home Medications: Ambulatory Orders Clonidine HCl 0.1 mg PO Q12H 03/05/15 Tacrolimus 5 mg PO BID 03/05/15 Tamsulosin HCl [Flomax -] 0.4 mg PO HS 03/05/15 Albuterol 0.083% Nebulizer Gisele [Ventolin 0.083% Nebulizer Soln -] 1 amp NEB BID 05/12/17 Collagenase Clostridium Hist. [Santyl -] 1 applic TP DAILY 05/12/17 Ferrous Sulfate 325 mg PO DAILY 05/12/17 Glucagon,Human Recombinant [Glucagon Emergency Kit] 1 mg IJ ASDIR 05/12/17 Isosorbide Dinitrate [Dilatrate-Sr -] 40 mg PO TID 05/12/17 Lidocaine 1 each TP DAILY 05/12/17 Mirtazapine 15 mg PO HS 05/12/17 Mycophenolate Sodium [Mycophenolic Acid] 360 mg PO BID 05/12/17 Oxycodone HCl 5 mg PO Q6H PRN 05/12/17 Sennosides [Sen-O-Tab] 2 tab PO HS 05/12/17 Trazodone HCl 50 mg PO HS 05/12/17 Acetaminophen [Tylenol .Regular Strength -] 650 mg PO Q6H PRN #0 tablet Albuterol 2.5/Ipratropium 0.5 [Duoneb -] 1 amp NEB Q6H PRN #0 amp 05/16/17 Aspirin [ASA -] 81 mg PO DAILY tab.chew 05/16/17 Atorvastatin Ca [Lipitor] 20 mg PO HS tablet 05/16/17 Bacitracin/Polymyxin Ointment [Polysporin Ointment -] 1 applic TP DAILY tube Carvedilol [Coreg -] 12.5 mg PO BID tablet 05/16/17 Clopidogrel Bisulfate [Plavix -] 75 mg PO DAILY tablet 05/16/17 Hydralazine HCl [Apresoline -] 100 mg PO TID tablet 05/16/17 Insulin (Levemir) [Levemir Vial] 15 units SQ HS ml 05/16/17 Insulin Sliding Scale [Novolog Vial Sliding Scale -] 1 vial SQ ACHS units 05/16 Nifedipine ER [Procardia XL -] 30 mg PO DAILY #30 tab 05/16/17 Prednisone [Deltasone -] 5 mg PO DAILY tablet 05/16/17 Torsemide [Demadex -] 40 mg PO DAILY tablet 05/16/17 Lactobacillus Acidophilus [Acidophilus] 1 each PO DAILY 05/31/17 Vancomycin [Vancocin] 1,000 mg IV DAILY 05/31/17 Family Disease History - Family Disease History Family History: Unable to Obtain Review of Systems Unable to obtain ROS, reason: unable to obtain Physical Exam Vital Signs: Vital Signs Temperature 97.9 F 05/31/17 18:25 Pulse Rate 60 05/31/17 18:25 Respiratory Rate 32 H 05/31/17 18:25 Blood Pressure 157/86 05/31/17 18:25 O2 Sat by Pulse Oximetry (%) 99 05/31/17 18:25 Current Medications Heparin Sodium (Porcine) (Heparin -) 5,000 unit SQ TID LULU Piperacillin Sod/Tazobactam Sod (Zosyn 3.375gm Ivpb (Pre-Docked)) 3.375 gm IVPB Q8H-IV LULU PRN Reason: Protocol Constitutional: Yes: Cachectic Cardiovascular: Yes: S1, S2 Respiratory: Yes: Diminished, Rales, Rhonchi Gastrointestinal: Yes: Soft Extremities: Yes: Cool, Other (dopplerable pulses bilater feet) Edema: LLE: Trace, RLE: Trace Neurological: Yes: Lethargy (mumbles to questions) Labs: CBCD WBC 5.7 K/mm3 (4.0-10.0) 05/31/17 14:15 RBC 5.18 M/mm3 (4.00-5.60) 05/31/17 14:15 Hgb 12.8 GM/dL (11.7-16.9) 05/31/17 14:15 Hct 41.3 % (35.4-49) 05/31/17 14:15 MCV 79.7 fl (80-96) L 05/31/17 14:15 MCHC 31.1 g/dl (32.0-35.9) L 05/31/17 14:15 RDW 20.0 % (11.9-15.9) H 05/31/17 14:15 Plt Count 48 K/MM3 (134-434) L D 05/31/17 14:15 MPV 9.3 fl (7.5-11.1) 05/31/17 14:15 CMP Sodium 139 mmol/L (136-145) 05/31/17 14:15 Potassium 5.5 mmol/L (3.5-5.1) H D 05/31/17 14:15 Chloride 104 mmol/L (98-107) 05/31/17 14:15 Carbon Dioxide 23 mmol/L (21-32) 05/31/17 14:15 Anion Gap 12 (8-16) 05/31/17 14:15 BUN 98 mg/dL (7-18) H D 05/31/17 14:15 Creatinine 3.8 mg/dL (0.7-1.3) H D 05/31/17 14:15 Creat Clearance w eGFR 15.65 (>60) 05/31/17 14:15 Random Glucose 171 mg/dL (74-106) H 05/31/17 14:15 Calcium 9.0 mg/dL (8.5-10.1) 05/31/17 14:15 Total Bilirubin 2.1 mg/dL (0.2-1.0) H D 05/31/17 14:15 AST 53 U/L (15-37) H D 05/31/17 14:15 ALT 32 U/L (12-78) 05/31/17 14:15 Alkaline Phosphatase 212 U/L (45-117) H 05/31/17 14:15 Total Protein 6.5 g/dl (6.4-8.2) 05/31/17 14:15 Albumin 3.3 g/dl (3.4-5.0) L 05/31/17 14:15 CARDIAC ENZYMES Creatine Kinase 201 IU/L (39-308) 05/31/17 14:15 Troponin I 0.09 ng/ml (0.00-0.05) H 05/31/17 14:15 ABG Results ABG pH 7.33 (7.35-7.45) L 05/31/17 15:45 ABG pCO2 at Pt Temp 40.9 mmHg (35-45) 05/31/17 15:45 ABG pO2 at Pt Temp 67.5 mmHg (70-100) L 05/31/17 15:45 ABG HCO3 21.2 meq/L (22-26) L 05/31/17 15:45 ABG O2 Sat (Measured) 91.2 % (90-98.9) 05/31/17 15:45 ABG O2 Content 15.2 % vol (15-22) 05/31/17 15:45 ABG Base Excess -3.9 meq/l (-2-2) L 05/31/17 15:45 Imaging - Results Chest X-ray: Report Reviewed, Image Reviewed EKG: Report Reviewed, Image Reviewed Problem List - Problems (1) Hypothermia Code(s): T68.XXXA - HYPOTHERMIA, INITIAL ENCOUNTER Qualifiers: Encounter type: initial encounter Qualified Code(s): T68.XXXA - Hypothermia, initial encounter (2) Sepsis Code(s): A41.9 - SEPSIS, UNSPECIFIED ORGANISM Qualifiers: Sepsis type: sepsis due to unspecified organism Qualified Code(s): A41.9 - Sepsis, unspecified organism (3) Shortness of breath Code(s): R06.02 - SHORTNESS OF BREATH (4) Hepatic congestion Code(s): K76.1 - CHRONIC PASSIVE CONGESTION OF LIVER (5) Kidney transplant recipient Code(s): Z94.0 - KIDNEY TRANSPLANT STATUS (6) Metabolic encephalopathy Code(s): G93.41 - METABOLIC ENCEPHALOPATHY (7) Systolic CHF Code(s): I50.20 - UNSPECIFIED SYSTOLIC (CONGESTIVE) HEART FAILURE (8) Diabetes mellitus Code(s): E11.9 - TYPE 2 DIABETES MELLITUS WITHOUT COMPLICATIONS (9) Renal failure, chronic Code(s): N18.9 - CHRONIC KIDNEY DISEASE, UNSPECIFIED Assessment/Plan A/ 76 y/o man with ESRD s/p renal transplant, CHF (EF 44%, LVH) s/p AICD, HTN, IDDM, HL p/w weakness and hypoglycemia found to have pulm edema vs PNA, acute on (likely) chronic CKD P/ Pulm: bilateral R > L infiltrates likely pulm edema, also c/f HAP -goal diuresis for goal out 1L -HCAP coverage -BiPAP as needed may require intubation for airway protection if mental status does not improve -Fio2 as needed -daily CXR CV: CHF (EF 44%, LVH), now with signs of poor forward flow -diuresis, may need inotrope -check trop x 3, - BNP is not useful due to renal failure -daily EKG ABNER: acute on chronic ABNER, SCr: 2 months ago, suspect due to heart failure vs rejection vs ATN from sepsis -Renal Consult -Trial of lasix for goal net out -AMS may be related to uremia vs sepsis -check tacro level in am (is send out) -immunosupression per renal: will given solu-medrol 40mg q8hr ID: PNA--> HCAP -Vanco by level -Pip/Hai -sput cxl if possible Prophy: SQH, PPI Boerem ACNP Pulm/CCM CCT: 35m
[2017-05-31] MEDS: methylPREDNISolone NA SUCC 40 MG/1 ML VIAL IVPB SCH (20:30)
[2017-05-31] MEDS: TACROLIMUS ANHYDROUS 5 MG CAPSULE (NF) PO SCH (21:56)
[2017-05-31] MEDS: HEPARIN NA (PORCINE) 5,000 UNITS/ML 1ML VIAL SQ SCH (21:56)
[2017-05-31] MEDS ORDERED: MYCOPHENOLATE SODIUM 360 MG TABLET.DR PO SCH (22:00)
[2017-05-31] MEDS ORDERED: HALOPERIDOL LACTATE 5 MG/ML IM PRN (22:13)
[2017-05-31] MEDS ORDERED: hydrALAZINE HCL 20 MG/ML VIAL IM PRN (22:15)
[2017-05-31] MEDS ORDERED: hydrALAZINE HCL 20 MG/ML VIAL IM SCH (22:15)
[2017-06-01] MEDS ORDERED: PIPERACILLIN/TAZOB 3.375 GM/50 ML PRE-DOCKED IVPB SCH (02:00)
[2017-06-01] MEDS: methylPREDNISolone NA SUCC 40 MG/1 ML VIAL IVPB SCH ×3 (02:00→17:40)
[2017-06-01] MEDS ORDERED: DEXTROSE 50%-WATER 50 ML DISP.SYRIN ONE (02:29)
[2017-06-01] MEDS ORDERED: PT OWN MED DRAWER 7, Y5N ONE ×4 (03:06→22:07)
[2017-06-01] MEDS ORDERED: PIPERACILLIN/TAZOB 3.375 GM/50 ML PRE-DOCKED IVPB ONE (03:15)
[2017-06-01] MEDS: DEXTROSE 10%-WATER - 1,000 ML IV SCH (03:28)
[2017-06-01] MEDS: HEPARIN NA (PORCINE) 5,000 UNITS/ML 1ML VIAL SQ SCH ×3 (06:14→22:19)
[2017-06-01 06:18] LABS: MCH 25.6 pg (25.7-33.7); MCHC 32.2 g/dl (32.0-35.9); MEAN CELL VOLUME 79.5 fl (80-96); MEAN PLT VOLUME 11.5 fl (7.5-11.1); PLATELET COUNT 71 K/MM3 (134-434); RDW 20.1 % (11.9-15.9); WHITE BLOOD COUNT 8.4 K/mm3 (4.0-10.0)
[2017-06-01 06:43] LABS: ALBUMIN 3.5 g/dl (3.4-5.0); ANION GAP 14 (8-16); CALCIUM 9.7 mg/dL (8.5-10.1); CO2 20 mmol/L (21-32); GLUCOSE,RANDOM 60 mg/dL (74-106)
[2017-06-01 06:46] LABS: ALK PHOS 225 U/L (45-117); BILIRUBIN,DIRECT 1.7 mg/dL (0.0-0.2); BILIRUBIN,TOTAL 2.5 mg/dL (0.2-1.0); PHOSPHOROUS 6.9 mg/dL (2.5-4.9); SGOT/AST 61 U/L (15-37); SGPT/ALT 34 U/L (12-78)
[2017-06-01] MEDS ORDERED: FUROSEMIDE 40 MG/4 ML INJECTABLE VIAL IVPUSH ONE (08:04)
[2017-06-01 08:34] LABS: ARTERIAL BLD GAS O2 SATURATION 83.3 % (90-98.9); ARTERIAL BLOOD GAS BASE EXCESS -5.9 meq/l (-2-2); ARTERIAL BLOOD GAS HCO3 17.4 meq/L (22-26); ARTERIAL BLOOD GAS pH 7.39 (7.35-7.45)
[2017-06-01 08:36] LABS: ALLENS TEST POSITIVE; ART PUNCT SITE RIGHT RADIAL; ARTERIAL BLOOD GAS PO2 48.7 mmHg (70-100); LPM/O2% 30%; MECH. VENT. BIPAP; PT. ON O2? YES; TYPE OF O2 OT; VENT RATE 12
--- NOTE | 2017-06-01 08:58 | PN ---
Progress Note (short form) - Note Progress Note: PULM/CCM Pt seen and examined in the ICU 24Hr: -admitted yesterday, on NIV with poor mental status -BP stable on PT/TANYA Bustamante to see today -BGL stable on D-10 -possible HD today, some urine output with lasix but hyperkalemic Vital Signs Temp 97.5 F L 06/01/17 06:00 Pulse 58 L 06/01/17 06:00 Resp 18 06/01/17 06:00 BP 156/74 06/01/17 06:00 Pulse Ox 100 05/31/17 23:05 Intake & Output 05/31/17 05/31/17 06/01/17 11:59 23:59 11:59 Intake Total 350 175 Output Total 280 350 Balance 70 -175 Weight 72.3 kg 72.756 kg Intake: IV 75 D10w - 1,000 ml @ 25 mls/ 75 hr IV ASDIR LULU Rx#: [id number] IVPB 350 100 Output: Urine 280 350 Davila 280 350 Other: Voiding Method Indwelling Catheter Height 5 ft 8 in Body Mass Index (BMI) 24.2 Weight Measurement Method [facility] in [facility] Built in [facility] Weight Measurement Method Estimated by Staff JAS PEACOCK 06/01/17 05:20 06/01/17 05:20 Current Medications Haloperidol (Haldol Injection (Fast Acting) -) 5 mg IM Q4H PRN PRN Reason: AGITATION Heparin Sodium (Porcine) (Heparin -) 5,000 unit SQ TID LULU Last Admin: 06/01/17 06:14 Dose: 5,000 unit Hydralazine HCl (Apresoline Injection -) 10 mg IVPUSH Q8H PRN PRN Reason: Hypertension SBP >180 Dextrose (D10w -) 1,000 mls @ 25 mls/hr IV ASDIR LULU Last Admin: 06/01/17 03:28 Dose: 25 mls/hr Methylprednisolone Sodium Succinate (Solu-Medrol -) 40 mg IVPB Q8H-IV LULU Last Admin: 06/01/17 02:00 Dose: 40 mg Mycophenolate Sodium (Mycophenolic Acid) 360 mg PO BID LULU Last Admin: 05/31/17 21:56 Dose: 360 mg Piperacillin Sod/Tazobactam Sod (Zosyn 3.375gm Ivpb (Pre-Docked)) 3.375 gm IVPB Q8H-IV LULU PRN Reason: Protocol Tacrolimus (Prograf (Non Formulary)) 5 mg PO BID LULU Last Admin: 05/31/17 21:56 Dose: 5 mg CXL -blood and urine negative todate Constitutional: Yes: Cachectic, chronically ill appearing Cardiovascular: Yes: S1, S2 Respiratory: Yes: Diminished, Rales, Rhonchi R> L Gastrointestinal: Yes: Soft Extremities: Yes: Cool, Other (dopplerable pulses bilater feet), LUE + thrill/ pulse Edema: LLE: Trace, RLE: Trace Neurological: Yes: does not track, withdrawals to pain bilaterally Imaging - Results Chest X-ray: Report Reviewed, Image Reviewed EKG: Report Reviewed, Image Reviewed Problem List - Problems (1) Hypothermia Code(s): T68.XXXA - HYPOTHERMIA, INITIAL ENCOUNTER Qualifiers: Encounter type: initial encounter Qualified Code(s): T68.XXXA - Hypothermia, initial encounter (2) Sepsis Code(s): A41.9 - SEPSIS, UNSPECIFIED ORGANISM Qualifiers: Sepsis type: sepsis due to unspecified organism Qualified Code(s): A41.9 - Sepsis, unspecified organism (3) Shortness of breath Code(s): R06.02 - SHORTNESS OF BREATH (4) Hepatic congestion Code(s): K76.1 - CHRONIC PASSIVE CONGESTION OF LIVER (5) Kidney transplant recipient Code(s): Z94.0 - KIDNEY TRANSPLANT STATUS (6) Metabolic encephalopathy Code(s): G93.41 - METABOLIC ENCEPHALOPATHY (7) Systolic CHF Code(s): I50.20 - UNSPECIFIED SYSTOLIC (CONGESTIVE) HEART FAILURE (8) Diabetes mellitus Code(s): E11.9 - TYPE 2 DIABETES MELLITUS WITHOUT COMPLICATIONS (9) Renal failure, chronic Code(s): N18.9 - CHRONIC KIDNEY DISEASE, UNSPECIFIED Assessment/Plan A/ 76 y/o man with ESRD s/p renal transplant, CHF (EF 44%, LVH) s/p AICD, HTN, IDDM, HL p/w weakness and hypoglycemia found to have pulm edema vs PNA, acute on (likely) chronic CKD P/ Pulm: bilateral R > L infiltrates likely pulm edema, also c/f HAP -goal diuresis for goal out 1L -HAP coverage, ID to see today -intubated for airway protection -Fio2 as needed -daily CXR CV: CHF (EF 44%, LVH), now with signs of poor forward flow -diuresis, may need inotrope -check trop x 3, - BNP is not useful due to renal failure -daily EKG ABNER: acute on chronic ABNER, SCr: 2 months ago, suspect due to heart failure vs rejection vs ATN from sepsis -Renal Consult -Trial of lasix for goal net out -AMS may be related to uremia vs sepsis -check tacro level in am (is send out) -immunosupression per renal: will give solu-medrol 40mg q8hr -will need oral access for MMF, Tacro etc. ID: PNA--> HCAP -Vanco by level, am level pending. -Pip/Hai -sput cxl if possible, trach aspirate post intubation if necessary Neuro: altered, uremic and septic encephalopathy, at risk for PRESS (tacro) -reeval after HD -CT head if remains altered Prophy: SQH, PPI Bryan Olguin ACNP [id number] 35m CCT
[2017-06-01] MEDS ORDERED: PROPOFOL 200 MG/20 ML VIAL IVPUSH ONE (09:27)
[2017-06-01] MEDS ORDERED: PROPOFOL 100 ML IVPB SCH (09:30)
--- NOTE | 2017-06-01 09:37 | HP ---
Admitting History and Physical - Admission History of Present Illness: 76 yo man with pmhx significant for ESRD s/p left sided kidney transplant (unk baseline Cr,on MMF, Tacro and Pred), triple bypass surgery, HTN, HLD, IDDM, CHF s/p AICD who receives most of his care at [facility], who today presented to the emergency department with hypoglycemia. [facility] where he resides apparently called EMS for low finger stick. He received D50 x2 w/ repeat blood sugar to 279. He was recently admitted to [facility] for similar indications (hypoglycemia/HCAP/ ABNER). In the ED patient lethargic. VBG w/ acidosis. Patient placed on BIPAP - Past Medical History Cardiovascular: Yes: CAD, CHF, HTN Renal/: Yes: Renal Failure (S/P renal transplant), Other (kidney transplant) Endocrine: Yes: Diabetes Mellitus - Past Surgical History Past Surgical History: Yes: AV Fistula/Graft (Left), CABG, Kidney Transplant ( Left) - Smoking History Smoking history: Unknown if ever smoked Have you smoked in the past 12 months: No If you are a former smoker, when did you quit?: 12 years - Alcohol/Substance Use Hx Alcohol Use: No History of Substance Use: reports: Marijuana Date of Last Use: 02/20/83 - Social History ADL: Independent Occupation: Retired- construction driver History of Recent Travel: No Home Medications - Allergies Allergies/Adverse Reactions: Allergies Allergy/AdvReac Type Severity Reaction Status Date / Time No Known Allergies Allergy Verified 03/04/15 23:02 - Home Medications Home Medications: Ambulatory Orders Clonidine HCl 0.1 mg PO Q12H 03/05/15 Tacrolimus 5 mg PO BID 03/05/15 Tamsulosin HCl [Flomax -] 0.4 mg PO HS 03/05/15 Albuterol 0.083% Nebulizer Gisele [Ventolin 0.083% Nebulizer Soln -] 1 amp NEB BID 05/12/17 Collagenase Clostridium Hist. [Santyl -] 1 applic TP DAILY 05/12/17 Ferrous Sulfate 325 mg PO DAILY 05/12/17 Glucagon,Human Recombinant [Glucagon Emergency Kit] 1 mg IJ ASDIR 05/12/17 Isosorbide Dinitrate [Dilatrate-Sr -] 40 mg PO TID 05/12/17 Lidocaine 1 each TP DAILY 05/12/17 Mirtazapine 15 mg PO HS 05/12/17 Mycophenolate Sodium [Mycophenolic Acid] 360 mg PO BID 05/12/17 Oxycodone HCl 5 mg PO Q6H PRN 05/12/17 Sennosides [Sen-O-Tab] 2 tab PO HS 05/12/17 Trazodone HCl 50 mg PO HS 05/12/17 Acetaminophen [Tylenol .Regular Strength -] 650 mg PO Q6H PRN #0 tablet Albuterol 2.5/Ipratropium 0.5 [Duoneb -] 1 amp NEB Q6H PRN #0 amp 05/16/17 Aspirin [ASA -] 81 mg PO DAILY tab.chew 05/16/17 Atorvastatin Ca [Lipitor] 20 mg PO HS tablet 05/16/17 Bacitracin/Polymyxin Ointment [Polysporin Ointment -] 1 applic TP DAILY tube Carvedilol [Coreg -] 12.5 mg PO BID tablet 05/16/17 Clopidogrel Bisulfate [Plavix -] 75 mg PO DAILY tablet 05/16/17 Hydralazine HCl [Apresoline -] 100 mg PO TID tablet 05/16/17 Insulin (Levemir) [Levemir Vial] 15 units SQ HS ml 05/16/17 Insulin Sliding Scale [Novolog Vial Sliding Scale -] 1 vial SQ ACHS units 05/16 Nifedipine ER [Procardia XL -] 30 mg PO DAILY #30 tab 05/16/17 Prednisone [Deltasone -] 5 mg PO DAILY tablet 05/16/17 Torsemide [Demadex -] 40 mg PO DAILY tablet 05/16/17 Lactobacillus Acidophilus [Acidophilus] 1 each PO DAILY 05/31/17 Vancomycin [Vancocin] 1,000 mg IV DAILY 05/31/17 Review of Systems - Review of Systems Constitutional: reports: Lethargy Physical Examination Vital Signs: Vital Signs Temperature 97.5 F L 06/01/17 06:00 Pulse Rate 58 L 06/01/17 06:00 Respiratory Rate 18 06/01/17 06:00 Blood Pressure 156/74 06/01/17 06:00 O2 Sat by Pulse Oximetry (%) 100 05/31/17 23:05 Cardiovascular: Yes: S1, S2 Respiratory: Yes: On BiPap, Tachypnea Gastrointestinal: Yes: Normal Bowel Sounds, Soft Edema: No Neurological: Yes: Lethargy Labs: CBC, BMP 06/01/17 05:20 06/01/17 05:20 Imaging - Results X-ray: Report Reviewed Problem List - Problems (1) Sepsis Assessment/Plan: probably due to pneumonia zosyn id consult Code(s): A41.9 - SEPSIS, UNSPECIFIED ORGANISM Qualifiers: Sepsis type: sepsis due to unspecified organism Qualified Code(s): A41.9 - Sepsis, unspecified organism (2) Kidney transplant recipient Assessment/Plan: Laboratory Tests 06/01/17 05:20 BUN 104 H Creatinine 4.0 H possible rejection renal on board for transfer once stabilized Code(s): Z94.0 - KIDNEY TRANSPLANT STATUS (3) Systolic CHF Assessment/Plan: dialyze Code(s): I50.20 - UNSPECIFIED SYSTOLIC (CONGESTIVE) HEART FAILURE (4) Diabetes mellitus Assessment/Plan: bgm Code(s): E11.9 - TYPE 2 DIABETES MELLITUS WITHOUT COMPLICATIONS (5) Renal failure, chronic Assessment/Plan: dialyze Code(s): N18.9 - CHRONIC KIDNEY DISEASE, UNSPECIFIED (6) Respiratory failure Assessment/Plan: on bipap--to be intubated Code(s): J96.90 - RESPIRATORY FAILURE, UNSP, UNSP W HYPOXIA OR HYPERCAPNIA (7) Thrombocytopenia Assessment/Plan: Laboratory Tests 05/31/17 06/01/17 14:15 05:20 Plt Count 48 L D 71 L D monitor on heparin Code(s): D69.6 - THROMBOCYTOPENIA, UNSPECIFIED
[2017-06-01 09:46] VITALS: BMI 24.3
--- NOTE | 2017-06-01 09:46 | CON.NEP ---
Consult Consult Specialty:: nephrology Reason for Consultation:: abner r/o rejection - History of Present Illness Chief Complaint: ams/hypoglycemia - History Source History Provided By: Medical Record Limitations to Obtaining History: Clinical Condition - Past Medical History Cardio/Vascular: Yes: CAD, CHF, HTN Renal/: Yes: Renal Failure (S/P renal transplant), Other (kidney transplant) Endocrine: Yes: Diabetes Mellitus - Past Surgical History Past Surgical History: Yes: AV Fistula/Graft (Left), CABG, Kidney Transplant ( Left) - Alcohol/Substance Use Hx Alcohol Use: No History of Substance Use: reports: Marijuana Date of Last Use: 02/20/83 - Smoking History Smoking history: Unknown if ever smoked Have you smoked in the past 12 months: No If you are a former smoker, when did you quit?: 12 years - Social History Usual Living Arrangement: [facility] ADL: Independent Occupation: Retired- construction engineer History of Recent Travel: No Home Medications - Allergies Allergies/Adverse Reactions: Allergies Allergy/AdvReac Type Severity Reaction Status Date / Time No Known Allergies Allergy Verified 03/04/15 23:02 - Home Medications Home Medications: Ambulatory Orders Clonidine HCl 0.1 mg PO Q12H 03/05/15 Tacrolimus 5 mg PO BID 03/05/15 Tamsulosin HCl [Flomax -] 0.4 mg PO HS 03/05/15 Albuterol 0.083% Nebulizer Gisele [Ventolin 0.083% Nebulizer Soln -] 1 amp NEB BID 05/12/17 Collagenase Clostridium Hist. [Santyl -] 1 applic TP DAILY 05/12/17 Ferrous Sulfate 325 mg PO DAILY 05/12/17 Glucagon,Human Recombinant [Glucagon Emergency Kit] 1 mg IJ ASDIR 05/12/17 Isosorbide Dinitrate [Dilatrate-Sr -] 40 mg PO TID 05/12/17 Lidocaine 1 each TP DAILY 05/12/17 Mirtazapine 15 mg PO HS 05/12/17 Mycophenolate Sodium [Mycophenolic Acid] 360 mg PO BID 05/12/17 Oxycodone HCl 5 mg PO Q6H PRN 05/12/17 Sennosides [Sen-O-Tab] 2 tab PO HS 05/12/17 Trazodone HCl 50 mg PO HS 05/12/17 Acetaminophen [Tylenol .Regular Strength -] 650 mg PO Q6H PRN #0 tablet Albuterol 2.5/Ipratropium 0.5 [Duoneb -] 1 amp NEB Q6H PRN #0 amp 05/16/17 Aspirin [ASA -] 81 mg PO DAILY tab.chew 05/16/17 Atorvastatin Ca [Lipitor] 20 mg PO HS tablet 05/16/17 Bacitracin/Polymyxin Ointment [Polysporin Ointment -] 1 applic TP DAILY tube Carvedilol [Coreg -] 12.5 mg PO BID tablet 05/16/17 Clopidogrel Bisulfate [Plavix -] 75 mg PO DAILY tablet 05/16/17 Hydralazine HCl [Apresoline -] 100 mg PO TID tablet 05/16/17 Insulin (Levemir) [Levemir Vial] 15 units SQ HS ml 05/16/17 Insulin Sliding Scale [Novolog Vial Sliding Scale -] 1 vial SQ ACHS units 05/16 Nifedipine ER [Procardia XL -] 30 mg PO DAILY #30 tab 05/16/17 Prednisone [Deltasone -] 5 mg PO DAILY tablet 05/16/17 Torsemide [Demadex -] 40 mg PO DAILY tablet 05/16/17 Lactobacillus Acidophilus [Acidophilus] 1 each PO DAILY 05/31/17 Vancomycin [Vancocin] 1,000 mg IV DAILY 05/31/17 Review of Systems Unable to obtain ROS, reason: unresponsive Nephrology Consult - Height Height: 5 ft 8 in - Weight Weight: 160 lb 6.4 oz - BMI Body Mass Index (BMI): 24.3 - Lab Results CBC,BMP: CBC, BMP 06/01/17 05:20 06/01/17 05:20 Anion Gap: Anion Gap Anion Gap 14 (8-16) 06/01/17 05:20 - Imaging Chest X-ray: Report Reviewed (bilateral infiltrates) - Physical Examination Vital Signs: Vital Signs Temperature 97.5 F L 06/01/17 06:00 Pulse Rate 60 06/01/17 09:36 Respiratory Rate 18 06/01/17 09:36 Blood Pressure 167/88 06/01/17 09:36 O2 Sat by Pulse Oximetry (%) 100 05/31/17 23:05 Constitutional: Yes: Well Nourished Eyes: Yes: Conjunctiva Clear HENT: Yes: Atraumatic, Normocephalic Neck: Yes: Supple, Trachea Midline Cardiovascular: Yes: Regular Rate and Rhythm. No: Rub Respiratory: Yes: Diminished, On BiPap Gastrointestinal: Yes: Normal Bowel Sounds Musculoskeletal: Yes: WNL Extremities: Yes: WNL Edema: No Neurological: Yes: Unresponsive Psychiatric: Yes: Other (unresponsive) Assessment/Plan IMPRESSION ABNER- atn vs rejection pulmonary infiltrates dm/htn h/o renal transplant h/o CABG AMS ?uremia vs infectious process PLAN will dialyze continue tacrolimus, hold mmf obtain urine sodium and creatinine broad spectrum antibiotics, would rule out PCP steroids as anti rejection. Should be transferred to tertiary care center would give tacro via ngt tacrolimus level MV
--- NOTE | 2017-06-01 09:47 | EKG ---
Test Reason : Blood Pressure : / mmHG Vent. Rate : 051 BPM Atrial Rate : 051 BPM P-R Int : 226 ms QRS Dur : 102 ms QT Int : 486 ms P-R-T Axes : 049 118 240 degrees QTc Int : 447 ms POOR DATA QUALITY, INTERPRETATION MAY BE ADVERSELY AFFECTED SINUS BRADYCARDIA WITH 1ST DEGREE A-V BLOCK POSSIBLE LEFT ATRIAL ENLARGEMENT POSSIBLE LATERAL INFARCT , AGE UNDETERMINED ABNORMAL ECG Confirmed by MD RADHA, CHERYL ([id number]) on 06/01/2017 9:47:37 AM Referred By: Confirmed By:CHERYL GARCIA MD
--- NOTE | 2017-06-01 09:53 | PROC ---
Intubation - Intubation Reason for Intubation: Respiratory Failure, Airway Protection Time of Intubation: 09:52 Intubation Method: orotracheal Blade used: Mac Tube Size (cm): 7.5 Tube position @ lip (cm): 21 Tube position confirmed by: Direct visualization, CO2 detector, Breath sounds Breath Sounds after Intubation: equal Post Intubation Xray: Yes (ordered)
[2017-06-01] MEDS ORDERED: predniSONE 5 MG TABLET (UD) PO SCH (10:00)
--- NOTE | 2017-06-01 11:47 | PN ---
Progress Note (short form) - Note Progress Note: ID Consult dictated Multiorgan failure Respiratory failure HCAP v. 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
[2017-06-01] MEDS ORDERED: VANCOMYCIN 1,000 MG in SODIUM CHLORIDE 250 ML IVPB ONE (13:00)
[2017-06-01] MEDS ORDERED: HEMOQUE TEST 1 EACH EACH ONE ×2 (13:43→22:44)
[2017-06-01] MEDS: PIPERACILLIN/TAZOB 2.25 GM 50 ML IVPB SCH ×2 (14:42→17:40)
[2017-06-01] MEDS: CHLORHEXIDINE GLUCONATE 0.12% 15ML CUP MM SCH ×2 (14:44→22:19)
[2017-06-01] MEDS: TACROLIMUS ANHYDROUS 5 MG CAPSULE (NF) PO SCH ×2 (14:48→22:31)
--- NOTE | 2017-06-01 15:44 | CONS ---
DATE OF CONSULTATION: DATE OF DICTATION: 06/01/2017 The patient is a 76-year-old male with a history of renal transplant, on immunosuppressive therapy, evaluated for sepsis. History was obtained from the chart as he is presently intubated in the intensive care unit. [facility] a [facility]. [facility] was noted at the [facility] to be increasingly lethargic. He was also hypothermic. EMS was called. He was found to be hypoglycemic. He received dextrose. In the emergency room, the patient was lethargic, became increasingly short of breath, and was noted to be hypothermic. He was transferred to the intensive care unit and hospital course has been complicated by respiratory failure requiring intubation and worsening renal failure requiring hemodialysis. He is presently receiving hemodialysis in the ICU. He is awake, on the ventilator, and responsive to verbal stimulus. The patient had a similar presentation in April. He was admitted to [facility] from May 12 through May 16 with respiratory difficulty. He was diagnosed with pneumonia versus congestive heart failure. The feeling at that time was that he had volume overload. He was empirically treated with Zosyn and [facility] to the [facility] on Augmentin. The patient has a history of renal transplant and is on immunosuppressive therapy. He has had worsening creatinine, possibly secondary to chronic rejection. Past medical history positive for insulin-dependent diabetes mellitus, status post renal transplant, on immunosuppressive therapy, hypertension, hyperlipidemia, congestive heart failure, BPH. PAST SURGICAL HISTORY: Status post left upper extremity AV fistula, coronary artery bypass graft, implanted defibrillator. No known allergies. Medications as an outpatient include clonidine, tacrolimus, Flomax, isosorbide, oxycodone, trazodone, aspirin, Lipitor, Coreg, Plavix, Apresoline, insulin, Procardia, prednisone 5 mg daily, Demadex, mycophenolate. SOCIAL HISTORY: He is a [facility] resident. No active tobacco or alcohol use. SYSTEMS REVIEW: Neurologic: Positive for increased lethargy. No loss of consciousness, seizure activity, or focal weakness. Cardiac: Negative chest pain or palpitations. Respiratory: As per HPI. Gastrointestinal: Negative vomiting or diarrhea. Genitourinary: As per HPI. LABORATORY DATA: White count 8.4, hematocrit 40.6, platelet count 71. BUN 104, creatinine 4.0, total bilirubin 2.5, alkaline phosphatase 25, AST 61. Urinalysis: Less than 1 white cell. Chest x-ray shows increased markings bilaterally, especially right base. Cultures are pending. Vancomycin level 13.1. PHYSICAL EXAMINATION: General: He is awake, on the ventilator. Vital Signs: Temperature 97.4. Blood pressure 172/84. Pulse 83, regular. Respirations 18 per minute. ENT: Sclerae anicteric. Patient is orally intubated. Heart Sounds: S1, S2. Lungs: Mechanically ventilated. Abdomen: Slightly distended, soft. No tenderness elicited. No mass, rebound or rigidity. Extremities: 1+ edema. Superficial ulcerations present on the left lower extremity do not appear to be infected. IMPRESSION: 1. Multiorgan system failure. 2. Respiratory failure. 3. Healthcare acquired pneumonia versus congestive heart failure. 4. 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 5. Status post renal transplant/immunosuppressed state. 6. Hypoglycemia secondary to sepsis. 7. Hypothermia secondary to sepsis. 8. Thrombocytopenia. 9. Diabetes mellitus. Await cultures. Continue respiratory and hemodynamic support. Emergent hemodialysis. Empiric antibiotic coverage for healthcare acquired pneumonia with Zosyn and vancomycin adjusted for renal failure. Prognosis is guarded. Critical care time spent: 38 minutes. Thank you for the kind referral. SAM PEDRO M.D. [id number]
[2017-06-01 16:22] LABS: ARTERIAL BLD GAS O2 SATURATION 98.6 % (90-98.9); ARTERIAL BLOOD GAS BASE EXCESS -0.1 meq/l (-2-2); ARTERIAL BLOOD GAS HCO3 23.3 meq/L (22-26); ARTERIAL BLOOD GAS pH 7.43 (7.35-7.45)
[2017-06-01 16:23] LABS: ALLENS TEST POSITIVE; ART PUNCT SITE RIGHT RADIAL; LPM/O2% 50%; MECH. VENT. ESPRIT; PT. ON O2? YES; TYPE OF O2 OT; VENT RATE 20; VT/PRESS 400
[2017-06-01] MEDS: hydrALAZINE HCL 20 MG/ML VIAL IVPUSH PRN (17:51)
[2017-06-01 22:27] LABS: URINE APPEARANCE SLCLOUDY; URINE BILIRUBIN NEGATIVE (NEGATIVE); URINE BLOOD 3+ (NEGATIVE); URINE COLOR YELLOW; URINE GLUCOSE (UA) NEGATIVE (NEGATIVE); URINE KETONE TRACE (NEGATIVE); URINE LEUK ESTERASE TRACE (NEGATIVE); URINE NITRITE NEGATIVE (NEGATIVE); URINE PROTEIN NEGATIVE (NEGATIVE); URINE UROBILINOGEN NEGATIVE mg/dL (0.2-1.0)
[2017-06-01 22:36] LABS: URINE BACTERIA RARE /hpf (NONE SEEN); URINE HYALINE CAST 14 /lpf; URINE MUCUS RARE; URINE RBC 58 /hpf (0-3); URINE WBC 9 /hpf (3-5)
[2017-06-02] MEDS: methylPREDNISolone NA SUCC 40 MG/1 ML VIAL IVPB SCH ×3 (02:08→18:05)
[2017-06-02] MEDS: PIPERACILLIN/TAZOB 2.25 GM 50 ML IVPB SCH ×3 (02:21→18:05)
[2017-06-02] MEDS ORDERED: PT OWN MED DRAWER 7, Y5N ONE ×3 (03:03→21:34)
[2017-06-02] MEDS: DEXTROSE 10%-WATER - 1,000 ML IV SCH (03:21)
[2017-06-02 05:58] LABS: MCH 25.6 pg (25.7-33.7); MCHC 32.6 g/dl (32.0-35.9); MEAN CELL VOLUME 78.7 fl (80-96); MEAN PLT VOLUME 10.2 fl (7.5-11.1); PLATELET COUNT 71 K/MM3 (134-434); RDW 19.8 % (11.9-15.9); WHITE BLOOD COUNT 5.8 K/mm3 (4.0-10.0)
[2017-06-02] MEDS: HEPARIN NA (PORCINE) 5,000 UNITS/ML 1ML VIAL SQ SCH ×3 (06:11→21:46)
[2017-06-02] MEDS: hydrALAZINE HCL 20 MG/ML VIAL IVPUSH PRN (06:12)
[2017-06-02 06:27] LABS: ANION GAP 17 (8-16); CALCIUM 8.8 mg/dL (8.5-10.1); CO2 21 mmol/L (21-32); GLUCOSE,RANDOM 233 mg/dL (74-106)
--- NOTE | 2017-06-02 07:23 | PN ---
Physical Exam: SUBJECTIVE: Patient seen and examined by me this AM - Spoke w/ ID team this AM. 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 - Patient stable overnight, no major overnight events. - Intubated given increasing acidemia/hypoxia yesterday. On propofol sedation. - Afebrile, no WBC. Currently on solumedrol 40mg q8h. - Plan for transfer to [facility] given possible kidney failure of transplanted kidney. Cr 3.8, baseline unknown. - No pressors. AC vent mode, FiO2 of 50%, PEEP 5. PM - Pt received HD in PM - Awaiting transfer to [facility] through ICU. Per policy, all transplant pt's must be admitted through ICU. OBJECTIVE: Vital Signs Intake & Output 05/30/17 05/31/17 06/01/17 06/02/17 23:59 23:59 23:59 23:59 Intake Total 350 920 111 Output Total 280 500 100 Balance 70 420 11 Weight 72.3 kg 72.756 kg 69.995 kg Period Temp Pulse Resp BP Sys/Gonsalez Pulse Ox Last 24 Hr 97.0 F-98.2 F 50-66 18-22 79-203/48-113 97-100 GENERAL: The patient is sedated, laying in bed, intubated. HEAD: Normal with no signs of trauma. Alopecia. EYES: Pupils small and minimally reactive. Arcus senilis noted. ENT: Mucous membranes moist. Nasopharynx clear NECK: Trachea midline, no lymphadenopathy. R IJ central line in place, no significant erythema or bleeding LUNGS: Mechanical breath sounds, trace crackles at lung bases. Midline healed sternotomy scar. HEART: Regular rate and rhythm, S1, S2 without murmur, rub or gallop. ABDOMEN: Soft, nondistended, hypoactive cordelia sounds, no masses or organomegaly. EXTREMITIES: 2+ pulses, warm, well-perfused, no edema. R healed, necrotic ulcer on medial distal aspect of 1st digit Laboratory Results - last 24 hr CBC, BMP 06/02/17 05:00 06/02/17 05:00 06/01/17 06/01/17 06/01/17 08:20 08:30 09:38 WBC RBC Hgb Hct MCV MCH MCHC RDW Plt Count MPV Puncture Site Right radial ABG pH 7.39 ABG pCO2 at Pt Temp 29.5 L D ABG pO2 at Pt Temp 48.7 L* D ABG HCO3 17.4 L ABG O2 Sat (Measured) 83.3 L ABG O2 Content 15.5 ABG Base Excess -5.9 L Herminio Test Positive O2 Delivery Device Ot Oxygen Flow Rate 30% Vent Mode St Vent Rate 12 Mechanical Rate Bipap PEEP 0.0 Pressure Support Vent 10/5 Sodium Potassium Chloride Carbon Dioxide Anion Gap BUN Creatinine POC Glucometer 89.23382 Random Glucose Calcium Urine Color Urine Appearance Urine pH Urine Protein Urine Glucose (UA) Urine Ketones Urine Blood Urine Nitrite Urine Bilirubin Urine Urobilinogen Ur Leukocyte Esterase Urine RBC Urine WBC Ur Epithelial Cells Urine Bacteria Hyaline Casts Urine Mucus Ur Random Sodium Urine Creatinine Random Vancomycin 13.158 Hepatitis C Antibody 06/01/17 06/01/17 06/01/17 11:50 13:45 16:00 WBC RBC Hgb Hct MCV MCH MCHC RDW Plt Count MPV Puncture Site ABG pH ABG pCO2 at Pt Temp ABG pO2 at Pt Temp ABG HCO3 ABG O2 Sat (Measured) ABG O2 Content ABG Base Excess Herminio Test O2 Delivery Device Oxygen Flow Rate Vent Mode Vent Rate Mechanical Rate PEEP Pressure Support Vent Sodium Potassium Chloride Carbon Dioxide Anion Gap BUN Creatinine POC Glucometer 155.63287 Random Glucose Calcium Urine Color Urine Appearance Urine pH Urine Protein Urine Glucose (UA) Urine Ketones Urine Blood Urine Nitrite Urine Bilirubin Urine Urobilinogen Ur Leukocyte Esterase Urine RBC Urine WBC Ur Epithelial Cells Urine Bacteria Hyaline Casts Urine Mucus Ur Random Sodium 56 Urine Creatinine Random Vancomycin Hepatitis C Antibody Cancelled 06/01/17 06/01/17 06/01/17 16:15 17:18 21:00 WBC RBC Hgb Hct MCV MCH MCHC RDW Plt Count MPV Puncture Site Right radial ABG pH 7.43 ABG pCO2 at Pt Temp 35.7 D ABG pO2 at Pt Temp 111.0 H D ABG HCO3 23.3 ABG O2 Sat (Measured) 98.6 ABG O2 Content 18.1 ABG Base Excess -0.1 Herminio Test Positive O2 Delivery Device Ot Oxygen Flow Rate 50% Vent Mode Ac Vent Rate 20 Mechanical Rate Esprit PEEP 5.0 Pressure Support Vent 400 Sodium Potassium Chloride Carbon Dioxide Anion Gap BUN Creatinine POC Glucometer 158.60084 Random Glucose Calcium Urine Color Yellow Urine Appearance Slcloudy Urine pH 5.0 Urine Protein Negative Urine Glucose (UA) Negative Urine Ketones Trace H Urine Blood 3+ H Urine Nitrite Negative Urine Bilirubin Negative Urine Urobilinogen Negative Ur Leukocyte Esterase Trace Urine RBC 58 Urine WBC 9 Ur Epithelial Cells Rare Urine Bacteria Rare Hyaline Casts 14 Urine Mucus Rare Ur Random Sodium Urine Creatinine Random Vancomycin Hepatitis C Antibody 06/01/17 06/02/17 06/02/17 21:00 05:00 05:00 WBC RBC Hgb Hct MCV MCH MCHC RDW Plt Count MPV Puncture Site ABG pH ABG pCO2 at Pt Temp ABG pO2 at Pt Temp ABG HCO3 ABG O2 Sat (Measured) ABG O2 Content ABG Base Excess Herminio Test O2 Delivery Device Oxygen Flow Rate Vent Mode Vent Rate Mechanical Rate PEEP Pressure Support Vent Sodium 137 Potassium 5.3 H Chloride 99 Carbon Dioxide 21 Anion Gap 17 H BUN 78 H D Creatinine 3.0 H D POC Glucometer Random Glucose 233 H D Calcium 8.8 Urine Color Urine Appearance Urine pH Urine Protein Urine Glucose (UA) Urine Ketones Urine Blood Urine Nitrite Urine Bilirubin Urine Urobilinogen Ur Leukocyte Esterase Urine RBC Urine WBC Ur Epithelial Cells Urine Bacteria Hyaline Casts Urine Mucus Ur Random Sodium Urine Creatinine 51.9 Random Vancomycin 14.653 Hepatitis C Antibody 06/02/17 05:00 WBC 5.8 D RBC 5.29 Hgb 13.6 Hct 41.6 MCV 78.7 L MCH 25.6 L MCHC 32.6 RDW 19.8 H Plt Count 71 L MPV 10.2 D Puncture Site ABG pH ABG pCO2 at Pt Temp ABG pO2 at Pt Temp ABG HCO3 ABG O2 Sat (Measured) ABG O2 Content ABG Base Excess Herminio Test O2 Delivery Device Oxygen Flow Rate Vent Mode Vent Rate Mechanical Rate PEEP Pressure Support Vent Sodium Potassium Chloride Carbon Dioxide Anion Gap BUN Creatinine POC Glucometer Random Glucose Calcium Urine Color Urine Appearance Urine pH Urine Protein Urine Glucose (UA) Urine Ketones Urine Blood Urine Nitrite Urine Bilirubin Urine Urobilinogen Ur Leukocyte Esterase Urine RBC Urine WBC Ur Epithelial Cells Urine Bacteria Hyaline Casts Urine Mucus Ur Random Sodium Urine Creatinine Random Vancomycin Hepatitis C Antibody Active Medications Generic Name Dose Route Start Last Admin Trade Name Freq PRN Reason Stop Dose Admin Chlorhexidine Gluconate 15 ml 06/01/17 10:15 06/01/17 22:19 Peridex - MM 15 ml BID LULU Administration Fentanyl 50 mcg 06/01/17 10:07 06/02/17 06:12 Sublimaze Injection - IVPUSH 06/02/17 10:14 50 mcg Q1H PRN Administration PAIN LEVEL 1-5 Heparin Sodium (Porcine) 5,000 unit 05/31/17 22:00 06/02/17 06:11 Heparin - SQ 5,000 unit TID LULU Administration Hydralazine HCl 10 mg 05/31/17 22:17 06/02/17 06:12 Apresoline Injection - IVPUSH 10 mg Q8H PRN Administration Hypertension SBP >180 Propofol 100 mls @ 2.183 mls/hr 06/01/17 09:30 06/02/17 07:19 Diprivan - IVPB 0 mcg/kg/min TITR LULU Titration Protocol 5 MCG/KG/MIN Piperacillin Sod/Tazobactam Sod 50 mls @ 100 mls/hr 06/01/17 12:00 06/02/17 02: 21 Zosyn 2.25gm Ivpb (Pre-Docked) IVPB 100 mls/hr Q8H-IV LULU Administration Protocol Methylprednisolone Sodium Succinate 40 mg 05/31/17 20:30 06/02/17 02:08 Solu-Medrol - IVPB 40 mg Q8H-IV LULU Administration Tacrolimus 5 mg 05/31/17 22:00 06/01/17 22:31 Prograf (Non Formulary) PO 5 mg BID LULU Administration Microbiology 05/31/17 14:46 Blood - Peripheral Venous Blood Culture - Preliminary Pending Organism 05/31/17 14:46 Blood - Peripheral Venous Blood Culture - Preliminary Pending Organism 05/31/17 14:45 Urine - Urine - Catheterized Urine Culture - Final NO GROWTH OBTAINED Recent imaging - CXR (06/01) - Pleural effusions and congestive changes/bibasilar densities, more prominent on R side vs. L. R-sided pacemaker. ETT and NG tube in place. ASSESSMENT/PLAN: 76 yo man w/ pmh of ESRD s/p L kidney transplant (currently on MMF, tacro, and prednisone), CABG, HTN, IDDM, CHF w/ AICD who presented to ED with hypoglycemia and AMS, w/ suspicion for HCAP. VBG w/ acidosis and placed on BiPaP (ABG 7.33/41 /67), with subsequent intubation for worsening respiratory status. 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 + Blood cx's for GN anaerobes, currently on zosyn for abx coverage, w/ CXR notable for pleural effusions and bibasilar opacities, most prominent in RML and RLL, suggesting of possible multilobar PNA. Plan for transfer to [facility] for further care per transplant team. #Neuro Wean off sedation to assess MS #Cardiac Home HTN meds trend trops #Pulm SBT once sedation d/c'ed Taper steroids #ID Continue Zosyn; day 2 of course blood cultures + for GN anaerobes ID following f/u Sputum cultures #Renal HD this afternoon Continue Tacro for immunosuppresion. F/u tacro level. Hold MMF Trend BUN, Cr Monitor I&Os #Endo ISS Glucose control 100-180 #GI Protonix for GI PPX #PPX Heparin SQ #FEN Fluids: Hold IVFs Electrolytes: Daily BMP, trend BUN/Cr Nutrition: Per nutrition. #Dispo - Transfer to [facility] once ICU bed available. Continue ICU monitoring interim period. Sergio Dempsey, PGY1 Plan discussed with attending, Dr. Maurice Visit type - Emergency Visit Emergency Visit: No - New Patient This patient is new to me today: Yes Date on this admission: 06/02/17 - Critical Care Critical Care patient: Yes Total Critical Care Time (in minutes): 35 Critical Care Statement: The care of this patient involved high complexity decision making to prevent further life threatening deterioration of the patient 's condition and/or to evaluate & treat vital organ system(s) failure or risk of failure.
--- NOTE | 2017-06-02 08:24 | PN ---
Progress Note, Physician Chief Complaint: ID ID follow up for this 76 year old male failed kidney transplant currently seen in ICU after being intubated and empirically treated with Vancomycin & Pip Tazobactam ON vent with twitching like movements not seizures as able to respond to commands verbally. - Current Medication List Current Medications: Active Medications Chlorhexidine Gluconate (Peridex -) 15 ml MM BID LULU Last Admin: 06/01/17 22:19 Dose: 15 ml Fentanyl (Sublimaze Injection -) 50 mcg IVPUSH Q1H PRN PRN Reason: PAIN LEVEL 1-5 Stop: 06/02/17 10:14 Last Admin: 06/02/17 06:12 Dose: 50 mcg Heparin Sodium (Porcine) (Heparin -) 5,000 unit SQ TID LULU Last Admin: 06/02/17 06:11 Dose: 5,000 unit Hydralazine HCl (Apresoline Injection -) 10 mg IVPUSH Q8H PRN PRN Reason: Hypertension SBP >180 Last Admin: 06/02/17 06:12 Dose: 10 mg Propofol (Diprivan -) 100 mls @ 2.183 mls/hr IVPB TITR LULU; 5 MCG/KG/MIN PRN Reason: Protocol Last Titration: 06/02/17 08:02 Dose: 20 mcg/kg/min Piperacillin Sod/Tazobactam Sod (Zosyn 2.25gm Ivpb (Pre-Docked)) 50 mls @ 100 mls/hr IVPB Q8H-IV LULU PRN Reason: Protocol Last Admin: 06/02/17 02:21 Dose: 100 mls/hr Methylprednisolone Sodium Succinate (Solu-Medrol -) 40 mg IVPB Q8H-IV LULU Last Admin: 06/02/17 02:08 Dose: 40 mg Tacrolimus (Prograf (Non Formulary)) 5 mg PO BID LULU Last Admin: 06/01/17 22:31 Dose: 5 mg - Objective Vital Signs: Vital Signs Temperature 97.3 F L 06/02/17 07:55 Pulse Rate 53 L 06/02/17 07:55 Respiratory Rate 20 06/02/17 07:30 Blood Pressure 97/81 06/02/17 07:55 O2 Sat by Pulse Oximetry (%) 97 06/01/17 22:00 Constitutional: Yes: Other (Twitching intubated) Cardiovascular: Yes: Regular Rate and Rhythm, S1, S2. No: Murmur Respiratory: Yes: WNL, Regular, CTA Bilaterally. No: Rales, Rhonchi Gastrointestinal: Yes: Normal Bowel Sounds, Soft. No: Tenderness Extremities: Yes: Other (Dry plantar ulcer) Edema: No Labs: CBC, BMP 06/02/17 05:00 06/02/17 05:00 INR, PTT INR 1.87 (0.82-1.09) H D 05/31/17 14:15 Problem List - Problems (1) Hypothermia Code(s): T68.XXXA - HYPOTHERMIA, INITIAL ENCOUNTER Qualifiers: Encounter type: initial encounter Qualified Code(s): T68.XXXA - Hypothermia, initial encounter (2) Respiratory failure Code(s): J96.90 - RESPIRATORY FAILURE, UNSP, UNSP W HYPOXIA OR HYPERCAPNIA (3) Sepsis Code(s): A41.9 - SEPSIS, UNSPECIFIED ORGANISM Qualifiers: Sepsis type: sepsis due to unspecified organism Qualified Code(s): A41.9 - Sepsis, unspecified organism (4) Thrombocytopenia Code(s): D69.6 - THROMBOCYTOPENIA, UNSPECIFIED (5) Kidney transplant recipient Code(s): Z94.0 - KIDNEY TRANSPLANT STATUS (6) Gram-negative bacteremia Code(s): R78.81 - BACTEREMIA Assessment/Plan Microbiology 05/31/17 14:45 Urine - Urine - Catheterized Urine Culture - Final NO GROWTH OBTAINED 05/31/17 14:46 Blood - Peripheral Venous Blood Culture - Preliminary Pending Organism 05/31/17 14:46 Blood - Peripheral Venous Blood Culture - Preliminary Pending Organism Laboratory Tests 05/31/17 06/01/17 06/02/17 14:15 05:20 05:00 WBC Hgb Plt Count INR 1.87 H D BUN 78 H D Creatinine 3.0 H D Direct Bilirubin 1.7 H AST 61 H ALT 34 Alkaline Phosphatase 225 H 06/02/17 05:00 WBC 5.8 D Hgb 13.6 Plt Count 71 L INR BUN Creatinine Direct Bilirubin AST ALT Alkaline Phosphatase Assessment Sepsis syndrome source unknown ? 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 Critical care time spent 35 minutes Rodri NAGY Await fainl c/s
[2017-06-02] MEDS: TACROLIMUS ANHYDROUS 5 MG CAPSULE (NF) PO SCH (09:01)
[2017-06-02] MEDS: CHLORHEXIDINE GLUCONATE 0.12% 15ML CUP MM SCH ×2 (09:05→21:45)
--- NOTE | 2017-06-02 13:18 | PN ---
Progress Note, Physician History of Present Illness: Pt seen and examined at bedside. He remains intubated in the ICU. He remains lethargic. - Current Medication List Current Medications: Active Medications Chlorhexidine Gluconate (Peridex -) 15 ml MM BID LULU Last Admin: 06/02/17 09:05 Dose: 15 ml Heparin Sodium (Porcine) (Heparin -) 5,000 unit SQ TID LULU Last Admin: 06/02/17 06:11 Dose: 5,000 unit Hydralazine HCl (Apresoline Injection -) 10 mg IVPUSH Q8H PRN PRN Reason: Hypertension SBP >180 Last Admin: 06/02/17 06:12 Dose: 10 mg Propofol (Diprivan -) 100 mls @ 2.183 mls/hr IVPB TITR LULU; 5 MCG/KG/MIN PRN Reason: Protocol Last Titration: 06/02/17 08:02 Dose: 20 mcg/kg/min Piperacillin Sod/Tazobactam Sod (Zosyn 2.25gm Ivpb (Pre-Docked)) 50 mls @ 100 mls/hr IVPB Q8H-IV LULU PRN Reason: Protocol Last Admin: 06/02/17 09:02 Dose: 100 mls/hr Methylprednisolone Sodium Succinate (Solu-Medrol -) 40 mg IVPB Q8H-IV LULU Last Admin: 06/02/17 09:01 Dose: 40 mg Tacrolimus (Prograf (Non Formulary)) 5 mg PO BID LULU Last Admin: 06/02/17 09:01 Dose: 5 mg - Objective Vital Signs: Vital Signs Temperature 98.4 F 06/02/17 10:00 Pulse Rate 50 L 06/02/17 12:00 Respiratory Rate 14 06/02/17 12:00 Blood Pressure 164/75 06/02/17 12:00 O2 Sat by Pulse Oximetry (%) 99 06/02/17 09:51 Constitutional: Yes: Calm Eyes: Yes: Conjunctiva Clear HENT: Yes: Atraumatic Neck: Yes: Supple Cardiovascular: Yes: S1, S2 Respiratory: Yes: Mechanically Ventilated Gastrointestinal: Yes: Soft Genitourinary: Yes: Davila Present, Oliguria Musculoskeletal: Yes: Muscle Weakness Edema: Yes Neurological: Yes: Lethargy Labs: CBC, BMP 06/02/17 05:00 06/02/17 05:00 INR, PTT INR 1.87 (0.82-1.09) H D 05/31/17 14:15 - ....Imaging Chest X-ray: Report Reviewed Problem List - Problems (1) Gram-negative bacteremia Code(s): R78.81 - BACTEREMIA (2) Respiratory failure Code(s): J96.90 - RESPIRATORY FAILURE, UNSP, UNSP W HYPOXIA OR HYPERCAPNIA (3) Kidney transplant recipient Code(s): Z94.0 - KIDNEY TRANSPLANT STATUS (4) Systolic CHF Code(s): I50.20 - UNSPECIFIED SYSTOLIC (CONGESTIVE) HEART FAILURE Assessment/Plan Current Medications Generic Name Dose Route Start Last Admin Trade Name Freq PRN Reason Stop Dose Admin Chlorhexidine Gluconate 15 ml 06/01/17 10:15 06/02/17 09:05 Peridex - MM 15 ml BID LULU Administration Heparin Sodium (Porcine) 5,000 unit 05/31/17 22:00 06/02/17 06:11 Heparin - SQ 5,000 unit TID LULU Administration Hydralazine HCl 10 mg 05/31/17 22:17 06/02/17 06:12 Apresoline Injection - IVPUSH 10 mg Q8H PRN Administration Hypertension SBP >180 Propofol 100 mls @ 2.183 mls/hr 06/01/17 09:30 06/02/17 08:02 Diprivan - IVPB 20 mcg/kg/min TITR LULU Titration Protocol 5 MCG/KG/MIN Piperacillin Sod/Tazobactam Sod 50 mls @ 100 mls/hr 06/01/17 12:00 06/02/17 09: 02 Zosyn 2.25gm Ivpb (Pre-Docked) IVPB 100 mls/hr Q8H-IV LULU Administration Protocol Methylprednisolone Sodium Succinate 40 mg 05/31/17 20:30 06/02/17 09:01 Solu-Medrol - IVPB 40 mg Q8H-IV LULU Administration Tacrolimus 5 mg 05/31/17 22:00 06/02/17 09:01 Prograf (Non Formulary) PO 5 mg BID LULU Administration Impression 1. kidney transplant 2. 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 CHF 4. DM 5. HTN 6. chol 7. CAD 8. non compliance 9. acute respiratory failure requiring intubation 10. ABNER which required HD 11. hyperkalemia 12. 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
[2017-06-02] MEDS ORDERED: TACROLIMUS ANHYDROUS 1 MG CAPSULE (NF) PO SCH (13:20)
--- NOTE | 2017-06-02 13:27 | PN ---
Teaching Attending Note Name of Resident: Sergio Dempsey ATTENDING PHYSICIAN STATEMENT I saw and evaluated the patient. I reviewed the resident's note and discussed the case with the resident. I agree with the resident's findings and plan as documented. SUBJECTIVE: Patient seen and examined in the ICU. Remains intubated and sedated on propofol. No pressors. AC Mode of vent, 50% FiO2 and PEEP 5. CXR: none today Intake & Output 05/30/17 05/31/17 06/01/17 06/02/17 23:59 23:59 23:59 23:59 Intake Total 350 920 111 Output Total 280 500 100 Balance 70 420 11 Weight 159 lb 6.307 oz 160 lb 6.4 oz 154 lb 5 oz Last Vital Signs Temp Pulse Resp BP Pulse Ox 98.4 F 50 L 20 164/75 99 06/02/17 10:00 06/02/17 12:00 06/02/17 13:16 06/02/17 12:00 06/02/17 09:51 Active Medications Chlorhexidine Gluconate (Peridex -) 15 ml MM BID LULU Last Admin: 06/02/17 09:05 Dose: 15 ml Heparin Sodium (Porcine) (Heparin -) 5,000 unit SQ TID LULU Last Admin: 06/02/17 06:11 Dose: 5,000 unit Hydralazine HCl (Apresoline Injection -) 10 mg IVPUSH Q8H PRN PRN Reason: Hypertension SBP >180 Last Admin: 06/02/17 06:12 Dose: 10 mg Propofol (Diprivan -) 100 mls @ 2.183 mls/hr IVPB TITR LULU; 5 MCG/KG/MIN PRN Reason: Protocol Last Titration: 06/02/17 08:02 Dose: 20 mcg/kg/min Piperacillin Sod/Tazobactam Sod (Zosyn 2.25gm Ivpb (Pre-Docked)) 50 mls @ 100 mls/hr IVPB Q8H-IV LULU PRN Reason: Protocol Last Admin: 06/02/17 09:02 Dose: 100 mls/hr Methylprednisolone Sodium Succinate (Solu-Medrol -) 40 mg IVPB Q8H-IV LULU Last Admin: 06/02/17 09:01 Dose: 40 mg Tacrolimus (Prograf (Non Formulary)) 1 mg PO BID LULU Constitutional: Yes: Cachectic, chronically ill appearing Cardiovascular: Yes: S1, S2 Respiratory: Yes: Diminished, Rales, Rhonchi R> L Gastrointestinal: Yes: Soft Extremities: Yes: Cool, Other (dopplerable pulses bilater feet), LUE + thrill/ pulse Edema: LLE: Trace, RLE: Trace Neurological: Yes: does not track, withdrawals to pain bilaterally Laboratory Results - last 24 hr 06/01/17 06/01/17 06/01/17 13:45 16:00 16:15 WBC RBC Hgb Hct MCV MCH MCHC RDW Plt Count MPV Puncture Site Right radial ABG pH 7.43 ABG pCO2 at Pt Temp 35.7 D ABG pO2 at Pt Temp 111.0 H D ABG HCO3 23.3 ABG O2 Sat (Measured) 98.6 ABG O2 Content 18.1 ABG Base Excess -0.1 Herminio Test Positive O2 Delivery Device Ot Oxygen Flow Rate 50% Vent Mode Ac Vent Rate 20 Mechanical Rate Esprit PEEP 5.0 Pressure Support Vent 400 Sodium Potassium Chloride Carbon Dioxide Anion Gap BUN Creatinine POC Glucometer 155.60670 Random Glucose Calcium Urine Color Urine Appearance Urine pH Urine Protein Urine Glucose (UA) Urine Ketones Urine Blood Urine Nitrite Urine Bilirubin Urine Urobilinogen Ur Leukocyte Esterase Urine RBC Urine WBC Ur Epithelial Cells Urine Bacteria Hyaline Casts Urine Mucus Ur Random Sodium 56 Urine Creatinine Random Vancomycin 06/01/17 06/01/17 06/01/17 17:18 21:00 21:00 WBC RBC Hgb Hct MCV MCH MCHC RDW Plt Count MPV Puncture Site ABG pH ABG pCO2 at Pt Temp ABG pO2 at Pt Temp ABG HCO3 ABG O2 Sat (Measured) ABG O2 Content ABG Base Excess Herminio Test O2 Delivery Device Oxygen Flow Rate Vent Mode Vent Rate Mechanical Rate PEEP Pressure Support Vent Sodium Potassium Chloride Carbon Dioxide Anion Gap BUN Creatinine POC Glucometer 158.87353 Random Glucose Calcium Urine Color Yellow Urine Appearance Slcloudy Urine pH 5.0 Urine Protein Negative Urine Glucose (UA) Negative Urine Ketones Trace H Urine Blood 3+ H Urine Nitrite Negative Urine Bilirubin Negative Urine Urobilinogen Negative Ur Leukocyte Esterase Trace Urine RBC 58 Urine WBC 9 Ur Epithelial Cells Rare Urine Bacteria Rare Hyaline Casts 14 Urine Mucus Rare Ur Random Sodium Urine Creatinine 51.9 Random Vancomycin 06/01/17 06/02/17 06/02/17 23:04 05:00 05:00 WBC RBC Hgb Hct MCV MCH MCHC RDW Plt Count MPV Puncture Site ABG pH ABG pCO2 at Pt Temp ABG pO2 at Pt Temp ABG HCO3 ABG O2 Sat (Measured) ABG O2 Content ABG Base Excess Herminio Test O2 Delivery Device Oxygen Flow Rate Vent Mode Vent Rate Mechanical Rate PEEP Pressure Support Vent Sodium 137 Potassium 5.3 H Chloride 99 Carbon Dioxide 21 Anion Gap 17 H BUN 78 H D Creatinine 3.0 H D POC Glucometer 199.71972 Random Glucose 233 H D Calcium 8.8 Urine Color Urine Appearance Urine pH Urine Protein Urine Glucose (UA) Urine Ketones Urine Blood Urine Nitrite Urine Bilirubin Urine Urobilinogen Ur Leukocyte Esterase Urine RBC Urine WBC Ur Epithelial Cells Urine Bacteria Hyaline Casts Urine Mucus Ur Random Sodium Urine Creatinine Random Vancomycin 14.653 06/02/17 06/02/17 05:00 12:08 WBC 5.8 D RBC 5.29 Hgb 13.6 Hct 41.6 MCV 78.7 L MCH 25.6 L MCHC 32.6 RDW 19.8 H Plt Count 71 L MPV 10.2 D Puncture Site ABG pH ABG pCO2 at Pt Temp ABG pO2 at Pt Temp ABG HCO3 ABG O2 Sat (Measured) ABG O2 Content ABG Base Excess Herminio Test O2 Delivery Device Oxygen Flow Rate Vent Mode Vent Rate Mechanical Rate PEEP Pressure Support Vent Sodium Potassium Chloride Carbon Dioxide Anion Gap BUN Creatinine POC Glucometer 303.47040 Random Glucose Calcium Urine Color Urine Appearance Urine pH Urine Protein Urine Glucose (UA) Urine Ketones Urine Blood Urine Nitrite Urine Bilirubin Urine Urobilinogen Ur Leukocyte Esterase Urine RBC Urine WBC Ur Epithelial Cells Urine Bacteria Hyaline Casts Urine Mucus Ur Random Sodium Urine Creatinine Random Vancomycin Problem List - Problems (1) Hypothermia Code(s): T68.XXXA - HYPOTHERMIA, INITIAL ENCOUNTER Qualifiers: Encounter type: initial encounter Qualified Code(s): T68.XXXA - Hypothermia, initial encounter (2) Sepsis Code(s): A41.9 - SEPSIS, UNSPECIFIED ORGANISM Qualifiers: Sepsis type: sepsis due to unspecified organism Qualified Code(s): A41.9 - Sepsis, unspecified organism (3) Shortness of breath Code(s): R06.02 - SHORTNESS OF BREATH (4) Hepatic congestion Code(s): K76.1 - CHRONIC PASSIVE CONGESTION OF LIVER (5) Kidney transplant recipient Code(s): Z94.0 - KIDNEY TRANSPLANT STATUS (6) Metabolic encephalopathy Code(s): G93.41 - METABOLIC ENCEPHALOPATHY (7) Systolic CHF Code(s): I50.20 - UNSPECIFIED SYSTOLIC (CONGESTIVE) HEART FAILURE (8) Diabetes mellitus Code(s): E11.9 - TYPE 2 DIABETES MELLITUS WITHOUT COMPLICATIONS (9) Renal failure, chronic Code(s): N18.9 - CHRONIC KIDNEY DISEASE, UNSPECIFIED Assessment/Plan Lighten sedation to assess mental status HD per Renal Glycemic control VTE prophylaxis SBTs once awake ABX per ID Follow final cultures Steroid taper For possible transfer to transplant service at [facility] Dr Maurice Critical care time spent in reviewing chart, evaluating patient and formulating plan - 35 minutes.
--- NOTE | 2017-06-02 18:13 | PN ---
Progress Note, Physician Chief Complaint: FAMILY BEDSIDE PATIENT INTUBATED SEDATED - Current Medication List Current Medications: Active Medications Chlorhexidine Gluconate (Peridex -) 15 ml MM BID [facility] Last Admin: 06/02/17 09:05 Dose: 15 ml Heparin Sodium (Porcine) (Heparin -) 5,000 unit SQ TID [facility] Last Admin: 06/02/17 18:05 Dose: 5,000 unit Hydralazine HCl (Apresoline Injection -) 10 mg IVPUSH Q8H PRN PRN Reason: Hypertension SBP >180 Last Admin: 06/02/17 06:12 Dose: 10 mg Piperacillin Sod/Tazobactam Sod (Zosyn 2.25gm Ivpb (Pre-Docked)) 50 mls @ 100 mls/hr IVPB Q8H-IV [facility] PRN Reason: Protocol Last Admin: 06/02/17 18:05 Dose: 100 mls/hr Methylprednisolone Sodium Succinate (Solu-Medrol -) 40 mg IVPB Q8H-IV [facility] Last Admin: 06/02/17 18:05 Dose: 40 mg Tacrolimus (Prograf (Non-Formulary)) 1 mg PO BID [facility] - Objective Vital Signs: Vital Signs Temperature 98.8 F 06/02/17 14:05 Pulse Rate 58 L 06/02/17 17:15 Respiratory Rate 20 06/02/17 17:15 Blood Pressure 138/68 06/02/17 17:15 O2 Sat by Pulse Oximetry (%) 99 06/02/17 09:51 Constitutional: Yes: Severe Distress Eyes: Yes: Other HENT: Yes: WNL Neck: Yes: Other Cardiovascular: Yes: Tachycardia Respiratory: Yes: Mechanically Ventilated, Rhonchi Gastrointestinal: Yes: WNL Genitourinary: Yes: Davila Present, Other Musculoskeletal: Yes: Muscle Weakness Extremities: Yes: Other Edema: No Peripheral Pulses WNL: Yes Integumentary: Yes: Rash, Venous Stasis Changes Wound/Incision: Yes: Other Neurological: Yes: Other ...Motor Strength: LLE, RLE Psychiatric: Yes: Other Labs: CBC, BMP 06/02/17 05:00 06/02/17 05:00 INR, PTT INR 1.87 (0.82-1.09) H D 05/31/17 14:15 Problem List - Problems (1) Hypothermia Code(s): T68.XXXA - HYPOTHERMIA, INITIAL ENCOUNTER Qualifiers: Encounter type: initial encounter Qualified Code(s): T68.XXXA - Hypothermia, initial encounter (2) Respiratory failure Code(s): J96.90 - RESPIRATORY FAILURE, UNSP, UNSP W HYPOXIA OR HYPERCAPNIA Qualifiers: Chronicity: acute Respiratory failure complication: unspecified whether with hypoxia or hypercapnia Qualified Code(s): J96.00 - Acute respiratory failure, unspecified whether with hypoxia or hypercapnia (3) Sepsis Code(s): A41.9 - SEPSIS, UNSPECIFIED ORGANISM Qualifiers: Sepsis type: sepsis due to unspecified organism Qualified Code(s): A41.9 - Sepsis, unspecified organism (4) Shortness of breath Code(s): R06.02 - SHORTNESS OF BREATH (5) Kidney transplant recipient Code(s): Z94.0 - KIDNEY TRANSPLANT STATUS (6) Metabolic encephalopathy Code(s): G93.41 - METABOLIC ENCEPHALOPATHY (7) Systolic CHF Code(s): I50.20 - UNSPECIFIED SYSTOLIC (CONGESTIVE) HEART FAILURE (8) Diabetes mellitus Code(s): E11.9 - TYPE 2 DIABETES MELLITUS WITHOUT COMPLICATIONS Qualifiers: Diabetes mellitus type: type 2 Chronic kidney disease stage: stage 4 ( severe) (9) Renal failure, chronic Code(s): N18.9 - CHRONIC KIDNEY DISEASE, UNSPECIFIED Qualifiers: Chronic kidney disease stage: stage 4 (severe) Qualified Code(s): N18.4 - Chronic kidney disease, stage 4 (severe) (10) Respiratory distress Code(s): R06.00 - DYSPNEA, UNSPECIFIED (11) Pneumonia Code(s): J18.9 - PNEUMONIA, UNSPECIFIED ORGANISM Qualifiers: Laterality: right Assessment/Plan IV ABX FOR PNA VENT SUPPORT TRANSFER TO [facility] WHEN BED AVAILABLE PROGRAF GIVEN MONITOR LEVELS HD PER RENAL FAMILY BEDSIDE ALL QUESTIONS ANSWERED
[2017-06-02] MEDS ORDERED: PROPOFOL 200 ML ONE (18:34)
[2017-06-02 20:05] VITALS: TEMP 99.3
[2017-06-02] MEDS: PROPOFOL 100 ML IVPB SCH (21:45)
[2017-06-02 22:43] VITALS: BP 166/69; PULSE 60
[2017-06-03] MEDS: PROPOFOL 100 ML IVPB SCH (00:25)
[2017-06-03] MEDS ORDERED: INSULIN SLIDING SCALE (NOVOLOG) 1 VIAL SQ SCH ×2 (07:00)
[2017-06-04 00:06] LABS: HEP B SURFACE AB Non Reactive (.)
== END 2017-06-03 00:36 | disposition short-term general hospital (02) | DRG 871 ==
LOC: JER 13:46 → JERBED 18:25 → JICU 18:32
PROVIDERS: ADMIT Family Medicine; ATTEND Family Medicine
PROC: 5A1945Z Respiratory Ventilation, 24-96 Consecutive Hours (ICD-10-PCS; principal; 2017-06-01)
PROC: 0BH17EZ Insertion of Endotracheal Airway into Trachea, Via Natural or Artificial Opening (ICD-10-PCS; 2017-06-01)
PROC: 5A1D60Z (ICD-10-PCS; 2017-06-02)
DX: A41.9 Sepsis, unspecified organism (principal); J18.9 Pneumonia, unspecified organism; J96.01 Acute respiratory failure with hypoxia; N18.6 End stage renal disease; Z94.0 Kidney transplant status; N17.9 Acute kidney failure, unspecified; I13.2 Hypertensive heart and chronic kidney disease with heart failure and with stage 5 chronic kidney disease, or end stage renal disease; E11.22 Type 2 diabetes mellitus with diabetic chronic kidney disease; E78.5 Hyperlipidemia, unspecified; I25.10 Atherosclerotic heart disease of native coronary artery without angina pectoris; E87.5 Hyperkalemia; D69.6 Thrombocytopenia, unspecified; Z99.2 Dependence on renal dialysis; Z79.4 Long term (current) use of insulin
CPT/HCPCS: 31500; 36415; 36600; 71010-TC; 76776-TC; 80048; 80053; 80076; 81003; 81015; 82553; 82570; 82803; 83605; 83735; 84100; 84300; 84484; 85025; 85027; 85610; 85730; 86704; 86706; 86708; 86803; 86850; 86900; 86901; 87040; 87070; 87076; 87086; 87205; 87340; 93005; 93010; 94002; 94660; 99284-25; G0480; J1644